=== PATIENT | female | born 1955 | race Caucasian/White ===

== ENCOUNTER 2017-04-17 12:22 | Emergency (ER) | payer OTHER ==
[2017-04-17 12:30] VITALS: BP 142/77; PULSE 70; TEMP 97.7; BMI 31.3
--- NOTE | 2017-04-17 14:14 | PDOC ---
History of Present Illness - General Chief Complaint: Back Pain Stated Complaint: LOWER HIP/LEGS PAIN Time Seen by Provider: 04/17/17 13:01 History Source: Patient Exam Limitations: No Limitations - History of Present Illness Initial Comments: 04/17/17 14:29 My chief complaint: Lower back pain radiating down but ox hip areas and down legs History of present illness: Patient is a 61-year-old female with a history of [id number]-ztemhirtv diabetes, restless leg syndrome, migraines, hyperlipidemia , mitral valve prolapse, and history of herniated disc from L1-L4 noted on an MRI from 04/21/2013. Patient is here today reporting that she started to feel lower back pain radiating to her buttocks and hip areas and then down bilateral legs 4 days ago. Patient is at [employer] and does do some lifting. Patient denies any numbness of her legs or any saddle anesthesia. Patient does have intermittent incontinency with laughing however this is been for many years and nothing worse. 04/17/17 14:57 04/17/17 14:57 Occurred: reports: other (4 days ) Severity: reports: moderate Pain Location: reports: back (lower back radiates to buttock/hip down b/l legs) , lower extremity (b/l legs ) Method of Injury: Yes: unknown Modifying Factors: improves with: None Loss of Consciousness: no loss of consciousness Past History - Past Medical History Allergies/Adverse Reactions: Allergies Allergy/AdvReac Type Severity Reaction Status Date / Time No Known Allergies Allergy Verified 04/17/17 12:25 Home Medications: Ambulatory Orders Aspirin 81 mg PO DAILY 03/03/14 Multivits W-Iron,Hematinic [Spectravite] 1 each PO DAILY 03/03/14 [place]-3 Acid Ethyl Esters [Lovaza -] 2,000 mg PO BID 03/03/14 Omeprazole 40 mg PO DAILY 03/03/14 Pramipexole Dihydrochloride [Mirapex -] 0.25 mg PO BID 03/03/14 Rosuvastatin Calcium [Crestor] 10 mg PO DAILY 03/03/14 Topiramate 50 mg PO BID 03/03/14 Oxycodone HCl/Acetaminophen [Percocet 5-325 mg Tablet] 1 tab PO Q6H PRN #12 tablet MDD 4 04/17/17 Asthma: Yes Cardiac Disorders: Yes (MVP) Diabetes: Yes Hypercholesterolemia: Yes Suicide Attempt (Hx): No - Surgical History Cholecystectomy: Yes - Family Disease History Family Disease History: Heart Disease: Father - Immunization History Immunization Up to Date: Yes - Psycho/Social/Smoking Cessation Hx Anxiety: No Suicidal Ideation: No Smoking Status: No Smoking History: Never smoked Years of Tobacco Use: 0 Have you smoked in the past 12 months: No Number of Cigarettes Smoked Daily: 2 If you are a former smoker, when did you quit?: years ago Information on smoking cessation initiated: No 'Breaking Loose' booklet given: 03/03/14 Hx Alcohol Use: No Drug/Substance Use Hx: No Substance Use Type: None Hx Substance Use Treatment: No Review of Systems - Review of Systems Able to Perform ROS?: Yes Constitutional: No: Symptoms Reported HEENTM: No: Symptoms Reported Respiratory: No: Symptoms reported Cardiac (ROS): No: Symptoms Reported ABD/GI: No: Symptoms Reported : No: Symptoms Reported Musculoskeletal: Yes: Back Pain (radiates across back than to b/l buttock/hip and down b/l legs for 4 days ) Integumentary: No: Symptoms Reported Neurological: No: Symptoms reported *Physical Exam - Vital Signs Last Vital Signs Temp Pulse Resp BP Pulse Ox 97.7 F 70 18 142/77 97 04/17/17 12:23 04/17/17 12:23 04/17/17 12:23 04/17/17 12:23 04/17/17 12:23 - Physical Exam General Appearance: Yes: Appropriately Dressed Respiratory/Chest: positive: Lungs Clear, Normal Breath Sounds. negative: Chest Tender, Respiratory Distress Cardiovascular: positive: Regular Rhythm, Regular Rate, S1, S2 Gastrointestinal/Abdominal: positive: Normal Bowel Sounds, Soft. negative: Tender, Organomegaly, Pulsatile Mass, Distended, Guarding, Rebound, Tenderness, Hernia, Mass, Hepatomegaly, Spleenomegaly Musculoskeletal: positive: Normal Inspection, Decreased Range of Motion (at waist ). negative: CVA Tenderness, CVA Tenderness (R), CVA Tenderness (L), Vertebral Tenderness Extremity: positive: Normal Capillary Refill, Normal Inspection, Normal Range of Motion Integumentary: positive: Normal Color Neurologic: positive: Alert, Normal Response, Motor Strength 5/5 (b/l legs ), Responsive, Other (negative b/l legs ). negative: Respond to painful stimul, Numbness, Sensory Deficit Deep Tendon Reflexes: Knee (L): 3+, Knee (R): 3+ Medical Decision Making - Medical Decision Making 04/17/17 14:58 Patient is a 61-year-old female with a history of kpo-amfwvyi-yofcfmmbp diabetes, restless leg syndrome, migraines, hyperlipidemia, mitral valve prolapse, and history of herniated disc from L1-L4 noted on an MRI from 2012. Patient is here today reporting that she started to feel lower back pain radiating to her buttocks and hip areas and then down bilateral legs 4 days ago. Patient is at [employer] and does do some lifting. Patient denies any numbness of her legs or any saddle anesthesia. Patient does have intermittent incontinency with laughing however this is been for many years and nothing worse. Pt. denies any recent lower back pain with radiculopathy PLAN: xray lumbar sacral multi endplate spurs and multilevel mild to moderate disc space is noted. Moderate to advanced degenerative changes of the posterior elements are noted. There is osteopenia. No fracture or subluxation is seen. Impression degenerative changes Dr. Castañeda percocet 5mg/325mg po now than every 6 hrs every 6 hrs prn pain # 12 tabs Follow up with orthopedist and neurologist as soon as possible 04/17/17 15:06 04/17/17 15:44 04/17/17 15:53 *DC/Admit/Observation/Transfer Diagnosis at time of Disposition: Lumbar pain with radiation down both legs - Discharge Dispostion Disposition: HOME Condition at time of disposition: Stable - Prescriptions Prescriptions: Oxycodone HCl/Acetaminophen [Percocet 5-325 mg Tablet] 1 tab PO Q6H PRN #12 tablet MDD 4 PRN Reason: Pain Level 6-10 - Referrals Referrals: Zahra Aviles MD [Primary Care Provider] - Lorenzo Kelly MD [Staff Physician] - - Patient Instructions Additional Instructions: AVOID any strenuous activities or exercise FOLLOW UP WITH YOUR NEUROLOGIST SOON POSSIBLE FOLLOW UP WITH ORTHOPEDIST SOON POSSIBLE RETURN TO EMERGENCY ROOM IF ANY NUMBNESS OF LEGS OR GROIN OR WORSENING PAIN PATIENT VOICED UNDERSTANDING OF DISCHARGE INSTRUCTIONS AND ALL QUESTIONS WERE ANSWERED - Post Discharge Activity Work/School Note: Back to Work
[2017-04-17] MEDS ORDERED: OXYCODONE/APAP 5/325MG COMBO TABLET PO ONE (14:22)
[2017-04-17] MEDS ORDERED: OXYCODONE/APAP 5/325MG COMBO TABLET ONE (14:25)
== END 2017-04-17 16:02 | disposition home or self-care (01) ==
LOC: JERFT 12:22
DX: M54.5 Low back pain (principal); E78.5 Hyperlipidemia, unspecified; E11.9 Type 2 diabetes mellitus without complications; I34.1 Nonrheumatic mitral (valve) prolapse; G25.81 Restless legs syndrome; Z79.82 Long term (current) use of aspirin
CPT/HCPCS: 72100-TC; 99281-25

== ENCOUNTER 2017-07-25 09:55 | Emergency (ER) | payer OTHER ==
[2017-07-25 10:01] VITALS: BP 139/71; PULSE 77; TEMP 98; BMI 31.3
[2017-07-25] MEDS ORDERED: KETOROLAC TROMETHAMINE 60 MG/2 ML VIAL IM ONE (11:05)
[2017-07-25] MEDS ORDERED: KETOROLAC TROMETHAMINE 60 MG/2 ML VIAL ONE (11:09)
--- NOTE | 2017-07-25 12:20 | PDOC ---
History of Present Illness - General Chief Complaint: Pain Stated Complaint: LT HEEL PAIN Time Seen by Provider: 07/25/17 10:50 History Source: Patient Exam Limitations: No Limitations - History of Present Illness Initial Comments: 07/25/17 12:16 61 yr female with 4 days left heel pain. denies injury works at [employer] standing long hours. pt denies redness or fever. Occurred: reports: just prior to arrival Past History - Past Medical History Allergies/Adverse Reactions: Allergies Allergy/AdvReac Type Severity Reaction Status Date / Time No Known Allergies Allergy Verified 07/25/17 09:58 Home Medications: Ambulatory Orders Aspirin 81 mg PO DAILY 03/03/14 Multivits W-Iron,Hematinic [Spectravite] 1 each PO DAILY 03/03/14 [place]-3 Acid Ethyl Esters [Lovaza -] 2,000 mg PO BID 03/03/14 Omeprazole 40 mg PO DAILY 03/03/14 Pramipexole Dihydrochloride [Mirapex -] 0.25 mg PO BID 03/03/14 Rosuvastatin Calcium [Crestor] 10 mg PO DAILY 03/03/14 Topiramate 50 mg PO BID 03/03/14 Oxycodone HCl/Acetaminophen [Percocet 5-325 mg Tablet] 1 tab PO Q6H PRN #12 tablet MDD 4 04/17/17 Naproxen [Naprosyn -] 500 mg PO BID PRN #14 tablet 07/25/17 Asthma: Yes Cardiac Disorders: Yes (MVP) Diabetes: Yes Hypercholesterolemia: Yes Suicide Attempt (Hx): No - Surgical History Cholecystectomy: Yes - Family Disease History Family Disease History: Heart Disease: Father - Immunization History Immunization Up to Date: Yes - Psycho/Social/Smoking Cessation Hx Anxiety: No Suicidal Ideation: No Smoking Status: No Smoking History: Former smoker Years of Tobacco Use: 0 Have you smoked in the past 12 months: No Number of Cigarettes Smoked Daily: 2 If you are a former smoker, when did you quit?: years ago Information on smoking cessation initiated: No 'Breaking Loose' booklet given: 03/03/14 Hx Alcohol Use: No Drug/Substance Use Hx: No Substance Use Type: None Hx Substance Use Treatment: No *Physical Exam - Vital Signs Last Vital Signs Temp Pulse Resp BP Pulse Ox 98 F 77 19 139/71 98 07/25/17 09:58 07/25/17 09:58 07/25/17 09:58 07/25/17 09:58 07/25/17 09:58 - Physical Exam General Appearance: Yes: Nourished, Appropriately Dressed HEENT: positive: EOMI, KRISTIE Extremity: positive: Normal Capillary Refill, Normal Inspection, Normal Range of Motion, Tender (posterior heel, ttp , no swelling or redness , nv intact, achiles tendon intact ) Integumentary: positive: Normal Color, Dry, Warm Neurologic: positive: Fully Oriented, Alert, Normal Mood/Affect, Normal Response , Motor Strength / Procedures - Splinting Progress: 07/25/17 12:17 naz wrap to heel and soft sole shoe ED Treatment Course - RADIOLOGY Radiology Studies Ordered: Category Date Time Status ANKLE-LEFT [RAD] Stat Radiology 07/25/17 11:04 Completed - Medications Given in the ED: ED Medications Discontinued Medications Generic Name Dose Route Start Last Admin Trade Name Freq PRN Reason Stop Dose Admin Ketorolac Tromethamine 60 mg 07/25/17 11:05 07/25/17 11:13 Toradol Injection - IM 07/25/17 11:06 60 mg ONCE ONE Administration Medical Decision Making - Medical Decision Making 07/25/17 12:16 cc: pain to back of heel left side for 4 days no trauma no redness or fever pt states tender with walking and to touch. *DC/Admit/Observation/Transfer Diagnosis at time of Disposition: Heel spur - Discharge Dispostion Disposition: HOME Condition at time of disposition: Good - Prescriptions Prescriptions: Naproxen [Naprosyn -] 500 mg PO BID PRN #14 tablet PRN Reason: Pain - Referrals Referrals: Zahra Aviles MD [Primary Care Provider] - Manas Lozano MD [Staff Physician] - - Patient Instructions Additional Instructions: please follow with the combat control manager call today to make appointment use the naz wrap and hard sole shoe as needed you can also purchase in the store a heel pad () to put in your shoe to help with pain take naprosyn for pain as needed
== END 2017-07-25 12:21 | disposition home or self-care (01) ==
LOC: JERFT 09:55
PROC: 3E0233Z Introduction of Anti-inflammatory into Muscle, Percutaneous Approach (ICD-10-PCS; principal; 2017-07-25)
DX: M77.9 Enthesopathy, unspecified (principal); E78.00 Pure hypercholesterolemia, unspecified; E11.9 Type 2 diabetes mellitus without complications; I34.1 Nonrheumatic mitral (valve) prolapse; J45.909 Unspecified asthma, uncomplicated
CPT/HCPCS: 73610-TC-LT; 96372; 99281-25

== ENCOUNTER 2018-02-04 07:05 | Day surgery (SDC) | payer OTHER ==
[2018-02-03 15:03] VITALS: BMI 34.1
[2018-02-04] MEDS ORDERED: PROPOFOL 20 ML ONE ×4 (08:01)
[2018-02-04] MEDS ORDERED: SUCCINYLCHOLINE CHLORIDE 200 MG/10 ML VIAL ONE (08:01)
[2018-02-04 08:50] VITALS: TEMP 98.3
[2018-02-04 09:30] VITALS: BP 112/50; PULSE 60
--- NOTE | 2018-02-05 14:07 | PATH ---
Surgical Pathology Report Patient Name: CLEMENT CORRALES [facility]. Rec. #: [id number] /Age/Gender: 1955 (Age: 62) / F Account: [id number] Location: U-ENDOSCOPY Taken: 02/04/2018 Received: 02/04/2018 Reported: 02/05/2018 Physicians: Melvin Prieto M.D. Specimen(s) Received BX CECAL VALVE POLYP Clinical History Colon cancer screening Colon polyp, diverticulosis Final Diagnosis COLON, ILEOCECAL VALVE, BIOPSY: HYPERPLASTIC POLYP. Electronically Signed Eric Mcadams M.D. Gross Description Received in formalin, labeled "biopsy cecal valve polyp" is a neal, irregular portion of soft tissue measuring 0.3 cm. in greatest dimension. The specimen is submitted in toto in one cassette. [facility]/02/04/2018 [facility]/02/04/2018
== END 2018-02-04 09:40 | disposition home or self-care (01) ==
LOC: JASU-ENDO 07:05
PROVIDERS: ATTEND Internal Medicine Gastroenterology
PROC: 0DBC8ZX Excision of Ileocecal Valve, Via Natural or Artificial Opening Endoscopic, Diagnostic (ICD-10-PCS; principal; 2018-02-04 08:00)
DX: Z12.11 Encounter for screening for malignant neoplasm of colon (principal); D12.6 Benign neoplasm of colon, unspecified; K57.30 Diverticulosis of large intestine without perforation or abscess without bleeding; K64.8 Other hemorrhoids
CPT/HCPCS: 82962; 88305-TC

== ENCOUNTER 2018-05-22 08:43 | Emergency (ER) | payer SELFPAY ==
[2018-05-22 09:44] VITALS: TEMP 97.3; BMI 33.5
[2018-05-22] MEDS ORDERED: ACETAMINOPHEN 500 MG TABLET (FP) PO ONE (09:46)
--- NOTE | 2018-05-22 11:04 | PDOC ---
History of Present Illness - General Stated Complaint: SYNCOPY Time Seen by Provider: 05/22/18 08:55 - History of Present Illness Initial Comments: 05/22/18 10:46 62 F with h/o NIDDM, HTN, HDL, asthma, hypercholesterolemia, migraines, presents to ED with syncopal episode. Pt states that she was at work today when she started to feel lightheaded and flushed. She states that she felt like her blood sugar was low because she has had these symptoms in the past when her sugar was low. Pt drank some coffee with sugar in it but shortly after, she lost consciousness. Pt states that the next thing she remembers is waking up on the floor with her coworkers checking her sugar. Pt denies ever having CP/SOB/ palpitations. Denies any symptoms currently other than a headache. Does not know if she hit her head or not. Pt states that she took her diabetes medication this morning as scheduled after eating breakfast. Her sugar this morning was in the 90s. Pt denies any recent F/C. Denies N/V. Pt has had multiple similar episodes in the past, all of which she attribute to low blood sugar. Denies h/o cardiac arrhythmia. Past History - Past Medical History Allergies/Adverse Reactions: Allergies Allergy/AdvReac Type Severity Reaction Status Date / Time No Known Allergies Allergy Verified 07/25/17 09:58 Home Medications: Ambulatory Orders Aspirin 81 mg PO DAILY 03/03/14 Pramipexole Dihydrochloride [Mirapex -] 0.25 mg PO TID 03/03/14 Rosuvastatin Calcium [Crestor] 10 mg PO DAILY 03/03/14 Topiramate 50 mg PO DAILY 03/03/14 Fish Oil/Borage/Flax/Om3,6,9 1 [[place] 3-6-9 1,200 mg Softgel] 1 cap PO DAILY Omeprazole 20 mg PO DAILY 02/03/18 Sitagliptin Phos/Metformin HCl [Janumet 50-500 mg Tablet] 2 tab PO BID 02/03/18 Multivitamin with Iron [Multivitamins with Iron] 1 each PO DAILY 02/04/18 Anemia: No Asthma: Yes Cancer: No Cardiac Disorders: Yes (MVP) CVA: No COPD: No DVT: No Dementia: No Diabetes: Yes (NIDDM) Dialysis: No GI Disorders: No Disorders: No HTN: No Hypercholesterolemia: Yes Kidney Stones: No Liver Disease: No Psychiatric Problems: No Seizures: No Thyroid Disease: No Lung CA: No - Surgical History Abdominal Surgery: No Appendectomy: No Cardiac Surgery: No Cholecystectomy: Yes (LAPAROSCOPIC) Gastric Stapling: No GI Surgery: No Lung Surgery: No Neurologic Surgery: No Orthopedic Surgery: Yes (RIGHT SHOULDER SURGERY) - Family Disease History Family Disease History: Heart Disease: Father - Immunization History Immunization Up to Date: Yes - Suicide/Smoking/Psychosocial Hx Smoking Status: No Smoking History: Never smoked Years of Tobacco Use: 0 Have you smoked in the past 12 months: No Number of Cigarettes Smoked Daily: 2 If you are a former smoker, when did you quit?: years ago Information on smoking cessation initiated: No 'Breaking Loose' booklet given: 03/03/14 Hx Alcohol Use: No Drug/Substance Use Hx: No Substance Use Type: None Hx Substance Use Treatment: No Cardiac Specific PMH - Complaint Specific PMHX GERD: No Myocardial Infarction: No Pacemaker: Yes (HYPERLIPIDEMIA) Review of Systems - Review of Systems Comments:: 05/22/18 10:50 "GENERAL/CONSTITUTIONAL: No fever or chills. No weakness. HEAD, EYES, EARS, NOSE AND THROAT: No change in vision. No ear pain or discharge. No sore throat. CARDIOVASCULAR: No chest pain or shortness of breath. RESPIRATORY: No cough, wheezing, or hemoptysis. GASTROINTESTINAL: No nausea, vomiting, diarrhea or constipation. GENITOURINARY: No dysuria, frequency, or change in urination. MUSCULOSKELETAL: No joint or muscle swelling or pain. No neck or back pain. SKIN: No rash NEUROLOGIC: + headache, no vertigo or change in strength/sensation. ENDOCRINE: No increased thirst. No abnormal weight change. HEMATOLOGIC/LYMPHATIC: No anemia, easy bleeding, or history of blood clots. ALLERGIC/IMMUNOLOGIC: No hives or skin allergy. " *Physical Exam - Vital Signs Last Vital Signs Temp Pulse Resp BP Pulse Ox 97.3 F L 72 18 138/72 98 05/22/18 09:00 05/22/18 09:00 05/22/18 09:00 05/22/18 09:00 05/22/18 09:00 - Physical Exam Comments: 05/22/18 11:05 "GENERAL: Awake, alert, and fully oriented, in no acute distress. HEAD: No signs of trauma EYES: PERRLA, EOMI, sclera anicteric, conjunctiva clear ENT: Auricles normal inspection, hearing grossly normal, nares patent, oropharynx clear without exudates. Moist mucosa NECK: Nontender, no stepoffs, Normal ROM, supple, no lymphadenopathy, JVD, or masses LUNGS: Breath sounds equal, clear to auscultation bilaterally. No wheezes, and no crackles HEART: Regular rate and rhythm, normal S1 and S2, no murmurs, rubs or gallops ABDOMEN: Soft, nontender, normoactive bowel sounds. No guarding, no rebound. No masses EXTREMITIES: Normal range of motion, no edema. No clubbing or cyanosis. No cords, erythema, or tenderness NEUROLOGICAL: Cranial nerves II through XII intact. 5/5 strength and sensation in all extremities, Normal speech, normal gait, normal cerebellar function SKIN: Warm, Dry, normal turgor, no rashes or lesions noted. " Heart Score/ECG Review - ECG Impressions Comment:: 05/22/18 11:06 NSR, no BINTA/STDs, no TWIs, axis wnl, intervals wnl, rate 68 ED Treatment Course - LABORATORY CBC & Chemistry Diagram: 05/22/18 11:00 05/22/18 11:00 - ADDITIONAL ORDERS Additional order review: Laboratory Results 05/22/18 05/22/18 05/22/18 11:40 11:00 11:00 Sodium 138 Potassium 4.8 Chloride 103 Carbon Dioxide 28 Anion Gap 7 L BUN 20 H Creatinine 0.8 Creat Clearance w eGFR > 60 POC Glucometer Random Glucose 234 H Calcium 8.9 Total Bilirubin 0.4 AST 23 ALT 38 Alkaline Phosphatase 93 Creatine Kinase Troponin I B-Natriuretic Peptide 48.76 Total Protein 7.3 Albumin 3.6 Urine Color Yellow Urine Appearance Clear Urine pH 5.0 D Ur Specific [place] 1.020 Urine Protein Negative Urine Glucose (UA) 1+ H Urine Ketones Negative Urine Blood Negative Urine Nitrite Negative Urine Bilirubin Negative Urine Urobilinogen Negative Ur Leukocyte Esterase Negative 05/22/18 05/22/18 11:00 09:10 Sodium Potassium Chloride Carbon Dioxide Anion Gap BUN Creatinine Creat Clearance w eGFR POC Glucometer 250.33000 Random Glucose Calcium Total Bilirubin AST ALT Alkaline Phosphatase Creatine Kinase 144 Troponin I < 0.02 B-Natriuretic Peptide Total Protein Albumin Urine Color Urine Appearance Urine pH Ur Specific [place] Urine Protein Urine Glucose (UA) Urine Ketones Urine Blood Urine Nitrite Urine Bilirubin Urine Urobilinogen Ur Leukocyte Esterase 05/22/18 05/22/18 11:00 09:10 RBC 4.68 MCV 87.0 MCHC 32.5 RDW 13.9 MPV 10.4 Neutrophils % 77.6 D Lymphocytes % 15.8 D Monocytes % 5.7 Eosinophils % 0.2 D Basophils % 0.7 POC Glucometer 250.92241 - RADIOLOGY Radiology Studies Ordered: Category Date Time Status HEAD CT WITHOUT CONTRAST [CT] Stat CT Scan 05/22/18 09:46 Completed CHEST PA & LAT [RAD] Stat Radiology 05/22/18 09:45 Completed - Medications Given in the ED: ED Medications Discontinued Medications Generic Name Dose Route Start Last Admin Trade Name Freq PRN Reason Stop Dose Admin Acetaminophen 1,000 mg 05/22/18 09:46 05/22/18 09:50 Tylenol - PO 05/22/18 09:47 1,000 mg ONCE ONE Administration Medical Decision Making - Medical Decision Making 05/22/18 11:06 62 F with syncopal episode. Possible 2/2 hypoglycemia as pt reports similar episodes in the past and prodrome of flushing and lightheadedness, which she states occurs when she's hypoglycemic. Cardiac arrhythmia less likely as pt with completely normal EKG. PE unlikely as pt denies CP/SOB, has stable vitals. Pt reports headache after falling, likely 2/2 hitting head. No headache preceding episode to suggest SAH. No neuro deficits at this time. - Labs, trop - CXR, UA to r/o infectious process - Head CT - Reassess 05/22/18 12:19 Labs wnl CXR and Head CT unremarkable. Pt reassessed - continues to feel well. Pt is well appearing, with normal vitals. Clinically stable for DC at this time. I discussed the physical exam findings, ancillary test results and final diagnoses with the patient. I answered all of the patient's questions. The patient was satisfied with the care received and felt comfortable with the discharge plan and treatment plan. The patient agrees to follow up with the primary care physician within 24-72 hours. *DC/Admit/Observation/Transfer Diagnosis at time of Disposition: Syncope - Discharge Dispostion Disposition: HOME - Referrals Referrals: Zahra Aviles MD [Primary Care Provider] - - Patient Instructions Printed Discharge Instructions: DI for Syncope in Adults (Fainting) Additional Instructions: Your labs, imaging, and EKG today were unremarkable. However, this does not rule out all serious medical conditions. You need to follow up with your primary care doctor within 1 week for further evaluation. You may need a Holter monitor to evaluate your heart for any sort of arrhythmia. If you experience recurrent fainting episodes, chest pain, shortness of breath, palpitations, lightheadedness, or any other concerning symptoms, return to the ER immediately. - Post Discharge Activity - Attestations Physician Attestion: 05/22/18 12:22 I, Dr. John Grant MD, attest that this document has been prepared under my direction and personally reviewed by me in its entirety. I further attest, that it accurately reflects all work, treatment, procedures and medical decision -making performed by me.
[2018-05-22 11:16] LABS: BASO % 0.7 % (0-2.0); EOS % 0.2 % (0-4.5); HEMATOCRIT 40.7 % (32.4-45.2); HEMOGLOBIN 13.2 GM/dL (10.7-15.3); LYMPH % 15.8 % (8-40); MCH 28.3 pg (25.7-33.7); MCHC 32.5 g/dl (32.0-36.0); MEAN PLT VOLUME 10.4 fl (7.5-11.1); MONO % 5.7 % (3.8-10.2); NEUT % 77.6 % (42.8-82.8); PLATELET COUNT 217 K/MM3 (134-434); RBC 4.68 M/mm3 (3.60-5.2); RDW 13.9 % (11.6-15.6); WHITE BLOOD COUNT 7.4 K/mm3 (4.0-10.0)
[2018-05-22] MEDS ORDERED: ACETAMINOPHEN INJECTION 100 ML IVPB ONE (11:23)
[2018-05-22 11:24] LABS: ALBUMIN 3.6 g/dl (3.4-5.0); ANION GAP 7 (8-16); BLOOD UREA NITROGEN 20 mg/dL (7-18); CALCIUM 8.9 mg/dL (8.5-10.1); CHLORIDE 103 mmol/L (98-107); CO2 28 mmol/L (21-32); GLUCOSE,RANDOM 234 mg/dL (74-106); SODIUM 138 mmol/L (136-145)
[2018-05-22 11:30] LABS: ALK PHOS 93 U/L (45-117); BILIRUBIN,TOTAL 0.4 mg/dL (0.2-1.0); CREATININE 0.8 mg/dL (0.55-1.02); SGPT/ALT 38 U/L (12-78); TOT PROT 7.3 g/dl (6.4-8.2)
[2018-05-22 11:33] LABS: SGOT/AST 23 U/L (15-37)
[2018-05-22 11:34] LABS: POTASSIUM 4.8 mmol/L (3.5-5.1)
[2018-05-22 11:54] LABS: URINE APPEARANCE CLEAR; URINE BILIRUBIN NEGATIVE (<2.0 mg/dL); URINE COLOR YELLOW; URINE GLUCOSE (UA) 1+ (NEGATIVE); URINE KETONE NEGATIVE (NEGATIVE); URINE LEUK ESTERASE NEGATIVE (NEGATIVE); URINE NITRITE NEGATIVE (NEGATIVE); URINE PROTEIN NEGATIVE (NEGATIVE); URINE UROBILINOGEN NEGATIVE mg/dL (0.2-1.0)
[2018-05-22 13:18] VITALS: BP 134/74; PULSE 74
--- NOTE | 2018-05-25 20:32 | EKG ---
Test Reason : Blood Pressure : / mmHG Vent. Rate : 070 BPM Atrial Rate : 070 BPM P-R Int : 164 ms QRS Dur : 084 ms QT Int : 408 ms P-R-T Axes : 056 040 043 degrees QTc Int : 440 ms NORMAL SINUS RHYTHM NORMAL ECG WHEN COMPARED WITH ECG OF 14-SEP-2016 15:00, NO SIGNIFICANT CHANGE WAS FOUND Confirmed by MD PAVITHRA, MISTY ([id number]) on 05/25/2018 8:31:56 PM Referred By: Confirmed By:MISTY ARSHAD MD
--- NOTE | 2018-05-29 12:13 | EKG ---
Test Reason : Blood Pressure : / mmHG Vent. Rate : 068 BPM Atrial Rate : 068 BPM P-R Int : 164 ms QRS Dur : 082 ms QT Int : 412 ms P-R-T Axes : 053 038 045 degrees QTc Int : 438 ms NORMAL SINUS RHYTHM NORMAL ECG WHEN COMPARED WITH ECG OF 22-MAY-2018 09:02, NO SIGNIFICANT CHANGE WAS FOUND Confirmed by LIZABETH CARLTON MD ([id number]) on 05/29/2018 12:13:05 PM Referred By: Confirmed By:LIZABETH CARLTON MD
== END 2018-05-22 13:25 | disposition home or self-care (01) ==
LOC: JER 08:43
DX: R55 Syncope and collapse (principal); I10 Essential (primary) hypertension; E78.5 Hyperlipidemia, unspecified; G43.909 Migraine, unspecified, not intractable, without status migrainosus; E11.9 Type 2 diabetes mellitus without complications; Z79.84 Long term (current) use of oral hypoglycemic drugs
CPT/HCPCS: 36415; 70450-TC; 71046-TC-FY; 80053; 81003; 82550; 82962; 83880; 84484; 85025; 93005; 93010; 99282-25

== ENCOUNTER 2018-09-03 16:03 | Emergency (ER) | payer OTHER ==
--- NOTE | 2018-09-03 16:16 | PDOC ---
Rapid Medical Evaluation Chief Complaint: Pain, Acute Time Seen by Provider: 09/03/18 16:13 Medical Evaluation: Allergies Allergy/AdvReac Type Severity Reaction Status Date / Time No Known Allergies Allergy Verified 07/25/17 09:58 09/03/18 16:14 I have performed a brief in person evaluation of this patient. 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 She denies previous injuries or surgeries to her right knee. Pain 08/19. Pertinent PE findings: Lungs Clear Heart RRR MS: Limited eval due to pants on at triage. Pt has pain upon palpation to the medial aspect. Pt has pain with flexion. Psych: Appropriate affect I have ordered the following: Right Knee pain The patient will proceed to the [facility] for further evaluation: Discharge Disposition - Diagnosis Knee pain, acute Qualifiers: Laterality: right Qualified Code(s): M25.561 - Pain in right knee - Referrals - Patient Instructions - Post Discharge Activity
[2018-09-03 16:17] VITALS: BP 135/63; PULSE 75; TEMP 97.8; BMI 30.5
--- NOTE | 2018-09-03 17:30 | PDOC ---
History of Present Illness - General Chief Complaint: Pain, Acute Stated Complaint: RT KNEE INJURY Time Seen by Provider: 09/03/18 16:13 History Source: Patient Exam Limitations: No Limitations - History of Present Illness Initial Comments: 09/03/18 17:26 62 yr female with pain to right knee after twisting it felt a pop at 2pm today. 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 pt has no prior history of knee injury. Extremity Pain Location - Extremity Pain Location Extremity Pain Locations: right: knee Past History - Past Medical History Allergies/Adverse Reactions: Allergies Allergy/AdvReac Type Severity Reaction Status Date / Time No Known Allergies Allergy Verified 09/03/18 16:16 Home Medications: Ambulatory Orders Aspirin 81 mg PO DAILY 03/03/14 Pramipexole Dihydrochloride [Mirapex -] 0.25 mg PO TID 03/03/14 Rosuvastatin Calcium [Crestor] 10 mg PO DAILY 03/03/14 Topiramate 50 mg PO DAILY 03/03/14 Fish Oil/Borage/Flax/Om3,6,9 1 [Roscoe 3-6-9 1,200 mg Softgel] 1 cap PO DAILY Omeprazole 20 mg PO DAILY 02/03/18 Sitagliptin Phos/Metformin HCl [Janumet 50-500 mg Tablet] 2 tab PO BID 02/03/18 Multivitamin with Iron [Multivitamins with Iron] 1 each PO DAILY 02/04/18 Lisinopril 10 mg PO ASDIR 09/03/18 Anemia: No Asthma: Yes Cancer: No Cardiac Disorders: Yes (MVP) CVA: No COPD: No DVT: No Dementia: No Diabetes: Yes (NIDDM) Dialysis: No GI Disorders: No Disorders: No HTN: No Hypercholesterolemia: Yes Kidney Stones: No Liver Disease: No Psychiatric Problems: No Seizures: No Thyroid Disease: No Lung CA: No Other medical history: spinal stenosis - Surgical History Abdominal Surgery: No Appendectomy: No Cardiac Surgery: No Cholecystectomy: Yes (LAPAROSCOPIC) Gastric Stapling: No GI Surgery: No Lung Surgery: No Neurologic Surgery: No Orthopedic Surgery: Yes (RIGHT SHOULDER SURGERY) - Family Disease History Family Disease History: Heart Disease: Father - Immunization History Immunization Up to Date: Yes - Suicide/Smoking/Psychosocial Hx Smoking Status: No Smoking History: Never smoked Years of Tobacco Use: 0 Have you smoked in the past 12 months: Yes Number of Cigarettes Smoked Daily: 2 If you are a former smoker, when did you quit?: years ago Information on smoking cessation initiated: No 'Breaking Loose' booklet given: 03/03/14 Hx Alcohol Use: No Drug/Substance Use Hx: No Substance Use Type: None Hx Substance Use Treatment: No Review of Systems - Review of Systems Able to Perform ROS?: Yes Is the patient limited Stateless proficient: No Constitutional: No: Symptoms Reported HEENTM: No: Symptoms Reported, Dental Problems Respiratory: No: Symptoms reported Cardiac (ROS): No: Symptoms Reported ABD/GI: No: Symptoms Reported : No: Symptoms Reported Musculoskeletal: Yes: Symptoms Reported Integumentary: No: Symptoms Reported *Physical Exam - Vital Signs Last Vital Signs Temp Pulse Resp BP Pulse Ox 97.8 F 75 18 135/63 100 09/03/18 16:14 09/03/18 16:14 09/03/18 16:14 09/03/18 16:14 09/03/18 16:14 - Physical Exam General Appearance: Yes: Nourished, Appropriately Dressed HEENT: positive: EOMI, KRSITIE Extremity: positive: Normal Inspection, Normal Range of Motion, Tender (medial knee right side 5/5 strength FROM of the knee , nv intact ) Integumentary: positive: Normal Color, Dry, Warm Procedures - Splinting Rafita Bandage: yes, 4" Medical Decision Making - Medical Decision Making 09/03/18 17:28 cc: knee injury at work xray is negative will place rafita wrap RICE at home follow up with the orthopedist *DC/Admit/Observation/Transfer Diagnosis at time of Disposition: Knee pain, acute Qualifiers: Laterality: right Qualified Code(s): M25.561 - Pain in right knee - Discharge Dispostion Disposition: HOME Condition at time of disposition: Good - Referrals Referrals: John Ventura MD [Staff Physician] - - Patient Instructions Additional Instructions: elevate and apply ice every 2hrs for 20 minutes take ibuprofen 600mg every 6-8hrs for pain as needed follow with or your orthopedist for follow up - Post Discharge Activity Forms/Work/School Notes: Back to Work
== END 2018-09-03 17:42 | disposition home or self-care (01) ==
LOC: JERFT 16:03
DX: M25.561 Pain in right knee (principal); X50.1XXA Overexertion from prolonged static or awkward postures, initial encounter; Y93.89 Activity, other specified; Y92.59 Other trade areas as the place of occurrence of the external cause; Y99.0 Civilian activity done for income or pay
CPT/HCPCS: 73564-TC-RT-FY; 99281-25

== ENCOUNTER 2018-09-11 16:04 | Inpatient (IN) | payer OTHER ==
[2018-09-11] MEDS ORDERED: SODIUM CHLORIDE 1,000 ML IV STA ×2 (17:25→19:58)
--- NOTE | 2018-09-11 17:29 | PDOC ---
Rapid Medical Evaluation Chief Complaint: Blood Sugar Problem Time Seen by Provider: 09/11/18 17:25 Medical Evaluation: Allergies Allergy/AdvReac Type Severity Reaction Status Date / Time No Known Allergies Allergy Verified 09/03/18 16:16 09/11/18 17:27 c/o hyperglycemia and nausea/ vomiting/ diarrhea x 6 month for the 4 days it has been worse. reports vomiting 10x and diarrhea x 12 today. no sick contact. afebrile Pe: patient alert ox3 A: hyperglycemia p: labs IVF ua patient to the ER for further management Discharge Disposition - Diagnosis Hyperglycemia Nausea & vomiting Qualifiers: Vomiting type: unspecified Vomiting Intractability: intractable Qualified Code( s): R11.2 - Nausea with vomiting, unspecified - Referrals - Patient Instructions - Post Discharge Activity
[2018-09-11 17:56] LABS: BASO % 0.6 % (0-2.0); EOS % 0.1 % (0-4.5); HEMATOCRIT 41.8 % (32.4-45.2); HEMOGLOBIN 14.2 GM/dL (10.7-15.3); MCH 29.4 pg (25.7-33.7); MCHC 34.1 g/dl (32.0-36.0); MEAN CELL VOLUME 86.2 fl (80-96); MEAN PLT VOLUME 9.8 fl (7.5-11.1); MONO % 7.2 % (3.8-10.2); NEUT % 84.1 % (42.8-82.8); PLATELET COUNT 207 K/MM3 (134-434); RBC 4.85 M/mm3 (3.60-5.2); RDW 13.2 % (11.6-15.6); WHITE BLOOD COUNT 10.9 K/mm3 (4.0-10.0)
[2018-09-11 17:58] LABS: VENOUS PC02 39.7 mmHg (38-52); VENOUS PH 7.44 (7.32-7.42); VENOUS PO2 34.2 mmHg (28-48)
[2018-09-11 18:40] LABS: ALBUMIN 3.4 g/dl (3.4-5.0); ALK PHOS 119 U/L (45-117); ANION GAP 11 MMOL/L (8-16); BILIRUBIN,TOTAL 0.4 mg/dL (0.2-1); BLOOD UREA NITROGEN 15 mg/dL (7-18); CALCIUM 8.9 mg/dL (8.5-10.1); CHLORIDE 93 mmol/L (98-107); CO2 26 mmol/L (21-32); CREATININE 0.8 mg/dL (0.55-1.3); GLUCOSE,RANDOM 176 mg/dL (74-106); POTASSIUM 4.1 mmol/L (3.5-5.1); SGOT/AST 19 U/L (15-37); SGPT/ALT 30 U/L (13-61); SODIUM 130 mmol/L (136-145); TOT PROT 7.6 g/dl (6.4-8.2)
[2018-09-11] MEDS ORDERED: ACETAMINOPHEN 1000 MG/100 ML VIAL (NON FORMULARY) IVPB ONE (19:27)
[2018-09-11] MEDS ORDERED: ONDANSETRON 4 MG/2 ML VIAL IVPB ONE (19:27)
[2018-09-11] MEDS ORDERED: ONDANSETRON 4 MG/2 ML VIAL ONE (19:37)
[2018-09-11] MEDS ORDERED: ACETAMINOPHEN INJECTION 100 ML IVPB ONE (19:37)
--- NOTE | 2018-09-11 19:44 | PDOC ---
History of Present Illness - General Chief Complaint: Vomiting/Diarrhea Stated Complaint: LIGHTHEADED Time Seen by Provider: 09/11/18 17:25 History Source: Patient Exam Limitations: No Limitations - History of Present Illness Initial Comments: 09/11/18 19:34 Pt is a 63yo f with PMH of DM, HLD, Migraine, RLS presenting to ED with complaints of diarrhea, vomiting, lightheadedness, generalized body aches going on for the past 6 months but has gotten worse. Pt says she had 10 episodes of nbnb emesis yesterday and 12 episodes today. She says she is unable to keep solids or liquids down. She has been taking her medications. She admits to cough and shortness of breath, chest pain from coughing and on/off chills. Denies fever, abdominal pain, urinary complaints, numbness/tingling, neurological deficits. Last colonoscopy was 4-5months ago and was told everything was normal. PMD: Stefan Neurologist: Verito PMH: see hpi PSH: hysterectomy Meds: Buspar, Topamax, pramiprexole, omeprazole, lisinopril, atorvastatin, Janumet Social: denies Allergies: nkda Past History - Past Medical History Allergies/Adverse Reactions: Allergies Allergy/AdvReac Type Severity Reaction Status Date / Time No Known Allergies Allergy Verified 09/11/18 17:26 Home Medications: Ambulatory Orders Aspirin 81 mg PO DAILY 03/03/14 Pramipexole Dihydrochloride [Mirapex -] 0.25 mg PO TID 03/03/14 Rosuvastatin Calcium [Crestor] 10 mg PO DAILY 03/03/14 Topiramate 50 mg PO DAILY 03/03/14 Fish Oil/Borage/Flax/Om3,6,9 1 [Goldonna 3-6-9 1,200 mg Softgel] 1 cap PO DAILY Omeprazole 20 mg PO DAILY 02/03/18 Sitagliptin Phos/Metformin HCl [Janumet 50-500 mg Tablet] 2 tab PO BID 02/03/18 Multivitamin with Iron [Multivitamins with Iron] 1 each PO DAILY 02/04/18 Lisinopril 10 mg PO ASDIR 09/03/18 Anemia: No Asthma: Yes Cancer: No Cardiac Disorders: Yes (MVP) CVA: No COPD: No DVT: No Dementia: No Diabetes: Yes (NIDDM) Dialysis: No GI Disorders: No Disorders: No HTN: No Hypercholesterolemia: Yes Kidney Stones: No Liver Disease: No Psychiatric Problems: No Seizures: No Thyroid Disease: No Lung CA: No - Surgical History Abdominal Surgery: No Appendectomy: No Cardiac Surgery: No Cholecystectomy: Yes (LAPAROSCOPIC) Gastric Stapling: No GI Surgery: No Lung Surgery: No Neurologic Surgery: No Orthopedic Surgery: Yes (RIGHT SHOULDER SURGERY) - Family Disease History Family Disease History: Heart Disease: Father - Immunization History Immunization Up to Date: Yes - Suicide/Smoking/Psychosocial Hx Smoking Status: No Smoking History: Never smoked Years of Tobacco Use: 0 Have you smoked in the past 12 months: Yes Number of Cigarettes Smoked Daily: 2 If you are a former smoker, when did you quit?: years ago 'Breaking Loose' booklet given: 03/03/14 Hx Alcohol Use: No Drug/Substance Use Hx: No Substance Use Type: None Hx Substance Use Treatment: No Review of Systems - Review of Systems Constitutional: Yes: Chills, Weight Stable. No: Fever, Night Sweats, Weakness HEENTM: No: Blurred Vision, Double Vision, Ear Discharge, Nose Pain, Nose Congestion Respiratory: Yes: Cough. No: Shortness of Breath, Wheezing, Hemoptysis Cardiac (ROS): Yes: Lightheadedness. No: Chest Pain, Palpitations, Syncope ABD/GI: Yes: Diarrhea, Nausea, Vomiting. No: Blood Streaked Bowels, Constipated , Abdominal cramping, Tarry Stools : No: Burning, Dysuria, Frequency, Hematuria Musculoskeletal: Yes: Back Pain, Joint Pain, Muscle Pain. No: Neck Pain, Joint Stiffness Integumentary: No: Rash Neurological: Yes: Headache. No: Numbness, Tingling, Tremors, Weakness Hematologic/Lymphatic: No: Anemia, Blood Clots *Physical Exam - Vital Signs Last Vital Signs Temp Pulse Resp BP Pulse Ox 99.2 F 88 18 136/76 99 09/11/18 17:26 09/11/18 17:26 09/11/18 17:26 09/11/18 17:26 09/11/18 17:26 - Physical Exam General Appearance: Yes: Nourished, Appropriately Dressed, Mild Distress HEENT: positive: EOMI, KRISTIE, TMs Normal, Pharynx Normal. negative: Pale Conjunctivae, Scleral Icterus (R), Scleral Icterus (L) Neck: positive: Trachea midline, Supple. negative: Lymphadenopathy (R), Lymphadenopathy (L) Respiratory/Chest: positive: Lungs Clear, Decreased Breath Sounds (in lower lung alas). negative: Labored Respiration, Crackles, Rales, Rhonchi, Wheezing Cardiovascular: positive: Regular Rhythm, Regular Rate, S1, S2, Systolic Murmur. negative: Edema, JVD Vascular Pulses: Carotid (R): 2+, Carotid (L): 2+, Dorsalis-Pedis (R): 2+, Doralis-Pedis (L): 2+ Gastrointestinal/Abdominal: positive: Normal Bowel Sounds, Soft. negative: Guarding, Rebound, Tenderness Musculoskeletal: negative: CVA Tenderness Integumentary: positive: Normal Color, Dry, Warm. negative: Pale, Cold, Clammy , Diaphoresis Neurologic: positive: representative government relations II-XII NML intact, Fully Oriented, Alert, Normal Mood/ Affect, Normal Response, Motor Strength / ED Treatment Course - LABORATORY CBC & Chemistry Diagram: 09/11/18 17:49 09/11/18 17:49 - ADDITIONAL ORDERS Additional order review: Laboratory Results 09/11/18 09/11/18 09/11/18 17:49 17:49 17:49 PTT (Actin FS) VBG pH 7.44 H POC VBG pCO2 39.7 POC VBG pO2 34.2 Mixed VBG HCO3 26.2 H Sodium 130 L Potassium 4.1 Chloride 93 L Carbon Dioxide 26 Anion Gap 11 BUN 15 Creatinine 0.8 Creat Clearance w eGFR > 60 Random Glucose 176 H Calcium 8.9 Total Bilirubin 0.4 AST 19 ALT 30 Alkaline Phosphatase 119 H Creatine Kinase 67 Troponin I < 0.02 Total Protein 7.6 Albumin 3.4 Acetone, Qual Negative L 09/11/18 17:49 PTT (Actin FS) 21.3 L VBG pH POC VBG pCO2 POC VBG pO2 Mixed VBG HCO3 Sodium Potassium Chloride Carbon Dioxide Anion Gap BUN Creatinine Creat Clearance w eGFR Random Glucose Calcium Total Bilirubin AST ALT Alkaline Phosphatase Creatine Kinase Troponin I Total Protein Albumin Acetone, Qual 09/11/18 17:49 RBC 4.85 MCV 86.2 MCHC 34.1 RDW 13.2 MPV 9.8 Neutrophils % 84.1 H Lymphocytes % 8.0 D Monocytes % 7.2 Eosinophils % 0.1 Basophils % 0.6 - RADIOLOGY Radiology Studies Ordered: Category Date Time Status ABDOMEN & PELVIS CT WITH CONTR [CT] Stat CT Scan 09/11/18 19:21 Ordered - Medications Given in the ED: ED Medications Discontinued Medications Generic Name Dose Route Start Last Admin Trade Name Dawitq PRN Reason Stop Dose Admin Sodium Chloride 1,000 mls @ 1,000 mls/hr 09/11/18 17:25 09/11/18 17:59 Normal Saline - IV 09/11/18 18:24 1,000 mls/hr .Q1H STA Administration Medical Decision Making - Medical Decision Making 09/11/18 19:44 Pt is a 63yo f with PMH of DM, HLD, Migraine, RLS presenting to ED with complaints of diarrhea, vomiting, lightheadedness, generalized body aches +KIRK Vitals: Selected Entries 09/11/18 17:26 Temperature 99.2 F Pulse Rate 88 Respiratory 18 Rate Blood Pressure 136/76 Blood Pressure 96 Mean O2 Sat by Pulse 99 Oximetry (%) PE: bilateral edema, nonpitting to ankles, benign abdomen, clear breath sounds. No neurological deficits, no rash, moist mucus membranes. DDx: infectious diarrhea, colitis, pancreatitis, cholecystitis, GE, Labs ordered by RME, fluids as well. Added on mg/phos/lipase. Giving zofran for nausea and Tylenol for pain. CTAP ordered Laboratory Tests 09/11/18 09/11/18 09/11/18 17:49 17:49 17:49 WBC 10.9 H Absolute Neuts (auto) 9.1 H Neutrophils % 84.1 H VBG pH 7.44 H Mixed VBG HCO3 26.2 H Sodium 130 L Potassium 4.1 Chloride 93 L Carbon Dioxide 26 Anion Gap 11 BUN 15 Creatinine 0.8 Creat Clearance w eGFR > 60 Random Glucose 176 H Calcium 8.9 Phosphorus 2.8 Magnesium 1.7 L Total Bilirubin 0.4 AST 19 ALT 30 Alkaline Phosphatase 119 H Creatine Kinase 67 Troponin I < 0.02 Total Protein 7.6 Albumin 3.4 Lipase 143 Acetone, Qual 09/11/18 17:49 WBC Absolute Neuts (auto) Neutrophils % VBG pH Mixed VBG HCO3 Sodium Potassium Chloride Carbon Dioxide Anion Gap BUN Creatinine Creat Clearance w eGFR Random Glucose Calcium Phosphorus Magnesium Total Bilirubin AST ALT Alkaline Phosphatase Creatine Kinase Troponin I Total Protein Albumin Lipase Acetone, Qual Negative L 09/11/18 20:[address] out of [address] scan, pt had syncopal episode. FSBG drawn 173. Oral temp 99.2, rectal done. 101.3. Ordered cxr and ekg. 09/11/18 20:32 CTAB: nonspecific focal infiltrate within the posterior lateral aspect of the left lower lobe. In that same region there is a possible small cavitary focus. No definite CT evidence of colitis. -CXR ordered EKG: nsr, normal axis, PA 168, Qtc 448. No merritt or depressions. T wave inversion in V1, flattened in III. 09/11/18 22:21 CXR- infiltrate noticed, however obscured by breast tissue. Will order CT Pt complaining of headaches, will give benadryl and reglan. 09/12/18 00:30 Pt complaining of worsening headaches. Will order CT head. Given morphine 4mg. Other than WBC of 10.9 and fever, pt does not meet sepsis criteria. No nuchal rigidity, no headaches, no recent fever/chills, low suspicion for meningitis at this time. considering tap if necessary. admitting paged. *DC/Admit/Observation/Transfer Diagnosis at time of Disposition: Nausea & vomiting Qualifiers: Vomiting type: unspecified Vomiting Intractability: intractable Qualified Code( s): R11.2 - Nausea with vomiting, unspecified Diarrhea Qualifiers: Diarrhea type: unspecified type Qualified Code(s): R19.7 - Diarrhea, unspecified PNA (pneumonia) Qualifiers: Pneumonia type: due to unspecified organism Laterality: left Lung location: lower lobe of lung Qualified Code(s): J18.1 - Lobar pneumonia, unspecified organism Headache Qualifiers: Headache type: unspecified Headache chronicity pattern: acute headache Intractability: not intractable Qualified Code(s): R51 - Headache Syncope Qualifiers: Syncope type: unspecified Qualified Code(s): R55 - Syncope and collapse - Discharge Dispostion Decision to Admit order: No - Referrals Referrals: Zahra Aviles MD [Primary Care Provider] - Jovi Moreno MD [Staff Physician] - - Patient Instructions - Post Discharge Activity
[2018-09-11 20:22] LABS: LIPASE 143 U/L (73-393); MAGNESIUM 1.7 mg/dL (1.8-2.4); PHOSPHOROUS 2.8 mg/dL (2.5-4.9)
--- NOTE | 2018-09-11 20:31 | PDOC ---
Attending Attestation - HPI HPI: 09/11/18 20:52 The patient is a 63 year old female, with a significant PMH of who presents to the emergency department with vomiting and diarrhea for several months. The patient states that her symptoms have worsened severely over the past several days. The patient reports about 12 episodes of non bloody vomiting as well as watery diarrhea. She states that she is unable to tolerate PO intake. The patient states that her last colonoscopy was about 4 months ago and findings were normal. The patient denies eating today. She denies any sick contact at home or at work. She states that she normally eats food from home. The patient denies any other symptoms. She denies any fever, chills, nausea, constipation, or urinary symptoms. She denies any chest pain, shortness of breath, headache or dizziness. The patient denies any other complaints. PCP: Dr. mirza - Physicial Exam PE: 09/11/18 20:52 GENERAL: (+)fever 101.3. Awake, alert, and fully oriented, in no acute distress HEAD: No signs of trauma EYES: PERRLA, EOMI, sclera anicteric, conjunctiva clear ENT: Auricles normal inspection, hearing grossly normal, nares patent, oropharynx clear without exudates. Moist mucosa NECK: Normal ROM, supple, no lymphadenopathy, JVD, or masses LUNGS: Breath sounds equal, clear to auscultation bilaterally. No wheezes, and no crackles HEART: Regular rate and rhythm, normal S1 and S2, no murmurs, rubs or gallops ABDOMEN: Soft, nontender, normoactive bowel sounds. No guarding, no rebound. No masses EXTREMITIES: (+)1+ pitting edema of legs bilaterally. Normal range of motion. No clubbing or cyanosis. No cords, erythema, or tenderness NEUROLOGICAL: Cranial nerves II through XII grossly intact. Normal speech, normal gait SKIN: Warm, Dry, normal turgor, no rashes or lesions noted. Documentation prepared by Margarita Driver, acting as vice president medical affairs for Peace Garza MD. <Margarita Driver - Last Filed: 09/11/18 20:52> - Resident Resident Name: Betsy Yoo - ED Attending Attestation I have performed the following: I have examined & evaluated the patient, The case was reviewed & discussed with the resident, I agree w/resident's findings & plan - HPI HPI: 09/11/18 20:30 Pt is febrile and she will be admitted for intractable vomiting and diarrhea and iniability to keep food down. - Medical Decision Making 09/11/18 20:30 Pt comes with body aches, diarrhea and fever. She has a cough, but non- productive. 09/12/18 00:45 Pt has a pneumonia/cavitary lesion in her chest and she will be treated and admitted for pneumonia. <Peace Garza - Last Filed: 09/12/18 00:45>
[2018-09-11] MEDS ORDERED: CEFTRIAXONE 1 GM in DEXTROSE 5%-WATER - 100 ML IVPB ONE (21:37)
[2018-09-11] MEDS ORDERED: METOCLOPRAMIDE HCL INJECTION 10 MG/2 ML VIAL IVPUSH ONE (21:41)
[2018-09-11] MEDS ORDERED: AZITHROMYCIN IVPB 500 MG in DEXTROSE 5%-WATER - 250 ML IVPB ONE (21:45)
[2018-09-11 22:28] LABS: URINE APPEARANCE CLEAR; URINE BILIRUBIN NEGATIVE (<2.0 mg/dL); URINE COLOR STRAW; URINE GLUCOSE (UA) NEGATIVE (NEGATIVE); URINE KETONE TRACE (NEGATIVE); URINE LEUK ESTERASE NEGATIVE (NEGATIVE); URINE NITRITE NEGATIVE (NEGATIVE); URINE PROTEIN NEGATIVE (NEGATIVE); URINE UROBILINOGEN NEGATIVE mg/dL (0.2-1.0)
[2018-09-11] MEDS ORDERED: METOCLOPRAMIDE HCL INJECTION 10 MG/2 ML VIAL ONE (23:56)
[2018-09-11] MEDS ORDERED: cefTRIAXone SODIUM 1 GM VIAL ONE (23:56)
[2018-09-11] MEDS ORDERED: AZITHROMYCIN IVPB 500 MG/250 ML BAG IVPB ONE ×2 (23:56→23:57)
[2018-09-12] MEDS ORDERED: morphine CARPU-JECT 4 MG/1 ML DISP.SYRIN IVPUSH ONE (00:10)
[2018-09-12] MEDS ORDERED: morphine SULFATE 4 MG/ML VIAL ONE (00:11)
[2018-09-12] MEDS ORDERED: ACETAMINOPHEN 1000 MG/100 ML VIAL (NON FORMULARY) IVPB ONE (02:09)
[2018-09-12] MEDS ORDERED: ACETAMINOPHEN INJECTION 100 ML IVPB ONE (02:10)
--- NOTE | 2018-09-12 02:11 | HP ---
CHIEF COMPLAINT: PCP: [facility] (Dr. Rodriguez) HISTORY OF PRESENT ILLNESS: Pt is a 63 y.o CF with PMH as documented presenting to the ER with a CC of abdominal pain and diarrhea and vomitting x6 months. Gets a crampy abdominal discomfort not made better or worse with anything, who she hasn't seen anyone else for, not relieved by conservative management. No melena/hematochezia/ hemetemesis; happens almost daily. Been happening more frequently for the past few days so chose to come to hospital. She gets dizzy occasionally with these sx. Denies any SOB or frequent, productive cough. She occasionally gets a non- bothersome dry and non-productive cough that she associates with worsening her nausea. She was taken for CT in the ER and found to have a possible LLL cavitary lesion with thickening of the terminal ilem. She syncopized after the CT; orthostatics not taken at that time. Negative trops. Head CT and Chest CT pending. Did not meet sepsis criteria, no meningeal signs. Admission requested to medicine ER course was notable for: (1)Imaging, ceftriaxone, fluids, azithro, symptomatic management (2) (3) Recent Travel: Denies PAST MEDICAL HISTORY: HTN, DM, Overweight, migraines, HLD, RLS PAST SURGICAL HISTORY: No recent abdominal procedures Social History: Smoking: Denies Alcohol: Denies Drugs: Denies Family History: Allergies No Known Allergies Allergy (Verified 09/11/18 17:26) HOME MEDICATIONS: Home Medications Medication Instructions Recorded Aspirin 81 mg PO DAILY 03/03/14 Pramipexole Dihydrochloride 0.25 mg PO TID 03/03/14 [Mirapex -] Rosuvastatin Calcium [Crestor] 10 mg PO DAILY 03/03/14 Topiramate 50 mg PO DAILY 03/03/14 Fish Oil/Borage/Flax/Om3,6,9 1 1 cap PO DAILY 02/03/18 [[place] 3-6-9 1,200 mg Softgel] Omeprazole 20 mg PO DAILY 02/03/18 Sitagliptin Phos/Metformin HCl 2 tab PO BID 02/03/18 [Janumet 50-500 mg Tablet] Multivitamin with Iron 1 each PO DAILY 02/04/18 [Multivitamins with Iron] Lisinopril 10 mg PO ASDIR 09/03/18 REVIEW OF SYSTEMS 10 sys ROS done and negative aside from HPI PHYSICAL EXAMINATION Vital Signs - 24 hr 09/11/18 09/11/18 09/11/18 17:26 19:10 22:00 Temperature 99.2 F 101.3 F H 99.0 F Pulse Rate 88 Pulse Rate [ 105 H 92 H Left Radial] Respiratory 18 20 20 Rate Blood Pressure 136/76 Blood Pressure 156/74 154/72 [Left Arm] O2 Sat by Pulse 99 98 98 Oximetry (%) GENERAL: Awake, alert, and fully oriented, in no acute distress. HEAD: Normal with no signs of trauma. EYES: Pupils equal, round and reactive to light, EARS, NOSE, THROAT: Ears normal, nares patent NECK: Normal range of motion, supple without lymphadenopathy, JVD, or masses. LUNGS: Breath sounds equal, clear to auscultation bilaterally HEART: Regular rate and rhythm, normal S1 and S2 without murmur, rub or gallop. ABDOMEN: Soft, nontender, not distended, normoactive bowel sounds MUSCULOSKELETAL: Normal range of motion at all joints. No bony deformities or tenderness. No CVA tenderness. UPPER EXTREMITIES: 2+ pulses, warm, well-perfused. No cyanosis. No clubbing. No peripheral edema. LOWER EXTREMITIES: 2+ pulses, warm, well-perfused NEUROLOGICAL: Cranial nerves II-XII intact. Normal speech. Normal gait. PSYCHIATRIC: Cooperative. Good eye contact. Appropriate mood and affect. SKIN: Warm, dry, normal turgor, no rashes or lesions noted, normal capillary refill. Laboratory Results - last 24 hr 09/11/18 09/11/18 09/11/18 17:49 17:49 17:49 WBC 10.9 H RBC 4.85 Hgb 14.2 Hct 41.8 MCV 86.2 MCH 29.4 MCHC 34.1 RDW 13.2 Plt Count 207 MPV 9.8 Absolute Neuts (auto) 9.1 H Neutrophils % 84.1 H Lymphocytes % 8.0 D Monocytes % 7.2 Eosinophils % 0.1 Basophils % 0.6 Nucleated RBC % 0 PTT (Actin FS) 21.3 L VBG pH POC VBG pCO2 POC VBG pO2 Mixed VBG HCO3 Sodium 130 L Potassium 4.1 Chloride 93 L Carbon Dioxide 26 Anion Gap 11 BUN 15 Creatinine 0.8 Creat Clearance w eGFR > 60 POC Glucometer Random Glucose 176 H Calcium 8.9 Phosphorus 2.8 Magnesium 1.7 L Total Bilirubin 0.4 AST 19 ALT 30 Alkaline Phosphatase 119 H Creatine Kinase 67 Troponin I < 0.02 Total Protein 7.6 Albumin 3.4 Lipase 143 Urine Color Urine Appearance Urine pH Ur Specific [place] Urine Protein Urine Glucose (UA) Urine Ketones Urine Blood Urine Nitrite Urine Bilirubin Urine Urobilinogen Ur Leukocyte Esterase Acetone, Qual 09/11/18 09/11/18 09/11/18 17:49 17:49 19:29 WBC RBC Hgb Hct MCV MCH MCHC RDW Plt Count MPV Absolute Neuts (auto) Neutrophils % Lymphocytes % Monocytes % Eosinophils % Basophils % Nucleated RBC % PTT (Actin FS) VBG pH 7.44 H POC VBG pCO2 39.7 POC VBG pO2 34.2 Mixed VBG HCO3 26.2 H Sodium Potassium Chloride Carbon Dioxide Anion Gap BUN Creatinine Creat Clearance w eGFR POC Glucometer Random Glucose Calcium Phosphorus Magnesium Total Bilirubin AST ALT Alkaline Phosphatase Creatine Kinase Troponin I Total Protein Albumin Lipase Cancelled Urine Color Urine Appearance Urine pH Ur Specific [place] Urine Protein Urine Glucose (UA) Urine Ketones Urine Blood Urine Nitrite Urine Bilirubin Urine Urobilinogen Ur Leukocyte Esterase Acetone, Qual Negative L 09/11/18 09/11/18 09/11/18 19:29 20:12 22:01 WBC RBC Hgb Hct MCV MCH MCHC RDW Plt Count MPV Absolute Neuts (auto) Neutrophils % Lymphocytes % Monocytes % Eosinophils % Basophils % Nucleated RBC % PTT (Actin FS) VBG pH POC VBG pCO2 POC VBG pO2 Mixed VBG HCO3 Sodium Potassium Chloride Carbon Dioxide Anion Gap BUN Creatinine Creat Clearance w eGFR POC Glucometer [phone] Random Glucose Calcium Phosphorus Cancelled Magnesium Cancelled Total Bilirubin AST ALT Alkaline Phosphatase Creatine Kinase Troponin I Total Protein Albumin Lipase Urine Color Straw Urine Appearance Clear Urine pH 6.0 Ur Specific [place] 1.044 H Urine Protein Negative Urine Glucose (UA) Negative Urine Ketones Trace H Urine Blood Negative Urine Nitrite Negative Urine Bilirubin Negative Urine Urobilinogen Negative Ur Leukocyte Esterase Negative Acetone, Qual ASSESSMENT/PLAN: Overall, this is a 63 y/o female presenting with nausea and vomitting found to have possible cavitary L-lung lesion alongside thickened terminal ileum. She syncopized in the CT scanner. She will be admitted to medicine. Thank you for allowing [facility] to take part in the ongoing care and management of your patient. 1) Nausea/Vomitting, chronic -Terminal ileum ?thickened on CT scan; could represent inflammatory changes and recommended followup with CT with PO contrast. Given her multiple imaging studies tonight will not do urgently but can be considered in the future -Protonix empirically; as on levaquin for PNA that will cover this if infective and will also add on metronidazole. Consider GI consult in AM but not urgent. -Stool studies sent (lactoferrin, cx). Given chronic diarrhea obtaining stool osm. Check lactoferrin. Low suspicion for Cdif given history. Checking ESR/ CRP to screen for IBD. 2) Lung changes -Radiology unable to rule out cavitary lesion; no recent travel, suspicious for potential pneumonia -Obtaining additional imaging; empiric levaquin as would be CAP -Checking quantiferon, sputum culture, pneumococcal Ag, legionella Ag. Consider additional tests per specialty services. -Dr. Ross and Dr. Gill consulted for Pulmonary medicine and ID respectively; awaiting their input and appreciate their presence. -Not on O2. 3) DM -Hold PO meds; SSI when inpatient. 4) Hyponatremia -130; empirically hydrating given histroy. Would be slightly hypovolemic. Checking serum/urine osm, checking urine Na. -Monior repeat Na; if worsening and severe consult nephro 5) HTN -Keep <160; hold PO meds now restart when clinically appropriate 6) HypoMg -Replacing with 4g IV 7) Headache -No neuro findings, no red flag signs. ER obtained CT; followup results. Symptomatic management. 8) Syncope in CT scanner -Monitoring on telemetry; no arrhythmias noted EKG. CT head pending. -Hydrating empirically; check orthostatics in AM -Checking echo; if recurring despite conservative workup consider additional testing (duplex, tilt, etc.). Well's score negligible so not suspecting PE. Troponin negative. Continue to monitor 9) HLD -Nonacute; followup OP Full Code Visit type - Emergency Visit Emergency Visit: No - New Patient This patient is new to me today: Yes Date on this admission: 09/12/18 - Critical Care Critical Care patient: No
[2018-09-12] MEDS ORDERED: MAGNESIUM 4GM/H20 - 4 GM/100 ML IVPB IVPB ONE (02:45)
[2018-09-12 03:18] LABS: BASO % 0.8 % (0-2.0); EOS % 0.1 % (0-4.5); HEMATOCRIT 37.9 % (32.4-45.2); HEMOGLOBIN 13.1 GM/dL (10.7-15.3); MCH 29.7 pg (25.7-33.7); MCHC 34.6 g/dl (32.0-36.0); MEAN CELL VOLUME 85.8 fl (80-96); MEAN PLT VOLUME 9.9 fl (7.5-11.1); MONO % 10.9 % (3.8-10.2); NEUT % 72.2 % (42.8-82.8); PLATELET COUNT 191 K/MM3 (134-434); RBC 4.42 M/mm3 (3.60-5.2); RDW 13.4 % (11.6-15.6); WHITE BLOOD COUNT 9.2 K/mm3 (4.0-10.0)
[2018-09-12 03:43] LABS: ALK PHOS 101 U/L (45-117); ANION GAP 8 MMOL/L (8-16); BILIRUBIN,TOTAL 0.3 mg/dL (0.2-1); BLOOD UREA NITROGEN 12 mg/dL (7-18); CALCIUM 8.2 mg/dL (8.5-10.1); CHLORIDE 101 mmol/L (98-107); CHOLESTEROL 201 mg/dL (50-200); CO2 26 mmol/L (21-32); CREATININE 0.7 mg/dL (0.55-1.3); GLUCOSE,RANDOM 163 mg/dL (74-106); HDL CHOLESTEROL 44 mg/dL (40-60); MAGNESIUM 1.7 mg/dL (1.8-2.4); POTASSIUM 4.2 mmol/L (3.5-5.1); SGOT/AST 13 U/L (15-37); SGPT/ALT 25 U/L (13-61); SODIUM 135 mmol/L (136-145); TOT PROT 6.5 g/dl (6.4-8.2); TRIGLYCERIDES 166 mg/dL (0-150)
[2018-09-12] MEDS ORDERED: SODIUM CHLORIDE 1,000 ML IV SCH (04:00)
[2018-09-12] MEDS: PRAMIPEXOLE DIHYDROCHLORIDE 0.25 MG TABLET PO SCH ×3 (05:48→21:54)
[2018-09-12] MEDS ORDERED: levoFLOXacin 750 MG TABLET PO SCH (06:00)
[2018-09-12] MEDS ORDERED: metroNIDAZOLE 250 MG TABLET PO SCH (06:00)
[2018-09-12] MEDS: ACETAMINOPHEN 325 MG TABLET (FP) PO PRN (06:30)
[2018-09-12] MEDS: MULTIVITAMINS THER W-MINERALS COMBO TABLET (FP) PO SCH (09:23)
[2018-09-12] MEDS: ENOXAPARIN NA (PORCINE) 40 MG/0.4 ML DISP.SYRIN SQ SCH (09:23)
[2018-09-12] MEDS: ASPIRIN COATED 81 MG TABLET.EC PO SCH (09:23)
[2018-09-12] MEDS: TOPIRAMATE 25 MG TABLET (FP) PO SCH (09:23)
[2018-09-12] MEDS: PANTOPRAZOLE 40 MG TABLET (FP) PO SCH (09:23)
[2018-09-12] MEDS ORDERED: PATIENT'S OWN MEDICATION (NON-FORMULARY) (Fish Oil/Borage/Flax/Om3,6,9 1 [Omega 3-6-9 1,20 PO SCH (10:00)
--- NOTE | 2018-09-12 11:08 | CON.ID ---
Consult Consult Specialty:: infectious diseases Reason for Consultation:: dirrhoea - History of Present Illness Chief Complaint: dirrhoea History of Present Illness: 63yo f with PMH of DM, HLD, Migraine,admitted with dirrhoea .Patients mentions that her dirrhoea has been going for about 6 months patient also mentions that she also has lost about 30 pounds . also patient mentions that multiple episodes of vomiting yesterday She admits to cough and shortness of breath, chest pain from coughing and on/off chills Denies fever, abdominal pain, urinary complaints, numbness/tingling, neurological deficits. Last colonoscopy was 4-5months ago and was told everything was normal. patient when worked up was found to have mass in the lung on the left side patient mentions that every time she eats she has dirrhoea and this morning also she had the same. patient had very watery dirrhoea this morning which also has smell clinically patient looks comfortable - History Source History Provided By: Patient Limitations to Obtaining History: No Limitations - Past Medical History DOUGH MOLDER: Yes: Seizure Cardio/Vascular: Yes: HTN, Hyperlipdemia Pulmonary: Yes: Asthma Gastrointestinal: Yes: GERD Psych: Yes: Depression Endocrine: Yes: Diabetes Mellitus (Not on meds though --diet controlled.) - Alcohol/Substance Use Hx Alcohol Use: No - Smoking History Smoking history: Never smoked Have you smoked in the past 12 months: Yes Aproximately how many cigarettes per day: 2 If you are a former smoker, when did you quit?: years ago Home Medications - Allergies Allergies/Adverse Reactions: Allergies Allergy/AdvReac Type Severity Reaction Status Date / Time No Known Allergies Allergy Verified 09/11/18 17:26 - Home Medications Home Medications: Ambulatory Orders Aspirin 81 mg PO DAILY 03/03/14 Pramipexole Dihydrochloride [Mirapex -] 0.25 mg PO TID 03/03/14 Rosuvastatin Calcium [Crestor] 10 mg PO DAILY 03/03/14 Topiramate 50 mg PO DAILY 03/03/14 Fish Oil/Borage/Flax/Om3,6,9 1 [[place] 3-6-9 1,200 mg Softgel] 1 cap PO DAILY Omeprazole 20 mg PO DAILY 02/03/18 Sitagliptin Phos/Metformin HCl [Janumet 50-500 mg Tablet] 2 tab PO BID 02/03/18 Multivitamin with Iron [Multivitamins with Iron] 1 each PO DAILY 02/04/18 Lisinopril 10 mg PO ASDIR 09/03/18 Family Disease History - Family Disease History Family Disease History: Other: Son (seizure) Review of Systems - Review of Systems Constitutional: reports: No Symptoms Eyes: reports: No Symptoms HENT: reports: No Symptoms Neck: reports: No Symptoms Cardiovascular: reports: No Symptoms Respiratory: reports: No Symptoms Gastrointestinal: reports: Diarrhea Genitourinary: reports: No Symptoms Musculoskeletal: reports: No Symptoms Integumentary: reports: No Symptoms Neurological: reports: No Symptoms Endocrine: reports: No Symptoms Hematology/Lymphatic: reports: No Symptoms Psychiatric: reports: No Symptoms Physical Exam Vital Signs: Vital Signs Temperature 99.5 F 09/12/18 08:00 Pulse Rate 88 09/12/18 08:00 Respiratory Rate 16 09/12/18 08:00 Blood Pressure 132/60 09/12/18 08:00 O2 Sat by Pulse Oximetry (%) 98 09/12/18 09:00 Constitutional: Yes: No Distress, Calm Neck: Yes: Supple Cardiovascular: Yes: Regular Rate and Rhythm Respiratory: Yes: Regular, CTA Bilaterally Gastrointestinal: Yes: Normal Bowel Sounds, Soft, Vomiting, Other (dirrhoea) Musculoskeletal: Yes: WNL Extremities: Yes: WNL Neurological: Yes: Alert, Oriented Psychiatric: Yes: Alert, Oriented Labs: CBC, BMP 09/12/18 03:02 09/12/18 03:02 Imaging - Results Chest X-ray: Report Reviewed, Image Reviewed X-ray: Report Reviewed, Image Reviewed Cat Scan: Report Reviewed, Image Reviewed Ultrasound: Report Reviewed, Image Reviewed Assessment/Plan this patient coming in with profuse dirrhoea and loss of weight for last 6 months which has not improved work up shows mass on the left side of the lung I have low suspicion of her dirrhoea being infectious ,worry is that is due to cancer or if she has some infectious 1 r/o malignancy of the lung 2 dirrhoea 3 weight loss 4 fever 5 dm plan will not start on abx at the moment evaluation of lung mass r/o dirrhoea due to fat malabsorbtion stool cx for parasites await cdiff results rest as per the team
--- NOTE | 2018-09-12 12:40 | EKG ---
Test Reason : Blood Pressure : / mmHG Vent. Rate : 077 BPM Atrial Rate : 077 BPM P-R Int : 168 ms QRS Dur : 082 ms QT Int : 396 ms P-R-T Axes : 066 046 045 degrees QTc Int : 448 ms NORMAL SINUS RHYTHM NORMAL ECG WHEN COMPARED WITH ECG OF 22-MAY-2018 11:07, NO SIGNIFICANT CHANGE WAS FOUND Confirmed by BULL SALAZAR MD ([id number]) on 09/12/2018 12:39:52 PM Referred By: Confirmed By:BULL SALAZAR MD
--- NOTE | 2018-09-12 12:59 | PN ---
Progress Note (short form) - Note Progress Note: has chronic diarrhea 6 months , says she has been losing weight , has decreased appetite. No SOB , has been having a dry cough Febrile + feels weak no body aches has migraine headaches with nausea+ Vital Signs - 24 hr 09/11/18 09/11/18 09/11/18 17:26 19:10 22:00 Temperature 99.2 F 101.3 F H 99.0 F Pulse Rate 88 Pulse Rate [ 105 H 92 H Left Radial] Respiratory 18 20 20 Rate Blood Pressure 136/76 Blood Pressure 156/74 154/72 [Left Arm] O2 Sat by Pulse 99 98 98 Oximetry (%) 09/12/18 09/12/18 09/12/18 00:30 02:15 04:22 Temperature 100.2 F H 101.5 F H 98.9 F Pulse Rate 89 Pulse Rate [ 91 H 93 H Left Radial] Respiratory 19 18 20 Rate Blood Pressure 139/63 Blood Pressure 152/67 155/72 [Left Arm] O2 Sat by Pulse 100 97 98 Oximetry (%) 09/12/18 09/12/18 09/12/18 06:00 08:00 09:00 Temperature 99.2 F 99.5 F Pulse Rate 81 88 Pulse Rate [ Left Radial] Respiratory 16 Rate Blood Pressure 145/78 132/60 Blood Pressure [Left Arm] O2 Sat by Pulse 98 Oximetry (%) Laboratory Results - last 24 hr 09/11/18 09/11/18 09/11/18 17:49 17:49 17:49 WBC 10.9 H RBC 4.85 Hgb 14.2 Hct 41.8 MCV 86.2 MCH 29.4 MCHC 34.1 RDW 13.2 Plt Count 207 MPV 9.8 Absolute Neuts (auto) 9.1 H Neutrophils % 84.1 H Lymphocytes % 8.0 D Monocytes % 7.2 Eosinophils % 0.1 Basophils % 0.6 Nucleated RBC % 0 ESR PTT (Actin FS) 21.3 L VBG pH POC VBG pCO2 POC VBG pO2 Mixed VBG HCO3 Sodium 130 L Potassium 4.1 Chloride 93 L Carbon Dioxide 26 Anion Gap 11 BUN 15 Creatinine 0.8 Creat Clearance w eGFR > 60 POC Glucometer Random Glucose 176 H Hemoglobin A1c % Serum Osmolality Calcium 8.9 Phosphorus 2.8 Magnesium 1.7 L Total Bilirubin 0.4 AST 19 ALT 30 Alkaline Phosphatase 119 H Creatine Kinase 67 Troponin I < 0.02 C-Reactive Protein Total Protein 7.6 Albumin 3.4 Triglycerides Cholesterol Total LDL Cholesterol HDL Cholesterol Lipase 143 Urine Color Urine Appearance Urine pH Ur Specific [place] Urine Protein Urine Glucose (UA) Urine Ketones Urine Blood Urine Nitrite Urine Bilirubin Urine Urobilinogen Ur Leukocyte Esterase Acetone, Qual 09/11/18 09/11/18 09/11/18 17:49 17:49 19:29 WBC RBC Hgb Hct MCV MCH MCHC RDW Plt Count MPV Absolute Neuts (auto) Neutrophils % Lymphocytes % Monocytes % Eosinophils % Basophils % Nucleated RBC % ESR PTT (Actin FS) VBG pH 7.44 H POC VBG pCO2 39.7 POC VBG pO2 34.2 Mixed VBG HCO3 26.2 H Sodium Potassium Chloride Carbon Dioxide Anion Gap BUN Creatinine Creat Clearance w eGFR POC Glucometer Random Glucose Hemoglobin A1c % Serum Osmolality Calcium Phosphorus Magnesium Total Bilirubin AST ALT Alkaline Phosphatase Creatine Kinase Troponin I C-Reactive Protein Total Protein Albumin Triglycerides Cholesterol Total LDL Cholesterol HDL Cholesterol Lipase Cancelled Urine Color Urine Appearance Urine pH Ur Specific [place] Urine Protein Urine Glucose (UA) Urine Ketones Urine Blood Urine Nitrite Urine Bilirubin Urine Urobilinogen Ur Leukocyte Esterase Acetone, Qual Negative L 09/11/18 09/11/18 09/11/18 19:29 20:12 22:01 WBC RBC Hgb Hct MCV MCH MCHC RDW Plt Count MPV Absolute Neuts (auto) Neutrophils % Lymphocytes % Monocytes % Eosinophils % Basophils % Nucleated RBC % ESR PTT (Actin FS) VBG pH POC VBG pCO2 POC VBG pO2 Mixed VBG HCO3 Sodium Potassium Chloride Carbon Dioxide Anion Gap BUN Creatinine Creat Clearance w eGFR POC Glucometer [phone] Random Glucose Hemoglobin A1c % Serum Osmolality Calcium Phosphorus Cancelled Magnesium Cancelled Total Bilirubin AST ALT Alkaline Phosphatase Creatine Kinase Troponin I C-Reactive Protein Total Protein Albumin Triglycerides Cholesterol Total LDL Cholesterol HDL Cholesterol Lipase Urine Color Straw Urine Appearance Clear Urine pH 6.0 Ur Specific [place] 1.044 H Urine Protein Negative Urine Glucose (UA) Negative Urine Ketones Trace H Urine Blood Negative Urine Nitrite Negative Urine Bilirubin Negative Urine Urobilinogen Negative Ur Leukocyte Esterase Negative Acetone, Qual 09/12/18 09/12/18 09/12/18 03:02 03:02 03:02 WBC 9.2 RBC 4.42 Hgb 13.1 Hct 37.9 MCV 85.8 MCH 29.7 MCHC 34.6 RDW 13.4 Plt Count 191 MPV 9.9 Absolute Neuts (auto) 6.6 Neutrophils % 72.2 Lymphocytes % 16.0 D Monocytes % 10.9 H Eosinophils % 0.1 Basophils % 0.8 Nucleated RBC % 0 ESR PTT (Actin FS) VBG pH POC VBG pCO2 POC VBG pO2 Mixed VBG HCO3 Sodium 135 L Potassium 4.2 Chloride 101 Carbon Dioxide 26 Anion Gap 8 BUN 12 Creatinine 0.7 Creat Clearance w eGFR > 60 POC Glucometer Random Glucose 163 H Hemoglobin A1c % 8.5 H Serum Osmolality Calcium 8.2 L Phosphorus Magnesium 1.7 L Total Bilirubin 0.3 AST 13 L ALT 25 Alkaline Phosphatase 101 Creatine Kinase 67 Troponin I < 0.02 C-Reactive Protein Total Protein 6.5 Albumin 3.0 L Triglycerides 166 H Cholesterol 201 H Total LDL Cholesterol 114 H HDL Cholesterol 44 Lipase Urine Color Urine Appearance Urine pH Ur Specific [place] Urine Protein Urine Glucose (UA) Urine Ketones Urine Blood Urine Nitrite Urine Bilirubin Urine Urobilinogen Ur Leukocyte Esterase Acetone, Qual 09/12/18 09/12/18 09/12/18 03:02 03:02 05:49 WBC RBC Hgb Hct MCV MCH MCHC RDW Plt Count MPV Absolute Neuts (auto) Neutrophils % Lymphocytes % Monocytes % Eosinophils % Basophils % Nucleated RBC % ESR 38 H PTT (Actin FS) VBG pH POC VBG pCO2 POC VBG pO2 Mixed VBG HCO3 Sodium Potassium Chloride Carbon Dioxide Anion Gap BUN Creatinine Creat Clearance w eGFR POC Glucometer 138 Random Glucose Hemoglobin A1c % Serum Osmolality 290 Calcium Phosphorus Magnesium Total Bilirubin AST ALT Alkaline Phosphatase Creatine Kinase Troponin I C-Reactive Protein 6.6 H Total Protein Albumin Triglycerides Cholesterol Total LDL Cholesterol HDL Cholesterol Lipase Urine Color Urine Appearance Urine pH Ur Specific [place] Urine Protein Urine Glucose (UA) Urine Ketones Urine Blood Urine Nitrite Urine Bilirubin Urine Urobilinogen Ur Leukocyte Esterase Acetone, Qual 09/12/18 11:27 WBC RBC Hgb Hct MCV MCH MCHC RDW Plt Count MPV Absolute Neuts (auto) Neutrophils % Lymphocytes % Monocytes % Eosinophils % Basophils % Nucleated RBC % ESR PTT (Actin FS) VBG pH POC VBG pCO2 POC VBG pO2 Mixed VBG HCO3 Sodium Potassium Chloride Carbon Dioxide Anion Gap BUN Creatinine Creat Clearance w eGFR POC Glucometer 209 Random Glucose Hemoglobin A1c % Serum Osmolality Calcium Phosphorus Magnesium Total Bilirubin AST ALT Alkaline Phosphatase Creatine Kinase Troponin I C-Reactive Protein Total Protein Albumin Triglycerides Cholesterol Total LDL Cholesterol HDL Cholesterol Lipase Urine Color Urine Appearance Urine pH Ur Specific [place] Urine Protein Urine Glucose (UA) Urine Ketones Urine Blood Urine Nitrite Urine Bilirubin Urine Urobilinogen Ur Leukocyte Esterase Acetone, Qual S1S2 RRR Lungs decreased Abd- soft, NT, ND No edema PLAN change diet Add Fioricet for migraine headaches, Zofran IV fluids Stool studies IV antibiotics spoke with ID, Pulmonary and GI diabetic control Problem List - Problems (1) Diarrhea Code(s): R19.7 - DIARRHEA, UNSPECIFIED Qualifiers: Diarrhea type: unspecified type Qualified Code(s): R19.7 - Diarrhea, unspecified (2) Headache Code(s): R51 - HEADACHE Qualifiers: Headache type: unspecified Headache chronicity pattern: acute headache Intractability: not intractable Qualified Code(s): R51 - Headache (3) Nausea & vomiting Code(s): R11.2 - NAUSEA WITH VOMITING, UNSPECIFIED Qualifiers: Vomiting type: unspecified Vomiting Intractability: intractable Qualified Code(s): R11.2 - Nausea with vomiting, unspecified (4) PNA (pneumonia) Code(s): J18.9 - PNEUMONIA, UNSPECIFIED ORGANISM Qualifiers: Pneumonia type: due to unspecified organism Laterality: left Lung location: lower lobe of lung Qualified Code(s): J18.1 - Lobar pneumonia, unspecified organism (5) Diabetes Code(s): E11.9 - TYPE 2 DIABETES MELLITUS WITHOUT COMPLICATIONS
--- NOTE | 2018-09-12 13:09 | CON.PULM ---
Consult Consult Specialty:: PULMONARY Referred by:: MEAGAN Reason for Consultation:: ABN CT CHEST - History of Present Illness Chief Complaint: COUGH/N/V DIARRHEA History of Present Illness: Pt is a 63 y.o female CC of abdominal pain and diarrhea and vomitting x6 months. Gets a crampy abdominal discomfort not made better or worse with anything, who she hasn't seen anyone else for, not relieved by conservative management. No melena/hematochezia/hemetemesis; happens almost daily. Been happening more frequently for the past few days so chose to come to hospital. She gets dizzy occasionally with these sx. Denies any SOB or frequent, productive cough. She occasionally gets a non-bothersome dry and non- productive cough that she associates with worsening her nausea. She was taken for CT in the ER and found to have a possible LLL cavitary lesion with thickening of the terminal ilem. She syncopized after the CT; orthostatics not taken at that time. Negative trops. Head CT and Chest CT pending. Did not meet sepsis criteria, no meningeal signs. 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 No: Alzheimer's Cardio/Vascular: Yes: HTN, Hyperlipdemia Pulmonary: Yes: Asthma. No: COPD, O2 Dependent, Pulmonary Embolus Gastrointestinal: Yes: GERD. No: Ascites Hepatobiliary: No: Cirrhosis Renal/: No: Renal Failure Reproductive: Yes: Postmenopausal Heme/Onc: No: Anemia Psych: Yes: Depression Endocrine: Yes: Diabetes Mellitus (Not on meds though --diet controlled.) - Alcohol/Substance Use Hx Alcohol Use: No - Smoking History Smoking history: Never smoked Have you smoked in the past 12 months: Yes Aproximately how many cigarettes per day: 2 If you are a former smoker, when did you quit?: years ago - Social History Usual Living Arrangement: With Spouse History of Recent Travel: No Home Medications - Allergies Allergies/Adverse Reactions: Allergies Allergy/AdvReac Type Severity Reaction Status Date / Time No Known Allergies Allergy Verified 09/11/18 17:26 - Home Medications Home Medications: Ambulatory Orders Aspirin 81 mg PO DAILY 03/03/14 Pramipexole Dihydrochloride [Mirapex -] 0.25 mg PO TID 03/03/14 Rosuvastatin Calcium [Crestor] 10 mg PO DAILY 03/03/14 Topiramate 50 mg PO DAILY 03/03/14 Fish Oil/Borage/Flax/Om3,6,9 1 [[place] 3-6-9 1,200 mg Softgel] 1 cap PO DAILY Omeprazole 20 mg PO DAILY 02/03/18 Sitagliptin Phos/Metformin HCl [Janumet 50-500 mg Tablet] 2 tab PO BID 02/03/18 Multivitamin with Iron [Multivitamins with Iron] 1 each PO DAILY 02/04/18 Lisinopril 10 mg PO ASDIR 09/03/18 Family Disease History - Family Disease History Family Disease History: Other: Son (seizure) Review of Systems - Review of Systems Constitutional: reports: Loss of Appetite. denies: Fever Eyes: denies: Blurred Vision HENT: denies: Difficult Swallowing Neck: denies: Decreased ROM Cardiovascular: reports: Shortness of Breath. denies: Chest Pain Respiratory: reports: Cough, Exercise Intolerance, SOB on Exertion. denies: Hemoptysis, Wheezing Gastrointestinal: reports: Abdominal Pain, Diarrhea, Nausea, Vomiting Genitourinary: reports: No Symptoms Breasts: reports: No Symptoms Reported Musculoskeletal: reports: No Symptoms Integumentary: reports: No Symptoms Neurological: reports: No Symptoms Endocrine: reports: No Symptoms Hematology/Lymphatic: reports: No Symptoms Psychiatric: reports: No Symptoms Physical Exam Vital Sings: Vital Signs Temperature 99.5 F 09/12/18 08:00 Pulse Rate 88 09/12/18 08:00 Respiratory Rate 16 09/12/18 08:00 Blood Pressure 132/60 09/12/18 08:00 O2 Sat by Pulse Oximetry (%) 98 09/12/18 09:00 Constitutional: Yes: Anxious Eyes: Yes: EOM Intact HENT: Yes: Normocephalic Neck: Yes: Trachea Midline Cardiovascular: Yes: Regular Rate and Rhythm, S1, S2 Respiratory: Yes: Diminished, Rhonchi ...Clubbing: No Gastrointestinal: Yes: Normal Bowel Sounds, Soft Renal/: Yes: WNL Breast(s): Yes: WNL Musculoskeletal: Yes: WNL Extremities: Yes: WNL Integumentary: Yes: WNL Neurological: Yes: Pre-Existing Deficit Labs: CBC, BMP 09/12/18 03:02 09/12/18 03:02 REST OF LABS REVIEWED Imaging - Results Chest X-ray: Report Reviewed, Image Reviewed Cat Scan: Report Reviewed, Image Reviewed Problem List - Problems (1) Diarrhea Code(s): R19.7 - DIARRHEA, UNSPECIFIED Qualifiers: Diarrhea type: unspecified type Qualified Code(s): R19.7 - Diarrhea, unspecified (2) Headache Code(s): R51 - HEADACHE Qualifiers: Headache type: unspecified Headache chronicity pattern: acute headache Intractability: not intractable Qualified Code(s): R51 - Headache (3) Nausea & vomiting Code(s): R11.2 - NAUSEA WITH VOMITING, UNSPECIFIED Qualifiers: Vomiting type: unspecified Vomiting Intractability: intractable Qualified Code(s): R11.2 - Nausea with vomiting, unspecified (4) PNA (pneumonia) Code(s): J18.9 - PNEUMONIA, UNSPECIFIED ORGANISM Qualifiers: Pneumonia type: due to unspecified organism Laterality: left Lung location: lower lobe of lung Qualified Code(s): J18.1 - Lobar pneumonia, unspecified organism (5) Asthma Code(s): J45.909 - UNSPECIFIED ASTHMA, UNCOMPLICATED Assessment/Plan CT FINDINGS LIKELY C/W COMMUNITY ACQUIRED PNEUMONIA CHRONIC DIARRHEA WORSE OVER PAST 5 DAYS WITH VOMITING MIGRAINE HEADACHES DEPRESSIVE DISORDER RLS WOULD PANCULTURE IV ANTIBIOTICS WILL NEED F/U CT 4-6 WEEKS AN OUTPATIENT TO DOCUMENT CLEARING O2 SUPPLEMENTATION PRN BRONCHODILATORS TO FACILITATE MUCOUS CLEARANCE WILL FOLLOW Meghna FIERRO MD
[2018-09-12] MEDS ORDERED: ONDANSETRON 4 MG/2 ML VIAL IVPUSH PRN (13:24)
[2018-09-12] MEDS ORDERED: AZITHROMYCIN IVPB 500 MG/250 ML BAG IVPB SCH (13:30)
[2018-09-12] MEDS ORDERED: MAGNESIUM SULF 50% (8.12 MEQ/2 ML-1 GM VIAL) IVPB ONE (13:30)
[2018-09-12] MEDS ORDERED: CEFTRIAXONE 1 GM in DEXTROSE 5%-WATER - 50 ML IVPB SCH (13:30)
[2018-09-12] MEDS ORDERED: PT OWN MED DRAWER 7, Y5N ONE ×2 (13:41→20:50)
[2018-09-12] MEDS: ACETAMINOPHEN/CAFFEINE/BUTALBITAL 1 TAB PO PRN ×2 (13:50→19:14)
[2018-09-12] MEDS: INSULIN SLIDING SCALE (NOVOLOG) 1 VIAL SQ SCH ×3 (13:53→21:12)
--- NOTE | 2018-09-12 16:39 | CON.GI ---
Consult Consult Specialty:: Gastroenterology Referred by:: Dr Sheree Chatterjee Reason for Consultation:: Diarrhea - History of Present Illness Chief Complaint: Diarrhea History of Present Illness: 63F describes having diarrhea since undergoing a colonoscopy with me on 02/04/18 which revealed no colitis or ileitis. [place] mild diverticulosis was noted and a small hyperplastic ileocecal valve polyp was removed. She had a h/o chronic constipation. She now reports that she has urgency to defecate shortly after eating and has been having fecal incontinence without intention to defecate. She denies abdominal cramps and passage of blood or mucus. Her stools have been semisoft to liquidy. She denies weight loss. No recent antibiotics or foreign travel. 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 NAFLD) Reproductive: Yes: Fibroids Psych: Yes: Depression Endocrine: Yes: Diabetes Mellitus (Not on meds though --diet controlled.) - Past Surgical History Past Surgical History: Yes: Cholecystectomy (laparoscopic), Colonoscopy, Hysterectomy (vaginal PEDRO LUIS) Additional Surgical History: right rotator cuff surgery. 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 (year): age 20 History of Recent Travel: No Home Medications - Allergies Allergies/Adverse Reactions: Allergies Allergy/AdvReac Type Severity Reaction Status Date / Time No Known Allergies Allergy Verified 09/11/18 17:26 - Home Medications Home Medications: Ambulatory Orders Aspirin 81 mg PO DAILY 03/03/14 Pramipexole Dihydrochloride [Mirapex -] 0.25 mg PO TID 03/03/14 Rosuvastatin Calcium [Crestor] 10 mg PO DAILY 03/03/14 Topiramate 50 mg PO DAILY 03/03/14 Fish Oil/Borage/Flax/Om3,6,9 1 [[place] 3-6-9 1,200 mg Softgel] 1 cap PO DAILY Omeprazole 20 mg PO DAILY 02/03/18 Sitagliptin Phos/Metformin HCl [Janumet 50-500 mg Tablet] 2 tab PO BID 02/03/18 Multivitamin with Iron [Multivitamins with Iron] 1 each PO DAILY 02/04/18 Lisinopril 10 mg PO ASDIR 09/03/18 Family Disease History - Family Disease History Family Disease History: Diabetes: Mother, Other: Father ( MVA), Brother ( drowned), Son (seizure) Other Family History: 5 aunts with breast cancer Review of Systems - Review of Systems Constitutional: reports: Other (Loss of smell after nose fracture) Eyes: reports: No Symptoms HENT: reports: No Symptoms Cardiovascular: reports: No Symptoms Respiratory: reports: No Symptoms Gastrointestinal: reports: Diarrhea Genitourinary: reports: No Symptoms Physical Exam-GI Vital Signs: Vital Signs Temperature 99.6 F 09/12/18 15:27 Pulse Rate 85 09/12/18 15:27 Respiratory Rate 16 09/12/18 15:27 Blood Pressure 135/62 09/12/18 15:27 O2 Sat by Pulse Oximetry (%) 98 09/12/18 09:00 CBC,CMP WBC 9.2 K/mm3 (4.0-10.0) 09/12/18 03:02 RBC 4.42 M/mm3 (3.60-5.2) 09/12/18 03:02 Hgb 13.1 GM/dL (10.7-15.3) 09/12/18 03:02 Hct 37.9 % (32.4-45.2) 09/12/18 03:02 MCV 85.8 fl (80-96) 09/12/18 03:02 MCH 29.7 pg (25.7-33.7) 09/12/18 03:02 MCHC 34.6 g/dl (32.0-36.0) 09/12/18 03:02 RDW 13.4 % (11.6-15.6) 09/12/18 03:02 Plt Count 191 K/MM3 (134-434) 09/12/18 03:02 MPV 9.9 fl (7.5-11.1) 09/12/18 03:02 Absolute Neuts (auto) 6.6 K/mm3 (1.5-8.0) 09/12/18 03:02 Neutrophils % 72.2 % (42.8-82.8) 09/12/18 03:02 Lymphocytes % 16.0 % (8-40) D 09/12/18 03:02 Monocytes % 10.9 % (3.8-10.2) H 09/12/18 03:02 Eosinophils % 0.1 % (0-4.5) 09/12/18 03:02 Basophils % 0.8 % (0-2.0) 09/12/18 03:02 Nucleated RBC % 0 % (0-0) 09/12/18 03:02 ESR 38 mm/hr (0-30) H 09/12/18 03:02 Sodium 135 mmol/L (136-145) L 09/12/18 03:02 Potassium 4.2 mmol/L (3.5-5.1) 09/12/18 03:02 Chloride 101 mmol/L (98-107) 09/12/18 03:02 Carbon Dioxide 26 mmol/L (21-32) 09/12/18 03:02 Anion Gap 8 MMOL/L (8-16) 09/12/18 03:02 BUN 12 mg/dL (7-18) 09/12/18 03:02 Creatinine 0.7 mg/dL (0.55-1.3) 09/12/18 03:02 Creat Clearance w eGFR > 60 (>60) 09/12/18 03:02 POC Glucometer 245 UNITS (80-120) 09/12/18 16:09 Random Glucose 163 mg/dL (74-106) H 09/12/18 03:02 Hemoglobin A1c % 8.5 % (4.2-6.3) H 09/12/18 03:02 Serum Osmolality 290 mosm/kg (278-305) 09/12/18 03:02 Calcium 8.2 mg/dL (8.5-10.1) L 09/12/18 03:02 Phosphorus Cancelled 09/11/18 19:29 Magnesium 1.7 mg/dL (1.8-2.4) L 09/12/18 03:02 Total Bilirubin 0.3 mg/dL (0.2-1) 09/12/18 03:02 AST 13 U/L (15-37) L 09/12/18 03:02 ALT 25 U/L (13-61) 09/12/18 03:02 Alkaline Phosphatase 101 U/L (45-117) 09/12/18 03:02 Creatine Kinase 67 IU/L (26-192) 09/12/18 03:02 Troponin I < 0.02 ng/ml (0.00-0.05) 09/12/18 03:02 C-Reactive Protein 6.6 MG/DL (0.00-0.3) H 09/12/18 03:02 Total Protein 6.5 g/dl (6.4-8.2) 09/12/18 03:02 Albumin 3.0 g/dl (3.4-5.0) L 09/12/18 03:02 Triglycerides 166 mg/dL (0-150) H 09/12/18 03:02 Cholesterol 201 mg/dL (50-200) H 09/12/18 03:02 Total LDL Cholesterol 114 mg/dL (5-100) H 09/12/18 03:02 HDL Cholesterol 44 mg/dL (40-60) 09/12/18 03:02 Lipase Cancelled 09/11/18 19:29 Current Medications Generic Name Dose Route Start Last Admin Trade Name Freq PRN Reason Stop Dose Admin Acetaminophen 650 mg 09/12/18 02:11 09/12/18 06:30 Tylenol - PO 650 mg Q4H PRN Administration PAIN Acetaminophen/Butalbital/Caffeine 1 tablet 09/12/18 13:26 09/12/18 13:50 Fioricet - PO 1 tablet Q4H PRN Administration HEADACHE Aspirin 81 mg 09/12/18 10:00 09/12/18 09:23 Ecotrin - PO 81 mg DAILY YESI Administration Enoxaparin Sodium 40 mg 09/12/18 10:00 09/12/18 09:23 Lovenox - SQ 40 mg DAILY YESI Administration Azithromycin 500 mg in 250 mls @ 250 mls/hr 09/12/18 22:00 Zithromax 500mg Ivpb (Pre-Docked) IVPB HS YESI Ceftriaxone Sodium 1 gm/ 50 mls @ 100 mls/hr 09/12/18 22:00 Dextrose IVPB HS YESI Insulin Aspart 1 vial 09/12/18 16:30 09/12/18 16:10 Novolog Vial Sliding Scale - SQ 4 units ACHS YESI Administration Protocol Multivitamins/Minerals 1 each 09/12/18 10:00 09/12/18 09:23 Theragran-M PO 1 each DAILY YESI Administration Ondansetron HCl 4 mg 09/12/18 13:24 09/12/18 13:51 Zofran Injection IVPUSH 4 mg Q6H PRN Administration NAUSEA Pantoprazole Sodium 40 mg 09/12/18 10:00 09/12/18 09:23 Protonix - PO 40 mg DAILY YESI Administration Pramipexole Dihydrochloride 0.25 mg 09/12/18 06:00 09/12/18 13:51 Mirapex - PO 0.25 mg TID YESI Administration Sumatriptan Succinate 25 mg 09/12/18 13:22 Imitrex - PO DAILY PRN HEADACHE Topiramate 50 mg 09/12/18 10:00 09/12/18 09:23 Topamax - PO 50 mg DAILY YESI Administration Constitutional: Yes: No Distress Eyes: Yes: Conjunctiva Clear HENT: Yes: Atraumatic Neck: Yes: Supple Cardiovascular: Yes: Regular Rate and Rhythm Respiratory: Yes: CTA Bilaterally Gastrointestinal Inspection: Yes: Hernia (nontender umbilical hernia), Scars ( healed laparoscopic incisions), Other (striae) ...Auscultate: Yes: Normoactive Bowel Sounds ...Palpate: Yes: Soft, Other (nontender,) ...Rectal Exam: Yes: Guaiac Negative (soft brown g neg stool) Edema: No Neurological: Yes: Alert, Oriented Labs: CBC, BMP 09/12/18 03:02 09/12/18 03:02 Imaging - Results Cat Scan: Report Reviewed (Viky Son Name: [facility] DEPARTMENT OF RADIOLOGY Phys: Larry Yoo RESIDENT : 1955 Age: 63 Sex: F [facility] Acct: [id number] Loc: [address] Exam Date: 09/11/18 Status: ANA LUISA [place] [id number] Unit Number: [id number] EXAM#: TYPE/EXAM: RESULT: [id number] CT/ABDOMEN PELVIS CT WITH CONTR Abdomen and pelvis CT (with contrast) Clinical information given: diarrhea/emesis, possible colitis Multiplanar imaging was performed from the intravenous administration of nonionic contrast. Enteric contrast was not administered. There is partial imaging of a nonspecific focal infiltrate within the posterior lateral aspect of the left lower lobe. In that same region there is a possible small cavitary focus. These findings were not present at the time of an abdomen/pelvic CT exam of 10/29/2016 which also partially imaged lower chest There is no definite CT evidence of colitis. Mild to moderate colitis may not be demonstrable on CT. There is possible mild concentric wall thickening involving the terminal ileum. Alternatively this appearance could be artifactual nature due to underdistention. No perienteric edema is visualized. There is no evidence of pneumoperitoneum, abscess,, free intraperitoneal fluid or bowel obstruction. Diffuse fatty infiltration of the liver is seen which was not definitely present at the time of the previous exam. The remainder of the study appears unchanged. As on the prior CT exam note is made of stable mildly increased mesenteric density centrally in association with several stable mildly enlarged mesenteric lymph nodes. No retroperitoneal or pelvic lymphadenopathy is identified. Status post cholecystectomy. No definite biliary tract dilatation is seen. Small to moderate umbilical hernia containing properitoneal fat only. Mild colonic diverticulosis without evidence of acute diverticulitis. The appendix appears unremarkable The spleen, pancreas, adrenal glands and kidneys demonstrate no discrete abnormality. There is no aortic aneurysm. Status post hysterectomy. The visualized osseous structures demonstrate no obvious CT evidence of acute pathology. IMPRESSION: No definite CT evidence of colitis. There is equivocal mild concentric wall thickening involving the terminal ileum versus representing artifactual thickening due to underdistention. Clinically indicated correlate with follow-up CT utilizing oral contrast. There is partial imaging of a left lower lobe infiltrate. A possible small cavitary focus is seen in the same region. Correlate with a dedicated chest CT exam. Interval development of diffuse hepatic steatosis is noted. The remainder of the exam demonstrates no definite interval change. Note is again made of stable mildly increased mesenteric density centrally in association with several stable mildly enlarged mesenteric lymph nodes. Correlate with one-year follow-up MRI/CT to document stability/ resolution. Status post cholecystectomy. Small to moderate umbilical hernia containing fat only. Mild colonic diverticulosis. Reported By: Emmanuel Painting MD 09/11/182028 LARRY YOO Technologist: Arian Mcwilliams Transcribed Date/Time: 09/11/182028 Squilgeer: Emmanuel Painting Printed Date/Time: By: Signed by: Emmanuel Painting Signed on : 11-Sep-2018 20:29) Problem List - Problems (1) Diarrhea Assessment/Plan: Based on her description I suspect that Elizabeth actually has constipation associated with diabetic neuropathy leading to paradoxical diarrhea. I will screen for various etiologies of diarrhea however. A probiotic will be started and stool analyzed for WBCs; I do not think the ileal thickening on CT is real. Discussed case with Dr Chatterjee Code(s): R19.7 - DIARRHEA, UNSPECIFIED Qualifiers: Diarrhea type: unspecified type Qualified Code(s): R19.7 - Diarrhea, unspecified (2) Diverticula of colon Code(s): K57.30 - DVRTCLOS OF LG INT W/O PERFORATION OR ABSCESS W/O BLEEDING (3) Colon polyp, hyperplastic Code(s): K63.5 - POLYP OF COLON Qualifiers: Colon location: unspecified part of colon Qualified Code(s): K63.5 - Polyp of colon (4) Incontinence of feces Code(s): R15.9 - FULL INCONTINENCE OF FECES Qualifiers: Fecal incontinence type: incomplete defecation Qualified Code(s): R15.0 - Incomplete defecation (5) Asthma Code(s): J45.909 - UNSPECIFIED ASTHMA, UNCOMPLICATED (6) Diabetes Code(s): E11.9 - TYPE 2 DIABETES MELLITUS WITHOUT COMPLICATIONS
[2018-09-12] MEDS: SODIUM CHLORIDE 1,000 ML IV SCH (17:56)
[2018-09-12] MEDS ORDERED: cefTRIAXone SODIUM 1 GM VIAL ONE (20:51)
[2018-09-12] MEDS ORDERED: DEXTROSE 5%-WATER - 50 ML IVPB ONE (20:51)
[2018-09-12] MEDS: SUMAtriptan SUCCINATE 25 MG TABLET PO PRN (21:00)
[2018-09-12] MEDS: CEFTRIAXONE 1 GM in DEXTROSE 5%-WATER - 50 ML IVPB SCH (21:02)
[2018-09-12] MEDS ORDERED: INSULIN (NOVOLOG) ASPART 100 UNITS/ML 10ML VIAL ONE (21:12)
[2018-09-12] MEDS: AZITHROMYCIN IVPB 500 MG/250 ML BAG IVPB SCH (21:54)
[2018-09-12] MEDS ORDERED: ROSUVASTATIN CA 10 MG TABLET (FP) PO SCH (22:00)
[2018-09-13] MEDS: PRAMIPEXOLE DIHYDROCHLORIDE 0.25 MG TABLET PO SCH ×3 (05:52→21:25)
[2018-09-13] MEDS: SODIUM CHLORIDE 1,000 ML IV SCH ×2 (05:52→20:00)
[2018-09-13] MEDS: INSULIN SLIDING SCALE (NOVOLOG) 1 VIAL SQ SCH ×4 (06:15→22:02)
[2018-09-13] MEDS ORDERED: PT OWN MED DRAWER 7, Y5N ONE ×4 (06:18→20:49)
[2018-09-13 08:10] LABS: BASO % 0.7 % (0-2.0); EOS % 0.8 % (0-4.5); HEMATOCRIT 38.3 % (32.4-45.2); HEMOGLOBIN 13.1 GM/dL (10.7-15.3); LYMPH % 27.1 % (8-40); MCH 29.8 pg (25.7-33.7); MCHC 34.4 g/dl (32.0-36.0); MEAN CELL VOLUME 86.6 fl (80-96); MEAN PLT VOLUME 9.5 fl (7.5-11.1); NEUT % 57.4 % (42.8-82.8); PLATELET COUNT 198 K/MM3 (134-434); RBC 4.42 M/mm3 (3.60-5.2); RDW 13.2 % (11.6-15.6); WHITE BLOOD COUNT 5.5 K/mm3 (4.0-10.0)
[2018-09-13 08:37] LABS: ALBUMIN 2.8 g/dl (3.4-5.0); ALK PHOS 95 U/L (45-117); ANION GAP 7 MMOL/L (8-16); BILIRUBIN,TOTAL 0.3 mg/dL (0.2-1); BLOOD UREA NITROGEN 9 mg/dL (7-18); CALCIUM 7.9 mg/dL (8.5-10.1); CHLORIDE 105 mmol/L (98-107); CO2 25 mmol/L (21-32); CREATININE 0.8 mg/dL (0.55-1.3); GLUCOSE,RANDOM 157 mg/dL (74-106); MAGNESIUM 2.1 mg/dL (1.8-2.4); POTASSIUM 4.2 mmol/L (3.5-5.1); SGOT/AST 28 U/L (15-37); SGPT/ALT 31 U/L (13-61); SODIUM 137 mmol/L (136-145); TOT PROT 6.2 g/dl (6.4-8.2)
[2018-09-13] MEDS: LACTOBACILLUS ACIDOPHILUS 1 TABLET PO SCH (09:28)
[2018-09-13] MEDS: PANTOPRAZOLE 40 MG TABLET (FP) PO SCH (09:28)
[2018-09-13] MEDS: TOPIRAMATE 25 MG TABLET (FP) PO SCH (09:28)
[2018-09-13] MEDS: MULTIVITAMINS THER W-MINERALS COMBO TABLET (FP) PO SCH (09:28)
[2018-09-13] MEDS: ASPIRIN COATED 81 MG TABLET.EC PO SCH (09:28)
[2018-09-13] MEDS: ENOXAPARIN NA (PORCINE) 40 MG/0.4 ML DISP.SYRIN SQ SCH (09:28)
--- NOTE | 2018-09-13 12:04 | PN ---
Progress Note (short form) - Note Progress Note: headaches better no nausea has pain in legs- left >right has fever + Vital Signs - 24 hr 09/11/18 09/11/18 09/11/18 17:26 19:10 22:00 Temperature 99.2 F 101.3 F H 99.0 F Pulse Rate 88 Pulse Rate [ 105 H 92 H Left Radial] Respiratory 18 20 20 Rate Blood Pressure 136/76 Blood Pressure 156/74 154/72 [Left Arm] O2 Sat by Pulse 99 98 98 Oximetry (%) 09/12/18 09/12/18 09/12/18 00:30 02:15 04:22 Temperature 100.2 F H 101.5 F H 98.9 F Pulse Rate 89 Pulse Rate [ 91 H 93 H Left Radial] Respiratory 19 18 20 Rate Blood Pressure 139/63 Blood Pressure 152/67 155/72 [Left Arm] O2 Sat by Pulse 100 97 98 Oximetry (%) 09/12/18 09/12/18 09/12/18 06:00 08:00 09:00 Temperature 99.2 F 99.5 F Pulse Rate 81 88 Pulse Rate [ Left Radial] Respiratory 16 Rate Blood Pressure 145/78 132/60 Blood Pressure [Left Arm] O2 Sat by Pulse 98 Oximetry (%) Laboratory Results - last 24 hr 09/11/18 09/11/18 09/11/18 17:49 17:49 17:49 WBC 10.9 H RBC 4.85 Hgb 14.2 Hct 41.8 MCV 86.2 MCH 29.4 MCHC 34.1 RDW 13.2 Plt Count 207 MPV 9.8 Absolute Neuts (auto) 9.1 H Neutrophils % 84.1 H Lymphocytes % 8.0 D Monocytes % 7.2 Eosinophils % 0.1 Basophils % 0.6 Nucleated RBC % 0 ESR PTT (Actin FS) 21.3 L VBG pH POC VBG pCO2 POC VBG pO2 Mixed VBG HCO3 Sodium 130 L Potassium 4.1 Chloride 93 L Carbon Dioxide 26 Anion Gap 11 BUN 15 Creatinine 0.8 Creat Clearance w eGFR > 60 POC Glucometer Random Glucose 176 H Hemoglobin A1c % Serum Osmolality Calcium 8.9 Phosphorus 2.8 Magnesium 1.7 L Total Bilirubin 0.4 AST 19 ALT 30 Alkaline Phosphatase 119 H Creatine Kinase 67 Troponin I < 0.02 C-Reactive Protein Total Protein 7.6 Albumin 3.4 Triglycerides Cholesterol Total LDL Cholesterol HDL Cholesterol Lipase 143 Urine Color Urine Appearance Urine pH Ur Specific [place] Urine Protein Urine Glucose (UA) Urine Ketones Urine Blood Urine Nitrite Urine Bilirubin Urine Urobilinogen Ur Leukocyte Esterase Acetone, Qual 09/11/18 09/11/18 09/11/18 17:49 17:49 19:29 WBC RBC Hgb Hct MCV MCH MCHC RDW Plt Count MPV Absolute Neuts (auto) Neutrophils % Lymphocytes % Monocytes % Eosinophils % Basophils % Nucleated RBC % ESR PTT (Actin FS) VBG pH 7.44 H POC VBG pCO2 39.7 POC VBG pO2 34.2 Mixed VBG HCO3 26.2 H Sodium Potassium Chloride Carbon Dioxide Anion Gap BUN Creatinine Creat Clearance w eGFR POC Glucometer Random Glucose Hemoglobin A1c % Serum Osmolality Calcium Phosphorus Magnesium Total Bilirubin AST ALT Alkaline Phosphatase Creatine Kinase Troponin I C-Reactive Protein Total Protein Albumin Triglycerides Cholesterol Total LDL Cholesterol HDL Cholesterol Lipase Cancelled Urine Color Urine Appearance Urine pH Ur Specific [place] Urine Protein Urine Glucose (UA) Urine Ketones Urine Blood Urine Nitrite Urine Bilirubin Urine Urobilinogen Ur Leukocyte Esterase Acetone, Qual Negative L 09/11/18 09/11/18 09/11/18 19:29 20:12 22:01 WBC RBC Hgb Hct MCV MCH MCHC RDW Plt Count MPV Absolute Neuts (auto) Neutrophils % Lymphocytes % Monocytes % Eosinophils % Basophils % Nucleated RBC % ESR PTT (Actin FS) VBG pH POC VBG pCO2 POC VBG pO2 Mixed VBG HCO3 Sodium Potassium Chloride Carbon Dioxide Anion Gap BUN Creatinine Creat Clearance w eGFR POC Glucometer [id number] Random Glucose Hemoglobin A1c % Serum Osmolality Calcium Phosphorus Cancelled Magnesium Cancelled Total Bilirubin AST ALT Alkaline Phosphatase Creatine Kinase Troponin I C-Reactive Protein Total Protein Albumin Triglycerides Cholesterol Total LDL Cholesterol HDL Cholesterol Lipase Urine Color Straw Urine Appearance Clear Urine pH 6.0 Ur Specific [place] 1.044 H Urine Protein Negative Urine Glucose (UA) Negative Urine Ketones Trace H Urine Blood Negative Urine Nitrite Negative Urine Bilirubin Negative Urine Urobilinogen Negative Ur Leukocyte Esterase Negative Acetone, Qual 09/12/18 09/12/18 09/12/18 03:02 03:02 03:02 WBC 9.2 RBC 4.42 Hgb 13.1 Hct 37.9 MCV 85.8 MCH 29.7 MCHC 34.6 RDW 13.4 Plt Count 191 MPV 9.9 Absolute Neuts (auto) 6.6 Neutrophils % 72.2 Lymphocytes % 16.0 D Monocytes % 10.9 H Eosinophils % 0.1 Basophils % 0.8 Nucleated RBC % 0 ESR PTT (Actin FS) VBG pH POC VBG pCO2 POC VBG pO2 Mixed VBG HCO3 Sodium 135 L Potassium 4.2 Chloride 101 Carbon Dioxide 26 Anion Gap 8 BUN 12 Creatinine 0.7 Creat Clearance w eGFR > 60 POC Glucometer Random Glucose 163 H Hemoglobin A1c % 8.5 H Serum Osmolality Calcium 8.2 L Phosphorus Magnesium 1.7 L Total Bilirubin 0.3 AST 13 L ALT 25 Alkaline Phosphatase 101 Creatine Kinase 67 Troponin I < 0.02 C-Reactive Protein Total Protein 6.5 Albumin 3.0 L Triglycerides 166 H Cholesterol 201 H Total LDL Cholesterol 114 H HDL Cholesterol 44 Lipase Urine Color Urine Appearance Urine pH Ur Specific [place] Urine Protein Urine Glucose (UA) Urine Ketones Urine Blood Urine Nitrite Urine Bilirubin Urine Urobilinogen Ur Leukocyte Esterase Acetone, Qual 09/12/18 09/12/18 09/12/18 03:02 03:02 05:49 WBC RBC Hgb Hct MCV MCH MCHC RDW Plt Count MPV Absolute Neuts (auto) Neutrophils % Lymphocytes % Monocytes % Eosinophils % Basophils % Nucleated RBC % ESR 38 H PTT (Actin FS) VBG pH POC VBG pCO2 POC VBG pO2 Mixed VBG HCO3 Sodium Potassium Chloride Carbon Dioxide Anion Gap BUN Creatinine Creat Clearance w eGFR POC Glucometer 138 Random Glucose Hemoglobin A1c % Serum Osmolality 290 Calcium Phosphorus Magnesium Total Bilirubin AST ALT Alkaline Phosphatase Creatine Kinase Troponin I C-Reactive Protein 6.6 H Total Protein Albumin Triglycerides Cholesterol Total LDL Cholesterol HDL Cholesterol Lipase Urine Color Urine Appearance Urine pH Ur Specific [place] Urine Protein Urine Glucose (UA) Urine Ketones Urine Blood Urine Nitrite Urine Bilirubin Urine Urobilinogen Ur Leukocyte Esterase Acetone, Qual 09/12/18 11:27 WBC RBC Hgb Hct MCV MCH MCHC RDW Plt Count MPV Absolute Neuts (auto) Neutrophils % Lymphocytes % Monocytes % Eosinophils % Basophils % Nucleated RBC % ESR PTT (Actin FS) VBG pH POC VBG pCO2 POC VBG pO2 Mixed VBG HCO3 Sodium Potassium Chloride Carbon Dioxide Anion Gap BUN Creatinine Creat Clearance w eGFR POC Glucometer 209 Random Glucose Hemoglobin A1c % Serum Osmolality Calcium Phosphorus Magnesium Total Bilirubin AST ALT Alkaline Phosphatase Creatine Kinase Troponin I C-Reactive Protein Total Protein Albumin Triglycerides Cholesterol Total LDL Cholesterol HDL Cholesterol Lipase Urine Color Urine Appearance Urine pH Ur Specific [place] Urine Protein Urine Glucose (UA) Urine Ketones Urine Blood Urine Nitrite Urine Bilirubin Urine Urobilinogen Ur Leukocyte Esterase Acetone, Qual S1S2 RRR Lungs decreased Abd- soft, NT, ND No edema PLAN change diet sono legs - r/o DVT IV fluids Stool studies IV antibiotics spoke with ID, Pulmonary and GI diabetic control Problem List - Problems (1) Diarrhea Code(s): R19.7 - DIARRHEA, UNSPECIFIED Qualifiers: Diarrhea type: unspecified type Qualified Code(s): R19.7 - Diarrhea, unspecified (2) Headache Code(s): R51 - HEADACHE Qualifiers: Headache type: unspecified Headache chronicity pattern: acute headache Intractability: not intractable Qualified Code(s): R51 - Headache (3) Nausea & vomiting Code(s): R11.2 - NAUSEA WITH VOMITING, UNSPECIFIED Qualifiers: Vomiting type: unspecified Vomiting Intractability: intractable Qualified Code(s): R11.2 - Nausea with vomiting, unspecified (4) PNA (pneumonia) Code(s): J18.9 - PNEUMONIA, UNSPECIFIED ORGANISM Qualifiers: Pneumonia type: due to unspecified organism Laterality: left Lung location: lower lobe of lung Qualified Code(s): J18.1 - Lobar pneumonia, unspecified organism (5) Diabetes Code(s): E11.9 - TYPE 2 DIABETES MELLITUS WITHOUT COMPLICATIONS
--- NOTE | 2018-09-13 12:17 | PN ---
Progress Note, Physician History of Present Illness: stable still with dirrhoea gi on case breathing good - Current Medication List Current Medications: Active Medications Acetaminophen (Tylenol -) 650 mg PO Q4H PRN PRN Reason: PAIN Last Admin: 09/12/18 06:30 Dose: 650 mg Acetaminophen/Butalbital/Caffeine (Fioricet -) 1 tablet PO Q4H PRN PRN Reason: HEADACHE Last Admin: 09/12/18 19:14 Dose: 1 tablet Aspirin (Ecotrin -) 81 mg PO DAILY [facility] Last Admin: 09/13/18 09:28 Dose: 81 mg Enoxaparin Sodium (Lovenox -) 40 mg SQ DAILY [facility] Last Admin: 09/13/18 09:28 Dose: 40 mg Azithromycin (Zithromax 500mg Ivpb (Pre-Docked)) 500 mg in 250 mls @ 250 mls/ hr IVPB HS [facility] Last Admin: 09/12/18 21:54 Dose: 250 mls/hr Ceftriaxone Sodium 1 gm/ (Dextrose) 50 mls @ 100 mls/hr IVPB HS [facility] Last Admin: 09/12/18 21:02 Dose: 100 mls/hr Sodium Chloride (Normal Saline -) 1,000 mls @ 75 mls/hr IV ASDIR [facility] Last Admin: 09/13/18 05:52 Dose: 75 mls/hr Insulin Aspart (Novolog Vial Sliding Scale -) 1 vial SQ ACHS [facility]; Protocol Last Admin: 09/13/18 11:34 Dose: 4 units Lactobacillus Acidophilus (Bacid -) 1 tab PO DAILY [facility] Last Admin: 09/13/18 09:28 Dose: 1 tab Multivitamins/Minerals (Theragran-M) 1 each PO DAILY [facility] Last Admin: 09/13/18 09:28 Dose: 1 each Ondansetron HCl (Zofran Injection) 4 mg IVPUSH Q6H PRN PRN Reason: NAUSEA Last Admin: 09/12/18 13:51 Dose: 4 mg Pantoprazole Sodium (Protonix -) 40 mg PO DAILY [facility] Last Admin: 09/13/18 09:28 Dose: 40 mg Pramipexole Dihydrochloride (Mirapex -) 0.25 mg PO TID [facility] Last Admin: 09/13/18 05:52 Dose: 0.25 mg Sumatriptan Succinate (Imitrex -) 25 mg PO DAILY PRN PRN Reason: HEADACHE Last Admin: 09/12/18 21:00 Dose: 25 mg Topiramate (Topamax -) 50 mg PO DAILY [facility] Last Admin: 09/13/18 09:28 Dose: 50 mg - Objective Vital Signs: Vital Signs Temperature 98.0 F 09/13/18 07:59 Pulse Rate 76 09/13/18 07:59 Respiratory Rate 16 09/13/18 07:59 Blood Pressure 135/71 09/13/18 07:59 O2 Sat by Pulse Oximetry (%) 98 09/13/18 09:00 Constitutional: Yes: No Distress, Calm, Obese Cardiovascular: Yes: Regular Rate and Rhythm Gastrointestinal: Yes: Normal Bowel Sounds, Soft Musculoskeletal: Yes: WNL Extremities: Yes: WNL Neurological: Yes: Alert, Oriented Psychiatric: Yes: Alert, Oriented Labs: CBC, BMP 09/13/18 07:30 09/13/18 07:30 Assessment/Plan 1 r/o malignancy of the lung 2 dirrhoea 3 weight loss 4 fever 5 dm\ 6 pna plan continue abx awaiting for gi to work up rest as per the team patient improving
--- NOTE | 2018-09-13 13:44 | PN ---
Progress Note (short form) - Note Progress Note: PULMONARY APPEARS MUCH IMPROVED NO FURTHER NAUSEA/VOMITTING OR HEADACHE DIARRHEA PERSISTS VSS/AFEBRILE ANICTERIC LEFT BASE DIMINISHED BREATH SOUNDS S1S2 BS+ NO EDEMA LOWER EXT VENOUS DOPPLERS NEGATIVE FOR DVT LABS/MEDS/NOTES REVIEWED CT FINDINGS LIKELY C/W COMMUNITY ACQUIRED PNEUMONIA CHRONIC DIARRHEA/GI ON CASE MIGRAINE HEADACHES RESOLVED DEPRESSIVE DISORDER RLS IV ANTIBIOTICS WILL NEED F/U CT 4-6 WEEKS AN OUTPATIENT TO DOCUMENT CLEARING O2 SUPPLEMENTATION PRN BRONCHODILATORS TO FACILITATE MUCOUS CLEARANCE GI WORKUP/RX CONTINUES C.DIFF STOOL NEGATIVE/URINE ANTIGENS ARE NEGATIVE Meghna FIERRO MD Problem List - Problems (1) Diarrhea Code(s): R19.7 - DIARRHEA, UNSPECIFIED Qualifiers: Diarrhea type: unspecified type Qualified Code(s): R19.7 - Diarrhea, unspecified (2) Headache Code(s): R51 - HEADACHE Qualifiers: Headache type: unspecified Headache chronicity pattern: acute headache Intractability: not intractable Qualified Code(s): R51 - Headache (3) Nausea & vomiting Code(s): R11.2 - NAUSEA WITH VOMITING, UNSPECIFIED Qualifiers: Vomiting type: unspecified Vomiting Intractability: intractable Qualified Code(s): R11.2 - Nausea with vomiting, unspecified (4) PNA (pneumonia) Code(s): J18.9 - PNEUMONIA, UNSPECIFIED ORGANISM Qualifiers: Pneumonia type: due to unspecified organism Laterality: left Lung location: lower lobe of lung Qualified Code(s): J18.1 - Lobar pneumonia, unspecified organism (5) Asthma Code(s): J45.909 - UNSPECIFIED ASTHMA, UNCOMPLICATED
[2018-09-13] MEDS ORDERED: MAGNESIUM CITRATE 300 ML BOTTLE PO ONE (14:48)
--- NOTE | 2018-09-13 14:50 | PN ---
GI Progress Note Subjective: GI NOte: FUA reveals retained stool suggesting paradoxical diarrhea. - Objective Vital Signs: Vital Signs Temperature 98.6 F 09/13/18 14:42 Pulse Rate 70 09/13/18 14:42 Respiratory Rate 16 09/13/18 14:42 Blood Pressure 139/69 09/13/18 14:42 O2 Sat by Pulse Oximetry (%) 98 09/13/18 09:00 Constitutional: Calm ...Auscultate: Yes: Normoactive Bowel Sounds ...Palpate: Yes: Soft, Other (nontender) Labs: CBC, BMP 09/13/18 07:30 09/13/18 07:30 Problem List - Problems (1) Diarrhea Assessment/Plan: Suspect paradoxical diarrhea. I will give a course of Citroma tonight Code(s): R19.7 - DIARRHEA, UNSPECIFIED Qualifiers: Diarrhea type: unspecified type Qualified Code(s): R19.7 - Diarrhea, unspecified (2) Diverticula of colon Code(s): K57.30 - DVRTCLOS OF LG INT W/O PERFORATION OR ABSCESS W/O BLEEDING (3) Colon polyp, hyperplastic Code(s): K63.5 - POLYP OF COLON Qualifiers: Colon location: unspecified part of colon Qualified Code(s): K63.5 - Polyp of colon (4) Incontinence of feces Code(s): R15.9 - FULL INCONTINENCE OF FECES Qualifiers: Fecal incontinence type: incomplete defecation Qualified Code(s): R15.0 - Incomplete defecation (5) Asthma Code(s): J45.909 - UNSPECIFIED ASTHMA, UNCOMPLICATED (6) Diabetes Code(s): E11.9 - TYPE 2 DIABETES MELLITUS WITHOUT COMPLICATIONS
[2018-09-13] MEDS: ALBUTEROL SO4 2.5/IPRATROPIUM 0.5 INH SOL 3 ML VIAL.NEB. NEB SCH ×2 (15:00→20:37)
[2018-09-13] MEDS ORDERED: PNEUMOC 13-VAL CONJ-DIP CRM/PF 0.5 ML DISP.SYRIN IM ONE (18:55)
[2018-09-13] MEDS ORDERED: FLU VACCINE QUAD 60 MCG/0.5 ML (MDV 18-19) IM ONE (20:00)
[2018-09-13] MEDS ORDERED: PNEUMOCOCCAL 23 VACCINE 0.5 ML VIAL IM ONE (20:00)
[2018-09-13] MEDS ORDERED: cefTRIAXone SODIUM 1 GM VIAL ONE (20:49)
[2018-09-13] MEDS ORDERED: DEXTROSE 5%-WATER - 50 ML IVPB ONE (20:50)
[2018-09-13] MEDS: CEFTRIAXONE 1 GM in DEXTROSE 5%-WATER - 50 ML IVPB SCH (21:12)
[2018-09-13] MEDS ORDERED: INSULIN (NOVOLOG) ASPART 100 UNITS/ML 10ML VIAL ONE (21:45)
[2018-09-13] MEDS: AZITHROMYCIN IVPB 500 MG/250 ML BAG IVPB SCH (22:33)
[2018-09-14] MEDS: ACETAMINOPHEN/CAFFEINE/BUTALBITAL 1 TAB PO PRN ×2 (01:32→13:55)
[2018-09-14] MEDS ORDERED: PT OWN MED DRAWER 7, Y5N ONE ×2 (04:54→20:48)
[2018-09-14] MEDS: PRAMIPEXOLE DIHYDROCHLORIDE 0.25 MG TABLET PO SCH ×3 (06:07→21:24)
[2018-09-14] MEDS: INSULIN SLIDING SCALE (NOVOLOG) 1 VIAL SQ SCH ×4 (06:26→21:25)
[2018-09-14] MEDS ORDERED: INSULIN (NOVOLOG) ASPART 100 UNITS/ML 10ML VIAL ONE ×2 (06:28→21:21)
[2018-09-14] MEDS: ALBUTEROL SO4 2.5/IPRATROPIUM 0.5 INH SOL 3 ML VIAL.NEB. NEB SCH ×3 (07:48→20:32)
[2018-09-14] MEDS: ACETAMINOPHEN 325 MG TABLET (FP) PO PRN ×3 (07:51→23:59)
--- NOTE | 2018-09-14 10:44 | PN ---
Progress Note (short form) - Note Progress Note: PULMONARY +nonproductive cough. No fevers recorded. Vital Signs Period Temp Pulse Resp BP Sys/Adkins Pulse Ox Last 24 Hr 98.5 F-98.7 F 68-72 16-20 135-140/67-69 98 Gen: NAD at rest Heart: RRR Lung: decreased breath sounds at the bases Abd: soft, nontender Ext: no edema CBC, BMP 09/13/18 07:30 09/13/18 07:30 Active Medications Acetaminophen (Tylenol -) 650 mg PO Q4H PRN PRN Reason: PAIN Last Admin: 09/14/18 07:51 Dose: 650 mg Acetaminophen/Butalbital/Caffeine (Fioricet -) 1 tablet PO Q4H PRN PRN Reason: HEADACHE Last Admin: 09/14/18 01:32 Dose: 1 tablet Albuterol/Ipratropium (Duoneb -) 1 amp NEB RTID [facility] Last Admin: 09/14/18 07:48 Dose: 1 amp Aspirin (Ecotrin -) 81 mg PO DAILY [facility] Last Admin: 09/13/18 09:28 Dose: 81 mg Enoxaparin Sodium (Lovenox -) 40 mg SQ DAILY [facility] Last Admin: 09/13/18 09:28 Dose: 40 mg Azithromycin (Zithromax 500mg Ivpb (Pre-Docked)) 500 mg in 250 mls @ 250 mls/ hr IVPB HS [facility] Last Admin: 09/13/18 22:33 Dose: 250 mls/hr Ceftriaxone Sodium 1 gm/ (Dextrose) 50 mls @ 100 mls/hr IVPB HS [facility] Last Admin: 09/13/18 21:12 Dose: 100 mls/hr Sodium Chloride (Normal Saline -) 1,000 mls @ 75 mls/hr IV ASDIR [facility] Last Admin: 09/13/18 20:00 Dose: 75 mls/hr Insulin Aspart (Novolog Vial Sliding Scale -) 1 vial SQ ACHS [facility]; Protocol Last Admin: 09/14/18 06:26 Dose: 2 units Lactobacillus Acidophilus (Bacid -) 1 tab PO DAILY [facility] Last Admin: 09/13/18 09:28 Dose: 1 tab Multivitamins/Minerals (Theragran-M) 1 each PO DAILY [facility] Last Admin: 09/13/18 09:28 Dose: 1 each Ondansetron HCl (Zofran Injection) 4 mg IVPUSH Q6H PRN PRN Reason: NAUSEA Last Admin: 09/12/18 13:51 Dose: 4 mg Pantoprazole Sodium (Protonix -) 40 mg PO DAILY [facility] Last Admin: 09/13/18 09:28 Dose: 40 mg Pramipexole Dihydrochloride (Mirapex -) 0.25 mg PO TID [facility] Last Admin: 09/14/18 06:07 Dose: 0.25 mg Sumatriptan Succinate (Imitrex -) 25 mg PO DAILY PRN PRN Reason: HEADACHE Last Admin: 09/12/18 21:00 Dose: 25 mg Topiramate (Topamax -) 50 mg PO DAILY [facility] Last Admin: 09/13/18 09:28 Dose: 50 mg A/P Pneumonia r/o Lung Mass Chronic Diarrhea Depression RLS - continue antibiotics - f/u cultures - O2 to keep SpO2 >90% - will need short term f/u of CT chest in 4-6 weeks to ensure resolution of infiltrate - DVT prophylaxis
[2018-09-14] MEDS: ENOXAPARIN NA (PORCINE) 40 MG/0.4 ML DISP.SYRIN SQ SCH (11:31)
[2018-09-14] MEDS: TOPIRAMATE 25 MG TABLET (FP) PO SCH (11:32)
[2018-09-14] MEDS: PANTOPRAZOLE 40 MG TABLET (FP) PO SCH (11:32)
[2018-09-14] MEDS: ASPIRIN COATED 81 MG TABLET.EC PO SCH (11:32)
[2018-09-14] MEDS: LACTOBACILLUS ACIDOPHILUS 1 TABLET PO SCH (11:33)
[2018-09-14] MEDS: MULTIVITAMINS THER W-MINERALS COMBO TABLET (FP) PO SCH (11:34)
--- NOTE | 2018-09-14 12:20 | ECHO ---
Name: CLEMENT CORRALES Exam:Adult Echocardiogram Study Date: 09/14/2018 10:52 AM Age: 63 yrs Reason For Study: SYNCOPE Height: 67 in Weight: 182 lb BSA: 1.9 m2 MMode/2D Measurements & Calculations IVSd: 1.00 cm Ao root diam: 2.6 cm LVIDd: 5.2 cm LA dimension: 3.9 cm LVIDs: 3.8 cm LVPWd: 0.95 cm EDV(Teich): 127.9 ml ESV(Teich): 63.7 ml Doppler Measurements & Calculations MV E max antoni: 79.0 cm/sec Med Peak E' Antoni: 7.0 cm/sec MV A max antoni: 90.3 cm/sec Med E/e': 11.3 MV E/A: 0.87 Lat Peak E' Antoni: 8.9 cm/sec MV dec time: 0.16 sec Lat E/e': 8.9 Procedure A complete two-dimensional transthoracic echocardiogram was performed (2D, M-mode, Doppler and color flow Doppler). Left Ventricle The left ventricle is normal in size. Left ventricular systolic function is normal. Ejection Fraction = 55- 60%. No regional wall motion abnormalities noted. Right Ventricle The right ventricle is normal size. The right ventricular systolic function is normal. Atria The left atrial size is normal. Right atrial size is normal. Mitral Valve There is mild mitral annular calcification. There is mild mitral regurgitation. Tricuspid Valve The tricuspid valve is normal in structure and function. No tricuspid regurgitation. Aortic Valve The aortic valve is normal in structure and function. No aortic regurgitation is present. Pulmonic Valve The pulmonic valve is not well visualized. Great Vessels The aortic root is normal size. Pericardium/Pleura There is no pericardial effusion. Interpretation Summary The left ventricle is normal in size. Left ventricular systolic function is normal. No regional wall motion abnormalities noted. Ejection Fraction = 55-60%. The right ventricular systolic function is normal. The left atrial size is normal. Right atrial size is normal. There is mild mitral regurgitation. There is mild mitral annular calcification. There is no pericardial effusion. Previous study is not available for comparison Lance Ferrara MD 09/14/2018 12:20 PM
--- NOTE | 2018-09-14 12:27 | PN ---
Progress Note (short form) - Note Progress Note: Patient seen and examined. Chart reviewed Eating lunch Anxiety present Denies abdominal pain Still complains of diarrhea Dry cough present Vital Signs Temp 98.5 F 09/14/18 05:00 Pulse 72 09/14/18 05:00 Resp 20 09/14/18 05:00 BP 140/67 09/14/18 05:00 Pulse Ox 98 09/13/18 20:36 Intake & Output 09/13/18 09/14/18 09/14/18 23:59 11:59 23:59 Intake Total 3100 900 Balance 3100 900 Weight 205 lb 9.6 oz Intake: IV 1600 600 Normal Saline - 1,000 ml 1600 600 @ 75 mls/hr IV ASDIR [facility] Rx#:[id number] IVPB 300 300 Oral 1200 Other: Voiding Method Bedpan # Unmeasured Voids Void 4 Bowel Movement Yes # Bowel Movements 3 Weight Measurement Method [email or web address] Active Medications Acetaminophen (Tylenol -) 650 mg PO Q4H PRN PRN Reason: PAIN Last Admin: 09/14/18 07:51 Dose: 650 mg Acetaminophen/Butalbital/Caffeine (Fioricet -) 1 tablet PO Q4H PRN PRN Reason: HEADACHE Last Admin: 09/14/18 01:32 Dose: 1 tablet Albuterol/Ipratropium (Duoneb -) 1 amp NEB RTID [facility] Last Admin: 09/14/18 07:48 Dose: 1 amp Aspirin (Ecotrin -) 81 mg PO DAILY [facility] Last Admin: 09/14/18 11:32 Dose: 81 mg Enoxaparin Sodium (Lovenox -) 40 mg SQ DAILY [facility] Last Admin: 09/14/18 11:31 Dose: 40 mg Azithromycin (Zithromax 500mg Ivpb (Pre-Docked)) 500 mg in 250 mls @ 250 mls/ hr IVPB [facility] Last Admin: 09/13/18 22:33 Dose: 250 mls/hr Ceftriaxone Sodium 1 gm/ (Dextrose) 50 mls @ 100 mls/hr IVPB HS [facility] Last Admin: 09/13/18 21:12 Dose: 100 mls/hr Sodium Chloride (Normal Saline -) 1,000 mls @ 75 mls/hr IV ASDIR [facility] Last Admin: 09/13/18 20:00 Dose: 75 mls/hr Insulin Aspart (Novolog Vial Sliding Scale -) 1 vial SQ ACHS [facility]; Protocol Last Admin: 09/14/18 11:00 Dose: 4 units Lactobacillus Acidophilus (Bacid -) 1 tab PO DAILY [facility] Last Admin: 09/14/18 11:33 Dose: 1 tab Multivitamins/Minerals (Theragran-M) 1 each PO DAILY [facility] Last Admin: 09/14/18 11:34 Dose: 1 each Ondansetron HCl (Zofran Injection) 4 mg IVPUSH Q6H PRN PRN Reason: NAUSEA Last Admin: 09/12/18 13:51 Dose: 4 mg Pantoprazole Sodium (Protonix -) 40 mg PO DAILY [facility] Last Admin: 09/14/18 11:32 Dose: 40 mg Pramipexole Dihydrochloride (Mirapex -) 0.25 mg PO TID [facility] Last Admin: 09/14/18 06:07 Dose: 0.25 mg Sumatriptan Succinate (Imitrex -) 25 mg PO DAILY PRN PRN Reason: HEADACHE Last Admin: 09/12/18 21:00 Dose: 25 mg Topiramate (Topamax -) 50 mg PO DAILY [facility] Last Admin: 09/14/18 11:32 Dose: 50 mg CBC, BMP 09/13/18 07:30 09/13/18 07:30 Microbiology 09/12/18 13:40 Legionella Antigen - Final Urine - Urine Clean Catch Streptococcus pneumoniae Antigen (M - Final physical exam conscious cooperative alert and awake Obese Neck--supple Heart sounds--regular lungs--Scattered rhonchi Abdomen--soft/obese Extremities--no edema neuro-Alert and awake psych--Anxiety present A/P paradoxical diarrhea Possible pneumonia Cough Mood disorder continue present care Discussed with patient in detail GI following Antibiotics Discontinue fluids monitor lites We will follow
--- NOTE | 2018-09-14 12:49 | PN ---
Progress Note, Physician History of Present Illness: patient stable still having dirrhoea gi on case no other complaint - Current Medication List Current Medications: Active Medications Acetaminophen (Tylenol -) 650 mg PO Q4H PRN PRN Reason: PAIN Last Admin: 09/14/18 07:51 Dose: 650 mg Acetaminophen/Butalbital/Caffeine (Fioricet -) 1 tablet PO Q4H PRN PRN Reason: HEADACHE Last Admin: 09/14/18 01:32 Dose: 1 tablet Albuterol/Ipratropium (Duoneb -) 1 amp NEB RTID [facility] Last Admin: 09/14/18 07:48 Dose: 1 amp Aspirin (Ecotrin -) 81 mg PO DAILY [facility] Last Admin: 09/14/18 11:32 Dose: 81 mg Enoxaparin Sodium (Lovenox -) 40 mg SQ DAILY [facility] Last Admin: 09/14/18 11:31 Dose: 40 mg Azithromycin (Zithromax 500mg Ivpb (Pre-Docked)) 500 mg in 250 mls @ 250 mls/ hr IVPB HS [facility] Last Admin: 09/13/18 22:33 Dose: 250 mls/hr Ceftriaxone Sodium 1 gm/ (Dextrose) 50 mls @ 100 mls/hr IVPB HS [facility] Last Admin: 09/13/18 21:12 Dose: 100 mls/hr Sodium Chloride (Normal Saline -) 1,000 mls @ 75 mls/hr IV ASDIR [facility] Last Admin: 09/13/18 20:00 Dose: 75 mls/hr Insulin Aspart (Novolog Vial Sliding Scale -) 1 vial SQ ACHS [facility]; Protocol Last Admin: 09/14/18 11:00 Dose: 4 units Lactobacillus Acidophilus (Bacid -) 1 tab PO DAILY [facility] Last Admin: 09/14/18 11:33 Dose: 1 tab Multivitamins/Minerals (Theragran-M) 1 each PO DAILY [facility] Last Admin: 09/14/18 11:34 Dose: 1 each Ondansetron HCl (Zofran Injection) 4 mg IVPUSH Q6H PRN PRN Reason: NAUSEA Last Admin: 09/12/18 13:51 Dose: 4 mg Pantoprazole Sodium (Protonix -) 40 mg PO DAILY [facility] Last Admin: 09/14/18 11:32 Dose: 40 mg Pramipexole Dihydrochloride (Mirapex -) 0.25 mg PO TID [facility] Last Admin: 09/14/18 06:07 Dose: 0.25 mg Sumatriptan Succinate (Imitrex -) 25 mg PO DAILY PRN PRN Reason: HEADACHE Last Admin: 09/12/18 21:00 Dose: 25 mg Topiramate (Topamax -) 50 mg PO DAILY [facility] Last Admin: 09/14/18 11:32 Dose: 50 mg - Objective Vital Signs: Vital Signs Temperature 98.5 F 09/14/18 05:00 Pulse Rate 72 09/14/18 05:00 Respiratory Rate 20 09/14/18 05:00 Blood Pressure 140/67 09/14/18 05:00 O2 Sat by Pulse Oximetry (%) 98 09/13/18 20:36 Constitutional: Yes: No Distress, Calm Cardiovascular: Yes: Regular Rate and Rhythm Respiratory: Yes: Regular, CTA Bilaterally Gastrointestinal: Yes: Normal Bowel Sounds, Soft Musculoskeletal: Yes: WNL Extremities: Yes: WNL Neurological: Yes: Alert, Oriented Psychiatric: Yes: Alert, Oriented Labs: CBC, BMP 09/13/18 07:30 09/13/18 07:30 Assessment/Plan 1 r/o malignancy of the lung 2 dirrhoea 3 weight loss 4 fever 5 dm\ 6 pna plan continue to monitor await for final results continue abx for now rest as per the team
[2018-09-14] MEDS: SODIUM CHLORIDE 1,000 ML IV SCH (15:30)
--- NOTE | 2018-09-14 20:26 | PN ---
GI Progress Note Subjective: GI NOte: Despite Citroma Elizabeth continues to have diarrheal BMs only after she eats. She has no diarrhea between meals or at night. This again suggests paradoxical diarrhea. She tels me that her diarrhea did not respond to Imodium. Her C diff is negatve and stool cultures are pending. Stool for WBCs has not returned.I have proposed a thorough bowel cleansing with Golytely tomorrow to see whether this resolves the diarrhea. She is agreeable - Objective Vital Signs: Vital Signs Temperature 98.6 F 09/14/18 19:00 Pulse Rate 86 09/14/18 19:00 Respiratory Rate 20 09/14/18 19:00 Blood Pressure 148/76 09/14/18 19:00 O2 Sat by Pulse Oximetry (%) 98 09/13/18 20:36 Constitutional: No Distress ...Auscultate: Yes: Hypoactive Bowel Sounds ...Palpate: Yes: Soft, Other (nontender) Labs: CBC, BMP 09/13/18 07:30 09/13/18 07:30 Problem List - Problems (1) Diarrhea Assessment/Plan: Continue to suspect paradoxical diarrhea. I will give a course of Golytely tomorrow and screen stools for fat and WBCs. Code(s): R19.7 - DIARRHEA, UNSPECIFIED Qualifiers: Diarrhea type: unspecified type Qualified Code(s): R19.7 - Diarrhea, unspecified (2) Diverticula of colon Code(s): K57.30 - DVRTCLOS OF LG INT W/O PERFORATION OR ABSCESS W/O BLEEDING (3) Colon polyp, hyperplastic Code(s): K63.5 - POLYP OF COLON Qualifiers: Colon location: unspecified part of colon Qualified Code(s): K63.5 - Polyp of colon (4) Incontinence of feces Code(s): R15.9 - FULL INCONTINENCE OF FECES Qualifiers: Fecal incontinence type: incomplete defecation Qualified Code(s): R15.0 - Incomplete defecation (5) Asthma Code(s): J45.909 - UNSPECIFIED ASTHMA, UNCOMPLICATED (6) Diabetes Code(s): E11.9 - TYPE 2 DIABETES MELLITUS WITHOUT COMPLICATIONS
[2018-09-14] MEDS ORDERED: cefTRIAXone SODIUM 1 GM VIAL ONE (20:48)
[2018-09-14] MEDS ORDERED: DEXTROSE 5%-WATER - 50 ML IVPB ONE (20:48)
[2018-09-14] MEDS: CEFTRIAXONE 1 GM in DEXTROSE 5%-WATER - 50 ML IVPB SCH (21:24)
[2018-09-14] MEDS: AZITHROMYCIN IVPB 500 MG/250 ML BAG IVPB SCH (22:40)
[2018-09-15] MEDS: SODIUM CHLORIDE 1,000 ML IV SCH ×2 (02:45→17:31)
[2018-09-15] MEDS: PRAMIPEXOLE DIHYDROCHLORIDE 0.25 MG TABLET PO SCH ×3 (05:54→21:20)
[2018-09-15] MEDS ORDERED: PT OWN MED DRAWER 7, Y5N ONE ×3 (06:24→21:09)
[2018-09-15] MEDS: INSULIN SLIDING SCALE (NOVOLOG) 1 VIAL SQ SCH ×4 (06:32→21:20)
[2018-09-15] MEDS: ALBUTEROL SO4 2.5/IPRATROPIUM 0.5 INH SOL 3 ML VIAL.NEB. NEB SCH ×3 (08:10→20:00)
[2018-09-15] MEDS ORDERED: PEG3350/SOD SULF,BICARB,CL/KCL 4,000 ML SOLN.RECON PO ONE (09:00)
[2018-09-15] MEDS: ASPIRIN COATED 81 MG TABLET.EC PO SCH (10:00)
[2018-09-15] MEDS: ENOXAPARIN NA (PORCINE) 40 MG/0.4 ML DISP.SYRIN SQ SCH (10:01)
[2018-09-15] MEDS: MULTIVITAMINS THER W-MINERALS COMBO TABLET (FP) PO SCH (10:01)
[2018-09-15] MEDS: TOPIRAMATE 25 MG TABLET (FP) PO SCH (10:01)
[2018-09-15] MEDS: PSYLLIUM 5.85 GM PACKET PO SCH (10:01)
[2018-09-15] MEDS: LACTOBACILLUS ACIDOPHILUS 1 TABLET PO SCH (10:01)
[2018-09-15] MEDS: PANTOPRAZOLE 40 MG TABLET (FP) PO SCH (10:01)
--- NOTE | 2018-09-15 10:15 | PN ---
Progress Note (short form) - Note Progress Note: PULMONARY +nonproductive cough. No fevers recorded. Vital Signs Period Temp Pulse Resp BP Sys/Adkins Pulse Ox Last 24 Hr 98.6 F-99.6 F 78-86 20-20 144-150/61-79 98 Gen: NAD at rest Heart: RRR Lung: decreased breath sounds at the bases Abd: soft, nontender Ext: no edema CBC, BMP 09/13/18 07:30 09/13/18 07:30 Active Medications Acetaminophen (Tylenol -) 650 mg PO Q4H PRN PRN Reason: PAIN Last Admin: 09/14/18 23:59 Dose: 650 mg Acetaminophen/Butalbital/Caffeine (Fioricet -) 1 tablet PO Q4H PRN PRN Reason: HEADACHE Last Admin: 09/14/18 13:55 Dose: 1 tablet Albuterol/Ipratropium (Duoneb -) 1 amp NEB RTID [facility] Last Admin: 09/14/18 20:32 Dose: 1 amp Aspirin (Ecotrin -) 81 mg PO DAILY [facility] Last Admin: 09/15/18 10:00 Dose: 81 mg Enoxaparin Sodium (Lovenox -) 40 mg SQ DAILY [facility] Last Admin: 09/15/18 10:01 Dose: 40 mg Azithromycin (Zithromax 500mg Ivpb (Pre-Docked)) 500 mg in 250 mls @ 250 mls/ hr IVPB HS [facility] Last Admin: 09/14/18 22:40 Dose: 250 mls/hr Ceftriaxone Sodium 1 gm/ (Dextrose) 50 mls @ 100 mls/hr IVPB HS [facility] Last Admin: 09/14/18 21:24 Dose: 100 mls/hr Sodium Chloride (Normal Saline -) 1,000 mls @ 75 mls/hr IV ASDIR [facility] Last Admin: 09/15/18 02:45 Dose: 75 mls/hr Insulin Aspart (Novolog Vial Sliding Scale -) 1 vial SQ ACHS [facility]; Protocol Last Admin: 09/15/18 06:32 Dose: 2 units Lactobacillus Acidophilus (Bacid -) 1 tab PO DAILY [facility] Last Admin: 09/15/18 10:01 Dose: 1 tab Multivitamins/Minerals (Theragran-M) 1 each PO DAILY [facility] Last Admin: 09/15/18 10:01 Dose: 1 each Ondansetron HCl (Zofran Injection) 4 mg IVPUSH Q6H PRN PRN Reason: NAUSEA Last Admin: 09/12/18 13:51 Dose: 4 mg Pantoprazole Sodium (Protonix -) 40 mg PO DAILY [facility] Last Admin: 09/15/18 10:01 Dose: 40 mg Pramipexole Dihydrochloride (Mirapex -) 0.25 mg PO TID [facility] Last Admin: 09/15/18 05:54 Dose: 0.25 mg Psyllium Hydrophilic Mucilloid (Metamucil (Sugar-Free) -) 5.85 gm PO DAILY [facility] Last Admin: 09/15/18 10:01 Dose: Not Given Sumatriptan Succinate (Imitrex -) 25 mg PO DAILY PRN PRN Reason: HEADACHE Last Admin: 09/12/18 21:00 Dose: 25 mg Topiramate (Topamax -) 50 mg PO DAILY [facility] Last Admin: 09/15/18 10:01 Dose: 50 mg A/P Pneumonia r/o Lung Mass Chronic Diarrhea Depression RLS - complete antibiotics - f/u cultures - O2 to keep SpO2 >90% - will need short term f/u of CT chest in 4-6 weeks to ensure resolution of infiltrate - DVT prophylaxis
[2018-09-15] MEDS ORDERED: INSULIN (NOVOLOG) ASPART 100 UNITS/ML 10ML VIAL ONE (11:56)
--- NOTE | 2018-09-15 12:03 | PN ---
Progress Note, Physician History of Present Illness: still continues to ahve dirrhoea gi on case otherwise comfortable - Current Medication List Current Medications: Active Medications Acetaminophen (Tylenol -) 650 mg PO Q4H PRN PRN Reason: PAIN Last Admin: 09/14/18 23:59 Dose: 650 mg Acetaminophen/Butalbital/Caffeine (Fioricet -) 1 tablet PO Q4H PRN PRN Reason: HEADACHE Last Admin: 09/14/18 13:55 Dose: 1 tablet Albuterol/Ipratropium (Duoneb -) 1 amp NEB RTID [facility] Last Admin: 09/14/18 20:32 Dose: 1 amp Aspirin (Ecotrin -) 81 mg PO DAILY [facility] Last Admin: 09/15/18 10:00 Dose: 81 mg Enoxaparin Sodium (Lovenox -) 40 mg SQ DAILY [facility] Last Admin: 09/15/18 10:01 Dose: 40 mg Azithromycin (Zithromax 500mg Ivpb (Pre-Docked)) 500 mg in 250 mls @ 250 mls/ hr IVPB HS [facility] Last Admin: 09/14/18 22:40 Dose: 250 mls/hr Ceftriaxone Sodium 1 gm/ (Dextrose) 50 mls @ 100 mls/hr IVPB HS [facility] Last Admin: 09/14/18 21:24 Dose: 100 mls/hr Sodium Chloride (Normal Saline -) 1,000 mls @ 75 mls/hr IV ASDIR [facility] Last Admin: 09/15/18 02:45 Dose: 75 mls/hr Insulin Aspart (Novolog Vial Sliding Scale -) 1 vial SQ ACHS [facility]; Protocol Last Admin: 09/15/18 06:32 Dose: 2 units Lactobacillus Acidophilus (Bacid -) 1 tab PO DAILY [facility] Last Admin: 09/15/18 10:01 Dose: 1 tab Multivitamins/Minerals (Theragran-M) 1 each PO DAILY [facility] Last Admin: 09/15/18 10:01 Dose: 1 each Ondansetron HCl (Zofran Injection) 4 mg IVPUSH Q6H PRN PRN Reason: NAUSEA Last Admin: 09/12/18 13:51 Dose: 4 mg Pantoprazole Sodium (Protonix -) 40 mg PO DAILY [facility] Last Admin: 09/15/18 10:01 Dose: 40 mg Pramipexole Dihydrochloride (Mirapex -) 0.25 mg PO TID [facility] Last Admin: 09/15/18 05:54 Dose: 0.25 mg Psyllium Hydrophilic Mucilloid (Metamucil (Sugar-Free) -) 5.85 gm PO DAILY [facility] Last Admin: 09/15/18 10:01 Dose: Not Given Sumatriptan Succinate (Imitrex -) 25 mg PO DAILY PRN PRN Reason: HEADACHE Last Admin: 09/12/18 21:00 Dose: 25 mg Topiramate (Topamax -) 50 mg PO DAILY [facility] Last Admin: 09/15/18 10:01 Dose: 50 mg - Objective Vital Signs: Vital Signs Temperature 99.4 F 09/15/18 05:55 Pulse Rate 78 09/15/18 05:55 Respiratory Rate 20 09/15/18 05:55 Blood Pressure 150/79 09/15/18 05:55 O2 Sat by Pulse Oximetry (%) 98 09/14/18 20:40 Constitutional: Yes: No Distress, Calm, Obese Cardiovascular: Yes: Regular Rate and Rhythm Respiratory: Yes: Regular, CTA Bilaterally Gastrointestinal: Yes: Normal Bowel Sounds, Soft Musculoskeletal: Yes: WNL Extremities: Yes: WNL Neurological: Yes: Alert, Oriented Psychiatric: Yes: Alert, Oriented Labs: CBC, BMP 09/13/18 07:30 09/13/18 07:30 Assessment/Plan 1 r/o malignancy of the lung 2 dirrhoea 3 weight loss 4 fever 5 dm\ 6 pna plan continue abx awaiting for gi to work up rest as per the team patient stable
--- NOTE | 2018-09-15 13:58 | PN ---
Progress Note (short form) - Note Progress Note: headaches better no nausea Vital Signs - 24 hr 09/14/18 09/14/18 09/14/18 15:06 19:00 20:40 Temperature 99.6 F 98.6 F Pulse Rate 84 86 Respiratory 20 20 Rate Blood Pressure 144/61 148/76 O2 Sat by Pulse 98 Oximetry (%) 09/15/18 09/15/18 05:55 09:00 Temperature 99.4 F 98.4 F Pulse Rate 78 75 Respiratory 20 20 Rate Blood Pressure 150/79 140/74 O2 Sat by Pulse Oximetry (%) Current Medications Generic Name Dose Route Start Last Admin Trade Name Freq PRN Reason Stop Dose Admin Acetaminophen 650 mg 09/12/18 02:11 09/14/18 23:59 Tylenol - PO 650 mg Q4H PRN Administration PAIN Albuterol/Ipratropium 1 amp 09/13/18 14:00 09/14/18 20:32 Duoneb - NEB 1 amp RTID YESI Administration Aspirin 81 mg 09/12/18 10:00 09/15/18 10:00 Ecotrin - PO 81 mg DAILY YESI Administration Enoxaparin Sodium 40 mg 09/12/18 10:00 09/15/18 10:01 Lovenox - SQ 40 mg DAILY YESI Administration Azithromycin 500 mg in 250 mls @ 250 mls/hr 09/12/18 22:00 09/14/18 22:40 Zithromax 500mg Ivpb (Pre-Docked) IVPB 250 mls/hr HS YESI Administration Ceftriaxone Sodium 1 gm/ 50 mls @ 100 mls/hr 09/12/18 22:00 09/14/18 21:24 Dextrose IVPB 100 mls/hr HS YESI Administration Sodium Chloride 1,000 mls @ 75 mls/hr 09/12/18 17:30 09/15/18 02:45 Normal Saline - IV 75 mls/hr ASDIR YESI Administration Insulin Aspart 1 vial 09/12/18 16:30 09/15/18 12:04 Novolog Vial Sliding Scale - SQ 6 units ACHS YESI Administration Protocol Lactobacillus Acidophilus 1 tab 09/13/18 10:00 09/15/18 10:01 Bacid - PO 1 tab DAILY YESI Administration Multivitamins/Minerals 1 each 09/12/18 10:00 09/15/18 10:01 Theragran-M PO 1 each DAILY YESI Administration Ondansetron HCl 4 mg 09/12/18 13:24 09/12/18 13:51 Zofran Injection IVPUSH 4 mg Q6H PRN Administration NAUSEA Pantoprazole Sodium 40 mg 09/12/18 10:00 09/15/18 10:01 Protonix - PO 40 mg DAILY YESI Administration Pramipexole Dihydrochloride 0.25 mg 09/12/18 06:00 09/15/18 05:54 Mirapex - PO 0.25 mg TID YESI Administration Psyllium Hydrophilic Mucilloid 5.85 gm 09/15/18 10:00 09/15/18 10:01 Metamucil (Sugar-Free) - PO Not Given DAILY YESI Sumatriptan Succinate 25 mg 09/12/18 13:22 09/12/18 21:00 Imitrex - PO 25 mg DAILY PRN Administration HEADACHE Topiramate 50 mg 09/12/18 10:00 09/15/18 10:01 Topamax - PO 50 mg DAILY YESI Administration Laboratory Results - last 24 hr 09/14/18 09/14/18 09/15/18 16:00 21:04 05:51 POC Glucometer 148 240 161 09/15/18 11:53 POC Glucometer 230 S1S2 RRR Lungs decreased Abd- soft, NT, ND No edema IV fluids Stool studies IV antibiotics spoke with ID, Pulmonary and GI diabetic control Problem List - Problems (1) Diarrhea Code(s): R19.7 - DIARRHEA, UNSPECIFIED Qualifiers: Diarrhea type: unspecified type Qualified Code(s): R19.7 - Diarrhea, unspecified (2) Headache Code(s): R51 - HEADACHE Qualifiers: Headache type: unspecified Headache chronicity pattern: acute headache Intractability: not intractable Qualified Code(s): R51 - Headache (3) Nausea & vomiting Code(s): R11.2 - NAUSEA WITH VOMITING, UNSPECIFIED Qualifiers: Vomiting type: unspecified Vomiting Intractability: intractable Qualified Code(s): R11.2 - Nausea with vomiting, unspecified (4) PNA (pneumonia) Code(s): J18.9 - PNEUMONIA, UNSPECIFIED ORGANISM Qualifiers: Pneumonia type: due to unspecified organism Laterality: left Lung location: lower lobe of lung Qualified Code(s): J18.1 - Lobar pneumonia, unspecified organism (5) Diabetes Code(s): E11.9 - TYPE 2 DIABETES MELLITUS WITHOUT COMPLICATIONS
--- NOTE | 2018-09-15 19:51 | PN ---
GI Progress Note Subjective: GI NOte; Even after completing 4 liters of Goleytly lavage, Elizabeth had postprandial diarrhea again after dinner. I have therefore proposed a colonoscopy but have told her that I do not have an opportunity until 09/18. I informed her of the potential for such complication as perforation and hemorrhage and she has give an informed consent. I will try Questran in the interim. If it works we can cancel the colonoscopy - Objective Vital Signs: Vital Signs Temperature 98.5 F 09/15/18 14:00 Pulse Rate 77 09/15/18 14:00 Respiratory Rate 21 H 09/15/18 14:00 Blood Pressure 144/86 09/15/18 14:00 O2 Sat by Pulse Oximetry (%) 98 09/14/18 20:40 Laboratory Tests 09/12/18 09/12/18 09/13/18 12:00 12:00 07:30 Plasma 5-HIAA Pending Vasoact Intest Polypep Pending Pancreatic Polypeptide Pending Stool Osmolality Pending Stool Lactoferrin Pending Constitutional: Calm ...Auscultate: Yes: Normoactive Bowel Sounds ...Palpate: Yes: Soft, Other (nontender) Labs: CBC, BMP 09/13/18 07:30 09/13/18 07:30 Assessment/Plan Diarrhea remains unexplained and has not responded to colon cleansing Will try Questran, if this fails then colonoscopy in 09/18 Problem List - Problems (1) Diarrhea Code(s): R19.7 - DIARRHEA, UNSPECIFIED Qualifiers: Diarrhea type: unspecified type Qualified Code(s): R19.7 - Diarrhea, unspecified (2) Diverticula of colon Code(s): K57.30 - DVRTCLOS OF LG INT W/O PERFORATION OR ABSCESS W/O BLEEDING (3) Colon polyp, hyperplastic Code(s): K63.5 - POLYP OF COLON Qualifiers: Colon location: unspecified part of colon Qualified Code(s): K63.5 - Polyp of colon (4) Incontinence of feces Code(s): R15.9 - FULL INCONTINENCE OF FECES Qualifiers: Fecal incontinence type: incomplete defecation Qualified Code(s): R15.0 - Incomplete defecation (5) Asthma Code(s): J45.909 - UNSPECIFIED ASTHMA, UNCOMPLICATED (6) Diabetes Code(s): E11.9 - TYPE 2 DIABETES MELLITUS WITHOUT COMPLICATIONS
[2018-09-15] MEDS ORDERED: cefTRIAXone SODIUM 1 GM VIAL ONE (21:10)
[2018-09-15] MEDS ORDERED: DEXTROSE 5%-WATER - 50 ML IVPB ONE (21:10)
[2018-09-15] MEDS: AZITHROMYCIN IVPB 500 MG/250 ML BAG IVPB SCH (21:20)
[2018-09-15] MEDS: CEFTRIAXONE 1 GM in DEXTROSE 5%-WATER - 50 ML IVPB SCH (21:20)
[2018-09-15] MEDS: ACETAMINOPHEN 325 MG TABLET (FP) PO PRN (22:08)
[2018-09-16] MEDS ORDERED: PT OWN MED DRAWER 7, Y5N ONE ×3 (05:26→14:13)
[2018-09-16] MEDS: PRAMIPEXOLE DIHYDROCHLORIDE 0.25 MG TABLET PO SCH ×3 (05:31→22:34)
[2018-09-16] MEDS: INSULIN SLIDING SCALE (NOVOLOG) 1 VIAL SQ SCH ×4 (06:14→22:41)
[2018-09-16] MEDS: SODIUM CHLORIDE 1,000 ML IV SCH ×4 (06:19→22:31)
[2018-09-16] MEDS ORDERED: INSULIN (NOVOLOG) ASPART 100 UNITS/ML 10ML VIAL ONE ×2 (06:33→21:18)
[2018-09-16] MEDS: ALBUTEROL SO4 2.5/IPRATROPIUM 0.5 INH SOL 3 ML VIAL.NEB. NEB SCH ×3 (07:56→20:52)
[2018-09-16] MEDS: PANTOPRAZOLE 40 MG TABLET (FP) PO SCH (09:56)
[2018-09-16] MEDS: LACTOBACILLUS ACIDOPHILUS 1 TABLET PO SCH (09:56)
[2018-09-16] MEDS: TOPIRAMATE 25 MG TABLET (FP) PO SCH (09:56)
[2018-09-16] MEDS: ASPIRIN COATED 81 MG TABLET.EC PO SCH (09:56)
[2018-09-16] MEDS: ENOXAPARIN NA (PORCINE) 40 MG/0.4 ML DISP.SYRIN SQ SCH (09:56)
[2018-09-16] MEDS: MULTIVITAMINS THER W-MINERALS COMBO TABLET (FP) PO SCH (09:56)
[2018-09-16] MEDS: CHOLESTYRAMINE/ASPARTAME 4 GM PACKET PO SCH (09:57)
[2018-09-16] MEDS: PSYLLIUM 5.85 GM PACKET PO SCH (09:57)
--- NOTE | 2018-09-16 10:50 | PN ---
Progress Note (short form) - Note Progress Note: headaches better no nausea still has diarrhea GI follow up noted vitals noted S1S2 RRR Lungs decreased Abd- soft, NT, ND No edema PLAN change diet colonoscopy on Friday IV fluids Stool studies IV antibiotics spoke with ID, Pulmonary and GI diabetic control Problem List - Problems (1) Diarrhea Code(s): R19.7 - DIARRHEA, UNSPECIFIED Qualifiers: Diarrhea type: unspecified type Qualified Code(s): R19.7 - Diarrhea, unspecified (2) Headache Code(s): R51 - HEADACHE Qualifiers: Headache type: unspecified Headache chronicity pattern: acute headache Intractability: not intractable Qualified Code(s): R51 - Headache (3) Nausea & vomiting Code(s): R11.2 - NAUSEA WITH VOMITING, UNSPECIFIED Qualifiers: Vomiting type: unspecified Vomiting Intractability: intractable Qualified Code(s): R11.2 - Nausea with vomiting, unspecified (4) PNA (pneumonia) Code(s): J18.9 - PNEUMONIA, UNSPECIFIED ORGANISM Qualifiers: Pneumonia type: due to unspecified organism Laterality: left Lung location: lower lobe of lung Qualified Code(s): J18.1 - Lobar pneumonia, unspecified organism (5) Diabetes Code(s): E11.9 - TYPE 2 DIABETES MELLITUS WITHOUT COMPLICATIONS
--- NOTE | 2018-09-16 11:32 | PN ---
Progress Note, Physician History of Present Illness: connie nicole take by patient according to the gi colonoscopy - Current Medication List Current Medications: Active Medications Acetaminophen (Tylenol -) 650 mg PO Q4H PRN PRN Reason: PAIN Last Admin: 09/15/18 22:08 Dose: 650 mg Albuterol/Ipratropium (Duoneb -) 1 amp NEB RTID [facility] Last Admin: 09/16/18 07:56 Dose: 1 amp Aspirin (Ecotrin -) 81 mg PO DAILY [facility] Last Admin: 09/16/18 09:56 Dose: 81 mg Bisacodyl (Dulcolax -) 20 mg PO ONCE ONE Stop: 09/17/18 18:01 Cholestyramine Resin (Questran Light Packet -) 4 gm PO DAILY [facility] Last Admin: 09/16/18 09:57 Dose: 4 gm Enoxaparin Sodium (Lovenox -) 40 mg SQ DAILY [facility] Last Admin: 09/16/18 09:56 Dose: 40 mg Azithromycin (Zithromax 500mg Ivpb (Pre-Docked)) 500 mg in 250 mls @ 250 mls/ hr IVPB HS [facility] Last Admin: 09/15/18 21:20 Dose: 250 mls/hr Ceftriaxone Sodium 1 gm/ (Dextrose) 50 mls @ 100 mls/hr IVPB HS [facility] Last Admin: 09/15/18 21:20 Dose: 100 mls/hr Sodium Chloride (Normal Saline -) 1,000 mls @ 75 mls/hr IV ASDIR [facility] Last Admin: 09/16/18 09:57 Dose: 75 mls/hr Insulin Aspart (Novolog Vial Sliding Scale -) 1 vial SQ ACHS [facility]; Protocol Last Admin: 09/16/18 06:14 Dose: Not Given Lactobacillus Acidophilus (Bacid -) 1 tab PO DAILY [facility] Last Admin: 09/16/18 09:56 Dose: 1 tab Multivitamins/Minerals (Theragran-M) 1 each PO DAILY [facility] Last Admin: 09/16/18 09:56 Dose: 1 each Ondansetron HCl (Zofran Injection) 4 mg IVPUSH Q6H PRN PRN Reason: NAUSEA Last Admin: 09/12/18 13:51 Dose: 4 mg Pantoprazole Sodium (Protonix -) 40 mg PO DAILY [facility] Last Admin: 09/16/18 09:56 Dose: 40 mg Pramipexole Dihydrochloride (Mirapex -) 0.25 mg PO TID [facility] Last Admin: 09/16/18 05:31 Dose: 0.25 mg Psyllium Hydrophilic Mucilloid (Metamucil (Sugar-Free) -) 5.85 gm PO DAILY [facility] Last Admin: 09/16/18 09:57 Dose: 5.85 gm Sumatriptan Succinate (Imitrex -) 25 mg PO DAILY PRN PRN Reason: HEADACHE Last Admin: 09/12/18 21:00 Dose: 25 mg Topiramate (Topamax -) 50 mg PO DAILY [facility] Last Admin: 09/16/18 09:56 Dose: 50 mg - Objective Vital Signs: Vital Signs Temperature 98.6 F 09/16/18 05:58 Pulse Rate 70 09/16/18 05:58 Respiratory Rate 20 09/16/18 05:58 Blood Pressure 151/78 09/16/18 05:58 O2 Sat by Pulse Oximetry (%) 98 09/15/18 22:00 Constitutional: Yes: No Distress, Calm, Obese Cardiovascular: Yes: Regular Rate and Rhythm Respiratory: Yes: Regular, CTA Bilaterally Gastrointestinal: Yes: Normal Bowel Sounds, Soft Musculoskeletal: Yes: WNL Extremities: Yes: WNL Neurological: Yes: Alert, Oriented Psychiatric: Yes: Alert, Oriented Labs: CBC, BMP 09/13/18 07:30 09/13/18 07:30 Assessment/Plan 1 r/o malignancy of the lung 2 dirrhoea 3 weight loss 4 fever 5 dm\ 6 pna plan continue abx colonoscopy rest as per the team patient stable
[2018-09-16] MEDS: ACETAMINOPHEN 325 MG TABLET (FP) PO PRN (11:43)
--- NOTE | 2018-09-16 15:41 | PN ---
Progress Note (short form) - Note Progress Note: PULMONARY Still with nonproductive cough but chest feels looser. No fevers recorded. Vital Signs Period Temp Pulse Resp BP Sys/Adkins Pulse Ox Last 24 Hr 98.2 F-98.6 F 70-98 18-20 137-152/65-79 97-98 Gen: NAD at rest Heart: RRR Lung: decreased breath sounds at the bases Abd: soft, nontender Ext: no edema CBC, BMP 09/13/18 07:30 09/13/18 07:30 Active Medications Acetaminophen (Tylenol -) 650 mg PO Q4H PRN PRN Reason: PAIN Last Admin: 09/16/18 11:43 Dose: 650 mg Albuterol/Ipratropium (Duoneb -) 1 amp NEB RTID [facility] Last Admin: 09/16/18 07:56 Dose: 1 amp Aspirin (Ecotrin -) 81 mg PO DAILY [facility] Last Admin: 09/16/18 09:56 Dose: 81 mg Bisacodyl (Dulcolax -) 20 mg PO ONCE ONE Stop: 09/17/18 18:01 Cholestyramine Resin (Questran Light Packet -) 4 gm PO DAILY [facility] Last Admin: 09/16/18 09:57 Dose: 4 gm Enoxaparin Sodium (Lovenox -) 40 mg SQ DAILY [facility] Last Admin: 09/16/18 09:56 Dose: 40 mg Azithromycin (Zithromax 500mg Ivpb (Pre-Docked)) 500 mg in 250 mls @ 250 mls/ hr IVPB [facility] Last Admin: 09/15/18 21:20 Dose: 250 mls/hr Ceftriaxone Sodium 1 gm/ (Dextrose) 50 mls @ 100 mls/hr IVPB HS [facility] Last Admin: 09/15/18 21:20 Dose: 100 mls/hr Sodium Chloride (Normal Saline -) 1,000 mls @ 75 mls/hr IV ASDIR [facility] Last Admin: 09/16/18 09:57 Dose: 75 mls/hr Insulin Aspart (Novolog Vial Sliding Scale -) 1 vial SQ ACHS [facility]; Protocol Last Admin: 09/16/18 11:45 Dose: Not Given Lactobacillus Acidophilus (Bacid -) 1 tab PO DAILY [facility] Last Admin: 09/16/18 09:56 Dose: 1 tab Multivitamins/Minerals (Theragran-M) 1 each PO DAILY [facility] Last Admin: 09/16/18 09:56 Dose: 1 each Ondansetron HCl (Zofran Injection) 4 mg IVPUSH Q6H PRN PRN Reason: NAUSEA Last Admin: 09/12/18 13:51 Dose: 4 mg Pantoprazole Sodium (Protonix -) 40 mg PO DAILY [facility] Last Admin: 09/16/18 09:56 Dose: 40 mg Pramipexole Dihydrochloride (Mirapex -) 0.25 mg PO TID [facility] Last Admin: 09/16/18 14:08 Dose: 0.25 mg Psyllium Hydrophilic Mucilloid (Metamucil (Sugar-Free) -) 5.85 gm PO DAILY [facility] Last Admin: 09/16/18 09:57 Dose: 5.85 gm Sumatriptan Succinate (Imitrex -) 25 mg PO DAILY PRN PRN Reason: HEADACHE Last Admin: 09/12/18 21:00 Dose: 25 mg Topiramate (Topamax -) 50 mg PO DAILY [facility] Last Admin: 09/16/18 09:56 Dose: 50 mg A/P Pneumonia r/o Lung Mass Chronic Diarrhea Depression RLS - complete antibiotics - f/u cultures - O2 to keep SpO2 >90% - will need short term f/u of CT chest in 4-6 weeks to ensure resolution of infiltrate - DVT prophylaxis
[2018-09-16] MEDS ORDERED: cefTRIAXone SODIUM 1 GM VIAL ONE (21:18)
[2018-09-16] MEDS ORDERED: DEXTROSE 5%-WATER - 50 ML IVPB ONE (21:20)
[2018-09-16] MEDS: CEFTRIAXONE 1 GM in DEXTROSE 5%-WATER - 50 ML IVPB SCH (22:32)
[2018-09-16] MEDS: AZITHROMYCIN IVPB 500 MG/250 ML BAG IVPB SCH (22:33)
[2018-09-17] MEDS: PRAMIPEXOLE DIHYDROCHLORIDE 0.25 MG TABLET PO SCH ×3 (06:21→22:48)
[2018-09-17] MEDS: INSULIN SLIDING SCALE (NOVOLOG) 1 VIAL SQ SCH ×4 (06:31→21:35)
[2018-09-17] MEDS: ALBUTEROL SO4 2.5/IPRATROPIUM 0.5 INH SOL 3 ML VIAL.NEB. NEB SCH ×3 (08:07→20:46)
[2018-09-17] MEDS ORDERED: PEG3350/SOD SULF,BICARB,CL/KCL 4,000 ML SOLN.RECON PO ONE (09:00)
[2018-09-17] MEDS: ASPIRIN COATED 81 MG TABLET.EC PO SCH (10:04)
[2018-09-17] MEDS: TOPIRAMATE 25 MG TABLET (FP) PO SCH (10:04)
[2018-09-17] MEDS: MULTIVITAMINS THER W-MINERALS COMBO TABLET (FP) PO SCH (10:04)
[2018-09-17] MEDS: PANTOPRAZOLE 40 MG TABLET (FP) PO SCH (10:04)
[2018-09-17] MEDS: LACTOBACILLUS ACIDOPHILUS 1 TABLET PO SCH (10:04)
[2018-09-17] MEDS: ENOXAPARIN NA (PORCINE) 40 MG/0.4 ML DISP.SYRIN SQ SCH (10:05)
[2018-09-17] MEDS: PSYLLIUM 5.85 GM PACKET PO SCH (10:05)
[2018-09-17] MEDS: CHOLESTYRAMINE/ASPARTAME 4 GM PACKET PO SCH (10:05)
--- NOTE | 2018-09-17 10:10 | PN ---
Progress Note (short form) - Note Progress Note: preparing for colonoscopy tomorrow Vital Signs - 24 hr 09/16/18 09/16/18 09/16/18 13:44 17:00 19:33 Temperature 98.5 F 98.5 F 99.7 F H Pulse Rate 75 75 69 Respiratory 18 18 20 Rate Blood Pressure 137/73 137/73 141/61 O2 Sat by Pulse Oximetry (%) 09/16/18 09/17/18 09/17/18 21:00 06:00 09:00 Temperature 98.2 F Pulse Rate 79 Respiratory 20 18 Rate Blood Pressure 143/68 O2 Sat by Pulse 98 99 Oximetry (%) Current Medications Generic Name Dose Route Start Last Admin Trade Name Freq PRN Reason Stop Dose Admin Acetaminophen 650 mg 09/12/18 02:11 09/16/18 11:43 Tylenol - PO 650 mg Q4H PRN Administration PAIN Albuterol/Ipratropium 1 amp 09/13/18 14:00 09/17/18 08:07 Duoneb - NEB 1 amp RTID YESI Administration Aspirin 81 mg 09/12/18 10:00 09/17/18 10:04 Ecotrin - PO 81 mg DAILY YESI Administration Bisacodyl 20 mg 09/17/18 18:00 Dulcolax - PO 09/17/18 18:01 ONCE ONE Cholestyramine Resin 4 gm 09/16/18 10:00 09/17/18 10:05 Questran Light Packet - PO 4 gm DAILY YESI Administration Enoxaparin Sodium 40 mg 09/12/18 10:00 09/17/18 10:05 Lovenox - SQ 40 mg DAILY YESI Administration Azithromycin 500 mg in 250 mls @ 250 mls/hr 09/12/18 22:00 09/16/18 22:33 Zithromax 500mg Ivpb (Pre-Docked) IVPB 250 mls/hr HS YESI Administration Ceftriaxone Sodium 1 gm/ 50 mls @ 100 mls/hr 09/12/18 22:00 09/16/18 22:32 Dextrose IVPB 100 mls/hr HS YESI Administration Sodium Chloride 1,000 mls @ 75 mls/hr 09/12/18 17:30 09/16/18 22:31 Normal Saline - IV 75 mls/hr ASDIR YESI Administration Insulin Aspart 1 vial 09/12/18 16:30 09/17/18 06:31 Novolog Vial Sliding Scale - SQ Not Given ACHS [facility] Protocol Lactobacillus Acidophilus 1 tab 09/13/18 10:00 09/17/18 10:04 Bacid - PO 1 tab DAILY YESI Administration Multivitamins/Minerals 1 each 09/12/18 10:00 09/17/18 10:04 Theragran-M PO 1 each DAILY YESI Administration Ondansetron HCl 4 mg 09/12/18 13:24 09/12/18 13:51 Zofran Injection IVPUSH 4 mg Q6H PRN Administration NAUSEA Pantoprazole Sodium 40 mg 09/12/18 10:00 09/17/18 10:04 Protonix - PO 40 mg DAILY YESI Administration Pramipexole Dihydrochloride 0.25 mg 09/12/18 06:00 09/17/18 06:21 Mirapex - PO 0.25 mg TID YESI Administration Psyllium Hydrophilic Mucilloid 5.85 gm 09/15/18 10:00 09/17/18 10:05 Metamucil (Sugar-Free) - PO 5.85 gm DAILY YESI Administration Sumatriptan Succinate 25 mg 09/12/18 13:22 09/12/18 21:00 Imitrex - PO 25 mg DAILY PRN Administration HEADACHE Topiramate 50 mg 09/12/18 10:00 09/17/18 10:04 Topamax - PO 50 mg DAILY YESI Administration Laboratory Results - last 24 hr 09/13/18 09/16/18 09/16/18 07:30 07:15 11:42 POC Glucometer 142 Ur Random 5-HIAA Cancelled Urine 5-HIAA 24 Hour Cancelled Tiss Transglutamin IgG < 2 Tiss Transglutamin IgA < 2 09/16/18 09/16/18 09/17/18 16:30 22:40 06:23 POC Glucometer 199 152 139 Ur Random 5-HIAA Urine 5-HIAA 24 Hour Tiss Transglutamin IgG Tiss Transglutamin IgA S1S2 RRR Lungs decreased Abd- soft, NT, ND No edema PLAN change diet colonoscopy on Friday IV fluids Stool studies IV antibiotics Problem List - Problems (1) Diarrhea Code(s): R19.7 - DIARRHEA, UNSPECIFIED Qualifiers: Diarrhea type: unspecified type Qualified Code(s): R19.7 - Diarrhea, unspecified (2) Headache Code(s): R51 - HEADACHE Qualifiers: Headache type: unspecified Headache chronicity pattern: acute headache Intractability: not intractable Qualified Code(s): R51 - Headache (3) Nausea & vomiting Code(s): R11.2 - NAUSEA WITH VOMITING, UNSPECIFIED Qualifiers: Vomiting type: unspecified Vomiting Intractability: intractable Qualified Code(s): R11.2 - Nausea with vomiting, unspecified (4) PNA (pneumonia) Code(s): J18.9 - PNEUMONIA, UNSPECIFIED ORGANISM Qualifiers: Pneumonia type: due to unspecified organism Laterality: left Lung location: lower lobe of lung Qualified Code(s): J18.1 - Lobar pneumonia, unspecified organism (5) Diabetes Code(s): E11.9 - TYPE 2 DIABETES MELLITUS WITHOUT COMPLICATIONS
[2018-09-17 10:13] LABS: TRANSGLUTAMINASE IGA < 2 U/mL (0-3); TRANSGLUTAMINASE IGG < 2 U/mL (0-5)
--- NOTE | 2018-09-17 10:30 | PN ---
Progress Note (short form) - Note Progress Note: PULMONARY Cough improving. No fevers recorded. Vital Signs Period Temp Pulse Resp BP Sys/Adkins Pulse Ox Last 24 Hr 98.2 F-99.7 F 69-79 18-20 137-143/61-73 98-99 Gen: NAD at rest Heart: RRR Lung: decreased breath sounds at the bases Abd: soft, nontender Ext: no edema CBC, BMP 09/13/18 07:30 09/13/18 07:30 Active Medications Acetaminophen (Tylenol -) 650 mg PO Q4H PRN PRN Reason: PAIN Last Admin: 09/16/18 11:43 Dose: 650 mg Albuterol/Ipratropium (Duoneb -) 1 amp NEB RTID [facility] Last Admin: 09/17/18 08:07 Dose: 1 amp Aspirin (Ecotrin -) 81 mg PO DAILY [facility] Last Admin: 09/17/18 10:04 Dose: 81 mg Bisacodyl (Dulcolax -) 20 mg PO ONCE ONE Stop: 09/17/18 18:01 Cholestyramine Resin (Questran Light Packet -) 4 gm PO DAILY [facility] Last Admin: 09/17/18 10:05 Dose: 4 gm Enoxaparin Sodium (Lovenox -) 40 mg SQ DAILY [facility] Last Admin: 09/17/18 10:05 Dose: 40 mg Azithromycin (Zithromax 500mg Ivpb (Pre-Docked)) 500 mg in 250 mls @ 250 mls/ hr IVPB HS [facility] Last Admin: 09/16/18 22:33 Dose: 250 mls/hr Ceftriaxone Sodium 1 gm/ (Dextrose) 50 mls @ 100 mls/hr IVPB HS [facility] Last Admin: 09/16/18 22:32 Dose: 100 mls/hr Sodium Chloride (Normal Saline -) 1,000 mls @ 75 mls/hr IV ASDIR [facility] Last Admin: 09/16/18 22:31 Dose: 75 mls/hr Insulin Aspart (Novolog Vial Sliding Scale -) 1 vial SQ ACHS [facility]; Protocol Last Admin: 09/17/18 06:31 Dose: Not Given Lactobacillus Acidophilus (Bacid -) 1 tab PO DAILY [facility] Last Admin: 09/17/18 10:04 Dose: 1 tab Multivitamins/Minerals (Theragran-M) 1 each PO DAILY [facility] Last Admin: 09/17/18 10:04 Dose: 1 each Ondansetron HCl (Zofran Injection) 4 mg IVPUSH Q6H PRN PRN Reason: NAUSEA Last Admin: 09/12/18 13:51 Dose: 4 mg Pantoprazole Sodium (Protonix -) 40 mg PO DAILY [facility] Last Admin: 09/17/18 10:04 Dose: 40 mg Pramipexole Dihydrochloride (Mirapex -) 0.25 mg PO TID [facility] Last Admin: 09/17/18 06:21 Dose: 0.25 mg Psyllium Hydrophilic Mucilloid (Metamucil (Sugar-Free) -) 5.85 gm PO DAILY [facility] Last Admin: 09/17/18 10:05 Dose: 5.85 gm Sumatriptan Succinate (Imitrex -) 25 mg PO DAILY PRN PRN Reason: HEADACHE Last Admin: 09/12/18 21:00 Dose: 25 mg Topiramate (Topamax -) 50 mg PO DAILY [facility] Last Admin: 09/17/18 10:04 Dose: 50 mg A/P Pneumonia r/o Lung Mass Chronic Diarrhea Depression RLS - complete antibiotics - f/u cultures - O2 to keep SpO2 >90% - will need short term f/u of CT chest in 4-6 weeks to ensure resolution of infiltrate - DVT prophylaxis
--- NOTE | 2018-09-17 13:12 | PN ---
Progress Note, Physician History of Present Illness: stable no new issues being worked up - Current Medication List Current Medications: Active Medications Acetaminophen (Tylenol -) 650 mg PO Q4H PRN PRN Reason: PAIN Last Admin: 09/16/18 11:43 Dose: 650 mg Albuterol/Ipratropium (Duoneb -) 1 amp NEB RTID [facility] Last Admin: 09/17/18 08:07 Dose: 1 amp Aspirin (Ecotrin -) 81 mg PO DAILY [facility] Last Admin: 09/17/18 10:04 Dose: 81 mg Bisacodyl (Dulcolax -) 20 mg PO ONCE ONE Stop: 09/17/18 18:01 Cholestyramine Resin (Questran Light Packet -) 4 gm PO DAILY [facility] Last Admin: 09/17/18 10:05 Dose: 4 gm Enoxaparin Sodium (Lovenox -) 40 mg SQ DAILY [facility] Last Admin: 09/17/18 10:05 Dose: 40 mg Azithromycin (Zithromax 500mg Ivpb (Pre-Docked)) 500 mg in 250 mls @ 250 mls/ hr IVPB HS [facility] Last Admin: 09/16/18 22:33 Dose: 250 mls/hr Ceftriaxone Sodium 1 gm/ (Dextrose) 50 mls @ 100 mls/hr IVPB HS [facility] Last Admin: 09/16/18 22:32 Dose: 100 mls/hr Sodium Chloride (Normal Saline -) 1,000 mls @ 75 mls/hr IV ASDIR [facility] Last Admin: 09/16/18 22:31 Dose: 75 mls/hr Insulin Aspart (Novolog Vial Sliding Scale -) 1 vial SQ ACHS [facility]; Protocol Last Admin: 09/17/18 11:00 Dose: 2 units Lactobacillus Acidophilus (Bacid -) 1 tab PO DAILY [facility] Last Admin: 09/17/18 10:04 Dose: 1 tab Multivitamins/Minerals (Theragran-M) 1 each PO DAILY [facility] Last Admin: 09/17/18 10:04 Dose: 1 each Ondansetron HCl (Zofran Injection) 4 mg IVPUSH Q6H PRN PRN Reason: NAUSEA Last Admin: 09/12/18 13:51 Dose: 4 mg Pantoprazole Sodium (Protonix -) 40 mg PO DAILY [facility] Last Admin: 09/17/18 10:04 Dose: 40 mg Pramipexole Dihydrochloride (Mirapex -) 0.25 mg PO TID [facility] Last Admin: 09/17/18 06:21 Dose: 0.25 mg Psyllium Hydrophilic Mucilloid (Metamucil (Sugar-Free) -) 5.85 gm PO DAILY [facility] Last Admin: 09/17/18 10:05 Dose: 5.85 gm Sumatriptan Succinate (Imitrex -) 25 mg PO DAILY PRN PRN Reason: HEADACHE Last Admin: 09/12/18 21:00 Dose: 25 mg Topiramate (Topamax -) 50 mg PO DAILY [facility] Last Admin: 09/17/18 10:04 Dose: 50 mg - Objective Vital Signs: Vital Signs Temperature 98.6 F 09/17/18 10:00 Pulse Rate 73 09/17/18 10:00 Respiratory Rate 18 09/17/18 10:00 Blood Pressure 152/71 09/17/18 10:00 O2 Sat by Pulse Oximetry (%) 99 09/17/18 09:00 Constitutional: Yes: No Distress, Calm Cardiovascular: Yes: Regular Rate and Rhythm Respiratory: Yes: Regular, CTA Bilaterally Gastrointestinal: Yes: Normal Bowel Sounds, Soft Musculoskeletal: Yes: WNL Extremities: Yes: WNL Neurological: Yes: Alert, Oriented Psychiatric: Yes: Alert, Oriented Labs: CBC, BMP 09/13/18 07:30 09/13/18 07:30 Assessment/Plan 1 r/o malignancy of the lung 2 dirrhoea 3 weight loss 4 fever 5 dm\ 6 pna plan work up as per gi will stop abx tomorrow
[2018-09-17] MEDS ORDERED: PT OWN MED DRAWER 7, Y5N ONE (13:45)
[2018-09-17] MEDS: SODIUM CHLORIDE 1,000 ML IV SCH (17:25)
[2018-09-17] MEDS ORDERED: BISACODYL 5 MG TABLET.DR (FP) PO ONE (18:00)
--- NOTE | 2018-09-17 20:47 | PN ---
GI Progress Note Subjective: Gi NOte: Still having BMs despite completing [employer] [facility]. For colonoscopy tomorrow - Objective Vital Signs: Vital Signs Temperature 97.9 F 09/17/18 18:00 Pulse Rate 76 09/17/18 18:00 Respiratory Rate 20 09/17/18 18:00 Blood Pressure 148/74 09/17/18 18:00 O2 Sat by Pulse Oximetry (%) 99 09/17/18 20:37 Constitutional: Calm ...Auscultate: Yes: Normoactive Bowel Sounds, Other ...Palpate: Yes: Soft, Other (nontender) Labs: CBC, BMP 09/13/18 07:30 09/13/18 07:30 Assessment/Plan Diarrhea remains unexplained, for colonoscopy tomorrow Problem List - Problems (1) Diarrhea Code(s): R19.7 - DIARRHEA, UNSPECIFIED Qualifiers: Diarrhea type: unspecified type Qualified Code(s): R19.7 - Diarrhea, unspecified (2) Diverticula of colon Code(s): K57.30 - DVRTCLOS OF LG INT W/O PERFORATION OR ABSCESS W/O BLEEDING (3) Colon polyp, hyperplastic Code(s): K63.5 - POLYP OF COLON Qualifiers: Colon location: unspecified part of colon Qualified Code(s): K63.5 - Polyp of colon (4) Incontinence of feces Code(s): R15.9 - FULL INCONTINENCE OF FECES Qualifiers: Fecal incontinence type: incomplete defecation Qualified Code(s): R15.0 - Incomplete defecation (5) Asthma Code(s): J45.909 - UNSPECIFIED ASTHMA, UNCOMPLICATED (6) Diabetes Code(s): E11.9 - TYPE 2 DIABETES MELLITUS WITHOUT COMPLICATIONS
[2018-09-17] MEDS ORDERED: DEXTROSE 5%-WATER - 50 ML IVPB ONE (21:00)
[2018-09-17] MEDS ORDERED: cefTRIAXone SODIUM 1 GM VIAL ONE (21:00)
[2018-09-17] MEDS: CEFTRIAXONE 1 GM in DEXTROSE 5%-WATER - 50 ML IVPB SCH (21:24)
[2018-09-17] MEDS ORDERED: INSULIN (NOVOLOG) ASPART 100 UNITS/ML 10ML VIAL ONE (21:31)
[2018-09-17] MEDS: AZITHROMYCIN IVPB 500 MG/250 ML BAG IVPB SCH (22:50)
[2018-09-17] MEDS: SUMAtriptan SUCCINATE 25 MG TABLET PO PRN (23:14)
[2018-09-18] MEDS: SODIUM CHLORIDE 1,000 ML IV SCH ×3 (04:00→21:36)
[2018-09-18] MEDS: INSULIN SLIDING SCALE (NOVOLOG) 1 VIAL SQ SCH ×4 (06:19→21:29)
[2018-09-18] MEDS: PRAMIPEXOLE DIHYDROCHLORIDE 0.25 MG TABLET PO SCH ×3 (06:19→21:29)
[2018-09-18] MEDS ORDERED: PT OWN MED DRAWER 7, Y5N ONE ×4 (06:54→21:23)
[2018-09-18 07:38] LABS: BASO % 0.5 % (0-2.0); EOS % 2.9 % (0-4.5); HEMATOCRIT 36.4 % (32.4-45.2); HEMOGLOBIN 11.7 GM/dL (10.7-15.3); LYMPH % 24.7 % (8-40); MCHC 32.3 g/dl (32.0-36.0); MEAN CELL VOLUME 86.7 fl (80-96); MEAN PLT VOLUME 9.1 fl (7.5-11.1); MONO % 5.8 % (3.8-10.2); NEUT % 66.1 % (42.8-82.8); PLATELET COUNT 302 K/MM3 (134-434); RDW 13.6 % (11.6-15.6); WHITE BLOOD COUNT 7.7 K/mm3 (4.0-10.0)
[2018-09-18 07:55] LABS: ALBUMIN 2.9 g/dl (3.4-5.0); ALK PHOS 96 U/L (45-117); ANION GAP 8 MMOL/L (8-16); BILIRUBIN,TOTAL 0.2 mg/dL (0.2-1); BLOOD UREA NITROGEN 12 mg/dL (7-18); CALCIUM 8.8 mg/dL (8.5-10.1); CHLORIDE 105 mmol/L (98-107); CO2 26 mmol/L (21-32); CREATININE 0.8 mg/dL (0.55-1.3); GLUCOSE,RANDOM 158 mg/dL (74-106); POTASSIUM 4.6 mmol/L (3.5-5.1); SGOT/AST 38 U/L (15-37); SGPT/ALT 56 U/L (13-61); SODIUM 139 mmol/L (136-145); TOT PROT 6.3 g/dl (6.4-8.2)
[2018-09-18] MEDS: ALBUTEROL SO4 2.5/IPRATROPIUM 0.5 INH SOL 3 ML VIAL.NEB. NEB SCH (08:27)
--- NOTE | 2018-09-18 10:31 | PN ---
Progress Note, Physician History of Present Illness: still having jerad nicole completed colonoscopy today - Current Medication List Current Medications: Active Medications Acetaminophen (Tylenol -) 650 mg PO Q4H PRN PRN Reason: PAIN Last Admin: 09/16/18 11:43 Dose: 650 mg Albuterol/Ipratropium (Duoneb -) 1 amp NEB RTID [facility] Last Admin: 09/18/18 08:27 Dose: 1 amp Aspirin (Ecotrin -) 81 mg PO DAILY [facility] Last Admin: 09/17/18 10:04 Dose: 81 mg Cholestyramine Resin (Questran Light Packet -) 4 gm PO DAILY [facility] Last Admin: 09/17/18 10:05 Dose: 4 gm Enoxaparin Sodium (Lovenox -) 40 mg SQ DAILY [facility] Last Admin: 09/17/18 10:05 Dose: 40 mg Sodium Chloride (Normal Saline -) 1,000 mls @ 75 mls/hr IV ASDIR [facility] Last Admin: 09/18/18 04:00 Dose: 75 mls/hr Insulin Aspart (Novolog Vial Sliding Scale -) 1 vial SQ ACHS [facility]; Protocol Last Admin: 09/18/18 06:19 Dose: Not Given Lactobacillus Acidophilus (Bacid -) 1 tab PO DAILY [facility] Last Admin: 09/17/18 10:04 Dose: 1 tab Multivitamins/Minerals (Theragran-M) 1 each PO DAILY [facility] Last Admin: 09/17/18 10:04 Dose: 1 each Ondansetron HCl (Zofran Injection) 4 mg IVPUSH Q6H PRN PRN Reason: NAUSEA Last Admin: 09/12/18 13:51 Dose: 4 mg Pantoprazole Sodium (Protonix -) 40 mg PO DAILY [facility] Last Admin: 09/17/18 10:04 Dose: 40 mg Pramipexole Dihydrochloride (Mirapex -) 0.25 mg PO TID [facility] Last Admin: 09/18/18 06:19 Dose: Not Given Psyllium Hydrophilic Mucilloid (Metamucil (Sugar-Free) -) 5.85 gm PO DAILY [facility] Last Admin: 09/17/18 10:05 Dose: 5.85 gm Sumatriptan Succinate (Imitrex -) 25 mg PO DAILY PRN PRN Reason: HEADACHE Last Admin: 09/17/18 23:14 Dose: 25 mg Topiramate (Topamax -) 50 mg PO DAILY [facility]I Last Admin: 09/17/18 10:04 Dose: 50 mg - Objective Vital Signs: Vital Signs Temperature 98.0 F 09/18/18 06:00 Pulse Rate 72 09/18/18 06:00 Respiratory Rate 20 09/18/18 06:00 Blood Pressure 140/69 09/18/18 06:00 O2 Sat by Pulse Oximetry (%) 99 09/17/18 20:37 Constitutional: Yes: No Distress, Calm Cardiovascular: Yes: Regular Rate and Rhythm Respiratory: Yes: Regular, CTA Bilaterally Gastrointestinal: Yes: Normal Bowel Sounds, Soft Musculoskeletal: Yes: WNL Extremities: Yes: WNL Neurological: Yes: Alert, Oriented Psychiatric: Yes: Alert, Oriented Labs: CBC, BMP 09/18/18 06:00 09/18/18 06:00 Assessment/Plan 1 r/o malignancy of the lung 2 dirrhoea 3 weight loss 4 fever 5 dm\ 6 pna plan continue abx colonoscopy today rest as per the team patient stable
--- NOTE | 2018-09-18 11:16 | PN ---
Progress Note (short form) - Note Progress Note: Pt seen/ examined chart reviewed sitting in chair comfortable Colonoscopy today. Vital Signs Temp 98.0 F 09/18/18 06:00 Pulse 72 09/18/18 06:00 Resp 20 09/18/18 06:00 BP 140/69 09/18/18 06:00 Pulse Ox 99 09/17/18 20:37 Intake & Output 09/17/18 09/17/18 09/18/18 11:59 23:59 11:59 Intake Total 1200 2500 975 Output Total 1200 Balance 1200 1300 975 Weight 208 lb 2 oz Intake: IV 900 0 675 Normal Saline - 1,000 ml 900 0 675 @ 75 mls/hr IV ASDIR [facility] Rx#:[id number] IVPB 300 0 300 Oral 2500 Output: Urine 1200 Void 1200 Other: Voiding Method Toilet Toilet # Unmeasured Voids Void 2 4 Bowel Movement Yes: soft Yes # Bowel Movements 2 4 Weight Measurement Method [facility] Active Medications Acetaminophen (Tylenol -) 650 mg PO Q4H PRN PRN Reason: PAIN Last Admin: 09/16/18 11:43 Dose: 650 mg Albuterol/Ipratropium (Duoneb -) 1 amp NEB RTID [facility] Last Admin: 09/18/18 08:27 Dose: 1 amp Aspirin (Ecotrin -) 81 mg PO DAILY [facility] Last Admin: 09/17/18 10:04 Dose: 81 mg Cholestyramine Resin (Questran Light Packet -) 4 gm PO DAILY [facility] Last Admin: 09/17/18 10:05 Dose: 4 gm Enoxaparin Sodium (Lovenox -) 40 mg SQ DAILY [facility] Last Admin: 09/17/18 10:05 Dose: 40 mg Sodium Chloride (Normal Saline -) 1,000 mls @ 75 mls/hr IV ASDIR [facility] Last Admin: 09/18/18 04:00 Dose: 75 mls/hr Insulin Aspart (Novolog Vial Sliding Scale -) 1 vial SQ ACHS [facility]; Protocol Last Admin: 09/18/18 06:19 Dose: Not Given Lactobacillus Acidophilus (Bacid -) 1 tab PO DAILY [facility] Last Admin: 09/17/18 10:04 Dose: 1 tab Multivitamins/Minerals (Theragran-M) 1 each PO DAILY [facility] Last Admin: 09/17/18 10:04 Dose: 1 each Ondansetron HCl (Zofran Injection) 4 mg IVPUSH Q6H PRN PRN Reason: NAUSEA Last Admin: 09/12/18 13:51 Dose: 4 mg Pantoprazole Sodium (Protonix -) 40 mg PO DAILY [facility] Last Admin: 09/17/18 10:04 Dose: 40 mg Pramipexole Dihydrochloride (Mirapex -) 0.25 mg PO TID [facility] Last Admin: 09/18/18 06:19 Dose: Not Given Psyllium Hydrophilic Mucilloid (Metamucil (Sugar-Free) -) 5.85 gm PO DAILY [facility] Last Admin: 09/17/18 10:05 Dose: 5.85 gm Sumatriptan Succinate (Imitrex -) 25 mg PO DAILY PRN PRN Reason: HEADACHE Last Admin: 09/17/18 23:14 Dose: 25 mg Topiramate (Topamax -) 50 mg PO DAILY [facility] Last Admin: 09/17/18 10:04 Dose: 50 mg CBC, BMP 09/18/18 06:00 09/18/18 06:00 Physical exam S1S2 RRR Lungs decreased at bases Abd- soft, NT, ND. bs + No edema alert/ awake Mood - calm today PLAN colonoscopy today IV fluids Stool studies continue present care will follow Problem List - Problems (1) Diarrhea Code(s): R19.7 - DIARRHEA, UNSPECIFIED Qualifiers: Diarrhea type: unspecified type Qualified Code(s): R19.7 - Diarrhea, unspecified (2) Headache Code(s): R51 - HEADACHE Qualifiers: Headache type: unspecified Headache chronicity pattern: acute headache Intractability: not intractable Qualified Code(s): R51 - Headache (3) Nausea & vomiting Code(s): R11.2 - NAUSEA WITH VOMITING, UNSPECIFIED Qualifiers: Vomiting type: unspecified Vomiting Intractability: intractable Qualified Code(s): R11.2 - Nausea with vomiting, unspecified (4) PNA (pneumonia) Code(s): J18.9 - PNEUMONIA, UNSPECIFIED ORGANISM Qualifiers: Pneumonia type: due to unspecified organism Laterality: left Lung location: lower lobe of lung Qualified Code(s): J18.1 - Lobar pneumonia, unspecified organism (5) Diabetes Code(s): E11.9 - TYPE 2 DIABETES MELLITUS WITHOUT COMPLICATIONS
--- NOTE | 2018-09-18 13:05 | PN ---
Progress Note (short form) - Note Progress Note: PULMONARY APPEARS MUCH IMPROVED NO FURTHER NAUSEA/VOMITTING OR HEADACHE VSS/AFEBRILE ANICTERIC LEFT BASE DIMINISHED BREATH SOUNDS S1S2 BS+ NO EDEMA LOWER EXT VENOUS DOPPLERS NEGATIVE FOR DVT LABS/MEDS/NOTES REVIEWED CT FINDINGS LIKELY C/W COMMUNITY ACQUIRED PNEUMONIA CHRONIC DIARRHEA/FOR COLONOSCOPY TODAY MIGRAINE HEADACHES RESOLVED DEPRESSIVE DISORDER RLS IV ANTIBIOTICS COMPLETED WILL NEED F/U CT 4-6 WEEKS AN OUTPATIENT TO DOCUMENT CLEARING O2 SUPPLEMENTATION PRN BRONCHODILATORS TO FACILITATE MUCOUS CLEARANCE GI WORKUP/AWAITING COLONOSCOPY C.DIFF STOOL NEGATIVE/URINE ANTIGENS ARE NEGATIVE Meghna FIERRO MD Problem List - Problems (1) Diarrhea Code(s): R19.7 - DIARRHEA, UNSPECIFIED Qualifiers: Diarrhea type: unspecified type Qualified Code(s): R19.7 - Diarrhea, unspecified (2) Headache Code(s): R51 - HEADACHE Qualifiers: Headache type: unspecified Headache chronicity pattern: acute headache Intractability: not intractable Qualified Code(s): R51 - Headache (3) Nausea & vomiting Code(s): R11.2 - NAUSEA WITH VOMITING, UNSPECIFIED Qualifiers: Vomiting type: unspecified Vomiting Intractability: intractable Qualified Code(s): R11.2 - Nausea with vomiting, unspecified (4) PNA (pneumonia) Code(s): J18.9 - PNEUMONIA, UNSPECIFIED ORGANISM Qualifiers: Pneumonia type: due to unspecified organism Laterality: left Lung location: lower lobe of lung Qualified Code(s): J18.1 - Lobar pneumonia, unspecified organism (5) Asthma Code(s): J45.909 - UNSPECIFIED ASTHMA, UNCOMPLICATED
--- NOTE | 2018-09-18 14:33 | PN ---
Progress Note (short form) - Note Progress Note: GI Procedure NOte: Please see colonoscopy report. Despite 3 bowels preps this week the colon remains full of stool indicating paradoxical diarrhea due to fecal impaction. Biopsies were nevertheless taken to exclude microscopic colitis. A cecal polyp was removed. No GI objections to discharge on high fiber diet and daily Miralax. Problem List - Problems (1) Diarrhea Code(s): R19.7 - DIARRHEA, UNSPECIFIED Qualifiers: Diarrhea type: unspecified type Qualified Code(s): R19.7 - Diarrhea, unspecified (2) Diverticula of colon Code(s): K57.30 - DVRTCLOS OF LG INT W/O PERFORATION OR ABSCESS W/O BLEEDING (3) Colon polyp, hyperplastic Code(s): K63.5 - POLYP OF COLON Qualifiers: Colon location: unspecified part of colon Qualified Code(s): K63.5 - Polyp of colon (4) Incontinence of feces Code(s): R15.9 - FULL INCONTINENCE OF FECES Qualifiers: Fecal incontinence type: incomplete defecation Qualified Code(s): R15.0 - Incomplete defecation (5) Asthma Code(s): J45.909 - UNSPECIFIED ASTHMA, UNCOMPLICATED (6) Diabetes Code(s): E11.9 - TYPE 2 DIABETES MELLITUS WITHOUT COMPLICATIONS
[2018-09-18] MEDS: ASPIRIN COATED 81 MG TABLET.EC PO SCH (15:51)
[2018-09-18] MEDS: PANTOPRAZOLE 40 MG TABLET (FP) PO SCH (15:52)
[2018-09-18] MEDS: LACTOBACILLUS ACIDOPHILUS 1 TABLET PO SCH (15:52)
[2018-09-18] MEDS: PSYLLIUM 5.85 GM PACKET PO SCH (15:52)
[2018-09-18] MEDS: MULTIVITAMINS THER W-MINERALS COMBO TABLET (FP) PO SCH (15:52)
[2018-09-18] MEDS: TOPIRAMATE 25 MG TABLET (FP) PO SCH (15:54)
[2018-09-18] MEDS: ENOXAPARIN NA (PORCINE) 40 MG/0.4 ML DISP.SYRIN SQ SCH (15:59)
[2018-09-18] MEDS: CHOLESTYRAMINE/ASPARTAME 4 GM PACKET PO SCH (16:00)
[2018-09-18] MEDS: ACETAMINOPHEN 325 MG TABLET (FP) PO PRN (16:09)
[2018-09-18 16:46] VITALS: BMI 32.5
[2018-09-19] MEDS: PRAMIPEXOLE DIHYDROCHLORIDE 0.25 MG TABLET PO SCH ×2 (05:51→13:45)
[2018-09-19] MEDS: INSULIN SLIDING SCALE (NOVOLOG) 1 VIAL SQ SCH ×2 (06:01→12:05)
[2018-09-19] MEDS ORDERED: POLYETHYLENE GLYCOL 3350 119 GM BTL PO SCH (10:00)
[2018-09-19] MEDS: LACTOBACILLUS ACIDOPHILUS 1 TABLET PO SCH (10:51)
[2018-09-19] MEDS: ASPIRIN COATED 81 MG TABLET.EC PO SCH (10:51)
[2018-09-19] MEDS: PANTOPRAZOLE 40 MG TABLET (FP) PO SCH (10:51)
[2018-09-19] MEDS: CHOLESTYRAMINE/ASPARTAME 4 GM PACKET PO SCH (10:51)
[2018-09-19] MEDS: TOPIRAMATE 25 MG TABLET (FP) PO SCH (10:51)
[2018-09-19] MEDS: MULTIVITAMINS THER W-MINERALS COMBO TABLET (FP) PO SCH (10:51)
[2018-09-19] MEDS: PSYLLIUM 5.85 GM PACKET PO SCH (10:51)
[2018-09-19] MEDS: SODIUM CHLORIDE 1,000 ML IV SCH (11:18)
--- NOTE | 2018-09-19 12:31 | PN ---
Progress Note (short form) - Note Progress Note: OOB to chair. Appears comfortable on RA. Cough improving. No fevers recorded. Intake & Output 09/16/18 09/17/18 09/18/18 09/19/18 23:59 23:59 23:59 23:59 Intake Total 2465 3700 2375 900 Output Total 1200 Balance 2465 2500 2375 900 Weight 208 lb 2 oz 208 lb 206 lb 9 oz Last Vital Signs Temp Pulse Resp BP Pulse Ox 98.3 F 78 20 153/85 95 09/19/18 10:13 09/19/18 10:13 09/19/18 10:13 09/19/18 10:13 09/19/18 10:13 Active Medications Acetaminophen (Tylenol -) 650 mg PO Q4H PRN PRN Reason: PAIN Last Admin: 09/18/18 16:09 Dose: 650 mg Aspirin (Ecotrin -) 81 mg PO DAILY [facility] [place] Last Admin: 09/19/18 10:51 Dose: 81 mg Cholestyramine Resin (Questran Light Packet -) 4 gm PO DAILY [facility] Last Admin: 09/19/18 10:51 Dose: 4 gm Sodium Chloride (Normal Saline -) 1,000 mls @ 75 mls/hr IV ASDIR [facility] [place] Last Admin: 09/19/18 11:18 Dose: 75 mls/hr Insulin Aspart (Novolog Vial Sliding Scale -) 1 vial SQ ACHS [facility] [place]; Protocol Last Admin: 09/19/18 12:05 Dose: 2 units Lactobacillus Acidophilus (Bacid -) 1 tab PO DAILY [facility] Last Admin: 09/19/18 10:51 Dose: 1 tab Multivitamins/Minerals (Theragran-M) 1 each PO DAILY [facility] Last Admin: 09/19/18 10:51 Dose: 1 each Ondansetron HCl (Zofran Injection) 4 mg IVPUSH Q6H PRN PRN Reason: NAUSEA Last Admin: 09/12/18 13:51 Dose: 4 mg Pantoprazole Sodium (Protonix -) 40 mg PO DAILY [facility] [place] Last Admin: 09/19/18 10:51 Dose: 40 mg Polyethylene Glycol (Miralax (For Daily Use) -) 17 gm PO DAILY [facility] Last Admin: 09/19/18 10:58 Dose: 17 grams Pramipexole Dihydrochloride (Mirapex -) 0.25 mg PO TID [facility] Last Admin: 09/19/18 05:51 Dose: 0.25 mg Psyllium Hydrophilic Mucilloid (Metamucil (Sugar-Free) -) 5.85 gm PO DAILY [facility] Last Admin: 09/19/18 10:51 Dose: 5.85 gm Sumatriptan Succinate (Imitrex -) 25 mg PO DAILY PRN PRN Reason: HEADACHE Last Admin: 09/17/18 23:14 Dose: 25 mg Topiramate (Topamax -) 50 mg PO DAILY [facility] [place] Last Admin: 09/19/18 10:51 Dose: 50 mg Gen: NAD at rest Heart: RRR Lung: decreased breath sounds at the bases Abd: soft, nontender Ext: no edema A/P Pneumonia r/o Lung Mass Chronic Diarrhea Depression RLS - completed antibiotics - will need short term f/u of CT chest in 4-6 weeks to ensure resolution of infiltrate - DVT prophylaxis - No Pulmonary contraindication for D/C Dr Al
--- NOTE | 2018-09-19 13:33 | DS ---
Physical Examination Vital Signs: Vital Signs Temperature 98.3 F 09/19/18 10:13 Pulse Rate 78 09/19/18 10:13 Respiratory Rate 20 09/19/18 10:13 Blood Pressure 153/85 09/19/18 10:13 O2 Sat by Pulse Oximetry (%) 95 09/19/18 10:13 Findings/Remarks: Feels better sitting in chair denies pain no fever no cough no abd pain gi f/u noted Constitutional: Yes: No Distress, Calm Eyes: Yes: Conjunctiva Clear Neck: Yes: Supple Cardiovascular: Yes: Regular Rate and Rhythm Respiratory: Yes: CTA Bilaterally Gastrointestinal: Yes: Normal Bowel Sounds, Soft Edema: No Labs: CBC, BMP 09/18/18 06:00 09/18/18 06:00 Discharge Summary Reason For Visit: HEADACHE/SYNCOPE/PNEUMONIA Current Active Problems Colon polyp, hyperplastic (Acute) Diarrhea (Acute) Diverticula of colon (Acute) Headache (Acute) Incontinence of feces (Acute) Nausea & vomiting (Acute) PNA (pneumonia) (Acute) Syncope (Acute) Hospital Course: admitted for pneumonia / diarrhea treated with abx gi / pulmonary followed ct chest -left lower lobe density/ infiltrate colonoscopy done - biopsies taken paradoxical diarrhea now better discussed in detail with pt. Pt in agreement with all above. will d/c today with high fibre diet and miralax daily repeat ct chest in 3-4 weeks f/u in office in few days Pt in agreement with all above Discussed with nursing staff also. Miralax send to pharmacy D/c time approx 30 min in examining/ documenting and coordating care. - Instructions Referrals: Zahra Aviles MD [Primary Care Provider] - Jovi Moreno MD [Staff Physician] - Disposition: HOME - Home Medications Comprehensive Discharge Medication List: Ambulatory Orders Aspirin 81 mg PO DAILY 03/03/14 Pramipexole Dihydrochloride [Mirapex -] 0.25 mg PO TID 03/03/14 Rosuvastatin Calcium [Crestor] 10 mg PO DAILY 03/03/14 Topiramate 50 mg PO DAILY 03/03/14 Fish Oil/Borage/Flax/Om3,6,9 1 [[place] 3-6-9 1,200 mg Softgel] 1 cap PO DAILY Omeprazole 20 mg PO DAILY 02/03/18 Sitagliptin Phos/Metformin HCl [Janumet 50-500 mg Tablet] 2 tab PO BID 02/03/18 Lisinopril 10 mg PO ASDIR 09/03/18 Polyethylene Glycol 3350 [Miralax 119 gm Btl -] 17 gm PO DAILY 30 Days #1 bottle 09/19/18
[2018-09-19] MEDS ORDERED: PT OWN MED DRAWER 7, Y5N ONE (13:43)
[2018-09-19 14:22] VITALS: TEMP 98.7
[2018-09-19 14:26] VITALS: BP 157/78; PULSE 73
--- NOTE | 2018-09-19 15:01 | PN ---
Progress Note, Physician History of Present Illness: stable dong well had colonoscopy done - Current Medication List Current Medications: Active Medications Acetaminophen (Tylenol -) 650 mg PO Q4H PRN PRN Reason: PAIN Last Admin: 09/18/18 16:09 Dose: 650 mg Aspirin (Ecotrin -) 81 mg PO DAILY [facility] Last Admin: 09/19/18 10:51 Dose: 81 mg Cholestyramine Resin (Questran Light Packet -) 4 gm PO DAILY [facility] Last Admin: 09/19/18 10:51 Dose: 4 gm Sodium Chloride (Normal Saline -) 1,000 mls @ 75 mls/hr IV ASDIR YESI Last Admin: 09/19/18 11:18 Dose: 75 mls/hr Insulin Aspart (Novolog Vial Sliding Scale -) 1 vial SQ ACHS [facility]; Protocol Last Admin: 09/19/18 12:05 Dose: 2 units Lactobacillus Acidophilus (Bacid -) 1 tab PO DAILY [facility] Last Admin: 09/19/18 10:51 Dose: 1 tab Multivitamins/Minerals (Theragran-M) 1 each PO DAILY [facility] Last Admin: 09/19/18 10:51 Dose: 1 each Ondansetron HCl (Zofran Injection) 4 mg IVPUSH Q6H PRN PRN Reason: NAUSEA Last Admin: 09/12/18 13:51 Dose: 4 mg Pantoprazole Sodium (Protonix -) 40 mg PO DAILY [facility] Last Admin: 09/19/18 10:51 Dose: 40 mg Polyethylene Glycol (Miralax (For Daily Use) -) 17 gm PO DAILY [facility] Last Admin: 09/19/18 10:58 Dose: 17 grams Pramipexole Dihydrochloride (Mirapex -) 0.25 mg PO TID [facility] Last Admin: 09/19/18 13:45 Dose: 0.25 mg Psyllium Hydrophilic Mucilloid (Metamucil (Sugar-Free) -) 5.85 gm PO DAILY [facility] Last Admin: 09/19/18 10:51 Dose: 5.85 gm Sumatriptan Succinate (Imitrex -) 25 mg PO DAILY PRN PRN Reason: HEADACHE Last Admin: 09/17/18 23:14 Dose: 25 mg Topiramate (Topamax -) 50 mg PO DAILY [facility] Last Admin: 09/19/18 10:51 Dose: 50 mg - Objective Vital Signs: Vital Signs Temperature 98.7 F 09/19/18 14:20 Pulse Rate 73 09/19/18 14:20 Respiratory Rate 20 09/19/18 14:20 Blood Pressure 157/78 09/19/18 14:20 O2 Sat by Pulse Oximetry (%) 95 09/19/18 10:13 Constitutional: Yes: No Distress, Calm Cardiovascular: Yes: Regular Rate and Rhythm Respiratory: Yes: Regular, CTA Bilaterally Gastrointestinal: Yes: Normal Bowel Sounds, Soft Musculoskeletal: Yes: WNL Extremities: Yes: WNL Neurological: Yes: Alert, Oriented Psychiatric: Yes: Alert, Oriented Labs: CBC, BMP 09/18/18 06:00 09/18/18 06:00 Assessment/Plan 1 r/o malignancy of the lung 2 dirrhoea 3 weight loss 4 fever 5 dm\ 6 pna plan off of all abx doing well will need to follow up rest as per the team
[2018-09-23 14:15] LABS: VASOACTIVE INTEST, POLYPEPTIDE 22.4 pg/mL (0.0-58.8)
[2018-09-23 16:01] LABS: 5-HIAA PLASMA 6.4
--- NOTE | 2018-09-23 18:25 | PATH ---
Surgical Pathology Report Patient Name: CLEMENT CORRALES [facility]. Rec. #: [id number] /Age/Gender: 1955 (Age: 63) / F Account: [id number] Location: [address] [place] [address] Taken: 09/18/2018 Received: 09/21/2018 Reported: 09/23/2018 Physicians: Geraldine Guaman M.D. Specimen(s) Received A: BX ILEUM B: BX CECAL POLYP C: BX CECUM Clinical History Refractory diarrhea Postoperative diagnosis: Diverticulosis, cecal polyp Final Diagnosis A. Ileum, biopsy: Ileal mucosa with prominent lymphoid aggregates. B. Cecum, polyp, biopsy: Tubular adenoma. C. Cecum, biopsy: Cecum with prominent lymphoid aggregates. Electronically Signed Cristine Mckenzie M.D. Gross Description A. Received in formalin, labeled "biopsy ileum" are 2 neal, irregular portions of soft tissue measuring 0.4 and 0.5 cm. in greatest dimension. The specimens are submitted in toto in one cassette. B. Received in formalin, labeled "biopsy polyp cecum" is a neal, irregular portion of soft tissue measuring 0.3 cm. in greatest dimension. The specimen is submitted in toto in one cassette. C. Received in formalin, labeled "biopsy cecum" are 2 neal, irregular portions of soft tissue averaging 0.3 cm. in greatest dimension. The specimens are submitted in toto in one cassette. 09/21/201809/21/2018
== END 2018-09-19 15:18 | disposition home or self-care (01) | DRG 139 ==
LOC: JER 16:04 → JERBED 21:38 → J6S 09-12 03:13
PROVIDERS: ADMIT Internal Medicine; ATTEND Internal Medicine
PROC: 0DBH8ZX Excision of Cecum, Via Natural or Artificial Opening Endoscopic, Diagnostic (ICD-10-PCS; principal; 2018-09-18 14:15)
DX: J18.9 Pneumonia, unspecified organism (principal); E87.1 Hypo-osmolality and hyponatremia; E83.42 Hypomagnesemia; R55 Syncope and collapse; E11.40 Type 2 diabetes mellitus with diabetic neuropathy, unspecified; G25.81 Restless legs syndrome; E11.65 Type 2 diabetes mellitus with hyperglycemia; E66.3 Overweight; E78.5 Hyperlipidemia, unspecified; G43.909 Migraine, unspecified, not intractable, without status migrainosus; R19.7 Diarrhea, unspecified; F32.9 Major depressive disorder, single episode, unspecified; J45.909 Unspecified asthma, uncomplicated; R15.9 Full incontinence of feces; F39 Unspecified mood [affective] disorder; K57.90 Diverticulosis of intestine, part unspecified, without perforation or abscess without bleeding; K63.5 Polyp of colon; R63.4 Abnormal weight loss; Z68.32 Body mass index [BMI] 32.0-32.9, adult
CPT/HCPCS: 36415; 70450-TC; 71045-TC-FY; 71250-TC; 74019-TC-FY; 74177-TC; 76705-TC; 80048; 80053; 80061; 81003; 82009; 82550; 82656; 82803; 82962; 83036; 83497; 83516; 83519; 83631; 83690; 83721; 83735; 83930; 83935; 84100; 84155; 84165; 84300; 84484; 84586; 84999; 85025; 85027; 85651; 85730; 86140; 86480; 87045; 87046; 87177; 87209; 87324; 87449; 87899; 88305-TC; 90688; 90732; 93005; 93010; 93306-TC; 93970-TC; 94640; 99285-25; G0008; G0009; J0131; J7030

== ENCOUNTER 2019-01-20 18:08 | Emergency (ER) | payer OTHER ==
--- NOTE | 2019-01-20 18:14 | PDOC ---
Rapid Medical Evaluation Time Seen by Provider: 01/20/19 18:11 Medical Evaluation: Allergies Allergy/AdvReac Type Severity Reaction Status Date / Time No Known Allergies Allergy Verified 01/20/19 18:12 01/20/19 18:12 I have performed a brief in-person evaluation of this patient. The patient presents with a chief complaint of: head trauma Pertinent physical exam findings: periorbital ecchymosis- resolving. -Medina sign. Forehead hematoma I have ordered the following: CTH The patient will proceed to the ED for further evaluation. Discharge Disposition - Diagnosis Head trauma - Referrals - Patient Instructions - Post Discharge Activity
[2019-01-20 18:15] VITALS: BMI 32.3
--- NOTE | 2019-01-20 20:09 | PDOC ---
*Physical Exam - Vital Signs Last Vital Signs Temp Pulse Resp BP Pulse Ox 98.3 F 100 H 18 179/89 H 99 01/20/19 18:12 01/20/19 18:12 01/20/19 18:12 01/20/19 18:12 01/20/19 18:12 Medical Decision Making - Medical Decision Making 01/20/19 20:09 Patient seen by the advanced practice provider under my direct supervision. Ancillary testing reviewed as necessary. I agree with plan as outlined by the advanced practice provider. *DC/Admit/Observation/Transfer Diagnosis at time of Disposition: Head trauma - Referrals Referrals: Zahra Aviles MD [Primary Care Provider] - - Patient Instructions - Post Discharge Activity
[2019-01-20] MEDS ORDERED: PROCHLORPERAZINE INJECTION 10 MG/2 ML VIAL IVPB ONE (20:39)
[2019-01-20] MEDS ORDERED: ACETAMINOPHEN 1000 MG/100 ML VIAL (NON FORMULARY) IVPB ONE (20:39)
[2019-01-20] MEDS ORDERED: SODIUM CHLORIDE 1,000 ML IV STA (20:39)
[2019-01-20] MEDS ORDERED: PROCHLORPERAZINE INJECTION 10 MG/2 ML VIAL ONE (20:58)
[2019-01-20] MEDS ORDERED: ACETAMINOPHEN INJECTION 100 ML IVPB ONE (20:59)
--- NOTE | 2019-01-20 21:07 | PDOC ---
History of Present Illness - General Chief Complaint: Injury Stated Complaint: FALL/INJURY Time Seen by Provider: 01/20/19 18:11 History Source: Patient Exam Limitations: No Limitations Past History - Past Medical History Allergies/Adverse Reactions: Allergies Allergy/AdvReac Type Severity Reaction Status Date / Time No Known Allergies Allergy Verified 01/20/19 18:12 Home Medications: Ambulatory Orders Aspirin 81 mg PO DAILY 03/03/14 Pramipexole Dihydrochloride [Mirapex -] 0.25 mg PO TID 03/03/14 Rosuvastatin Calcium [Crestor] 10 mg PO DAILY 03/03/14 Topiramate 50 mg PO DAILY 03/03/14 Fish Oil/Borage/Flax/Om3,6,9 1 [[place] 3-6-9 1,200 mg Softgel] 1 cap PO DAILY Omeprazole 20 mg PO DAILY 02/03/18 Sitagliptin Phos/Metformin HCl [Janumet 50-500 mg Tablet] 2 tab PO BID 02/03/18 Lisinopril 10 mg PO ASDIR 09/03/18 Polyethylene Glycol 3350 [Miralax 119 gm Btl -] 17 gm PO DAILY 30 Days #1 bottle 09/19/18 Anemia: No Asthma: Yes Cancer: No Cardiac Disorders: Yes (MVP) CVA: No COPD: No DVT: No Dementia: No Diabetes: Yes (NIDDM) Dialysis: No GI Disorders: No Disorders: No HTN: No Hypercholesterolemia: Yes Kidney Stones: No Liver Disease: No Psychiatric Problems: No Seizures: No Thyroid Disease: No Lung CA: No - Surgical History Abdominal Surgery: No Appendectomy: No Cardiac Surgery: No Cholecystectomy: Yes (LAPAROSCOPIC) Gastric Stapling: No GI Surgery: No Lung Surgery: No Neurologic Surgery: No Orthopedic Surgery: Yes (RIGHT SHOULDER SURGERY) - Family Disease History Family Disease History: Heart Disease: Father - Immunization History Immunization Up to Date: Yes - Suicide/Smoking/Psychosocial Hx Smoking Status: No Smoking History: Never smoked Years of Tobacco Use: 0 Have you smoked in the past 12 months: Yes Number of Cigarettes Smoked Daily: 2 If you are a former smoker, when did you quit?: years ago 'Breaking Loose' booklet given: 03/03/14 Hx Alcohol Use: No Drug/Substance Use Hx: No Substance Use Type: None Hx Substance Use Treatment: No *Physical Exam - Vital Signs Last Vital Signs Temp Pulse Resp BP Pulse Ox 98.3 F 100 H 18 179/89 H 99 01/20/19 18:12 01/20/19 18:12 01/20/19 18:12 01/20/19 18:12 01/20/19 18:12 - Physical Exam General Appearance: No: Apparent Distress HEENT: positive: Other (Small swelling along forehead, ecchymosis between eyes, no nasal bone TTP, no epistaxis, neg Racoons sign, neg Medina sign) Neck: positive: Supple. negative: Tender midline Respiratory/Chest: positive: Lungs Clear, Normal Breath Sounds. negative: Respiratory Distress Cardiovascular: positive: Regular Rhythm, Regular Rate, S1, S2. 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 States she tripped over step, falling forward, hitting head. Denies LOC. Mentions had a KIRK that day but took Tylenol and felt fine. The next day she noticed worsening KIRK, lightheadedness and had occasional NBNB emesis. KIRK grew gradually worse with time. Denies sob, cp, abd pain, numbness/tingling/weakness of extremities, neck pain. Patient is not on blood thinners CT head and CT facial bones negative Likely concussion Plan: IVF, Tylenol, Compazine, reassess 01/20/19 21:05 Patient reassessed and feeling a lot better Stable for discharge 01/20/19 22:26 *DC/Admit/Observation/Transfer Diagnosis at time of Disposition: Concussion Qualifiers: Encounter type: initial encounter Loss of consciousness presence/duration: without LOC Qualified Code(s): S06.0X0A - Concussion without loss of consciousness, initial encounter - Discharge Dispostion Disposition: HOME Condition at time of disposition: Improved Decision to Admit order: No - Referrals Referrals: Zahra Aviles MD [Primary Care Provider] - 2 Days - Patient Instructions Printed Discharge Instructions: DI for Closed Head Injury, DI for Concussion Additional Instructions: Thank you for choosing [facility]. It was a pleasure taking care of you. Your CT scan of head and facial bones were normal Likely you had concussion Recommend rest for next few days Follow-up with your regular doctor in 2-3 days Return to the Emergency Department if your symptoms worsen or persist, you have severe headache, vomiting, weakness of extremities (arms and/or legs), changes in vision or walking or other concerning symptoms. - Post Discharge Activity
[2019-01-20 22:49] VITALS: BP 134/61; PULSE 60; TEMP 98.1
== END 2019-01-20 22:50 | disposition home or self-care (01) ==
LOC: JER 18:08
PROC: 3E033GC Introduction of Other Therapeutic Substance into Peripheral Vein, Percutaneous Approach (ICD-10-PCS; principal; 2019-01-20)
PROC: 3E033NZ Introduction of Analgesics, Hypnotics, Sedatives into Peripheral Vein, Percutaneous Approach (ICD-10-PCS; 2019-01-20)
DX: S06.0X0A Concussion without loss of consciousness, initial encounter (principal); W10.8XXA Fall (on) (from) other stairs and steps, initial encounter; Y93.89 Activity, other specified; Y92.038 Other place in apartment as the place of occurrence of the external cause; Y99.8 Other external cause status; I10 Essential (primary) hypertension; E11.9 Type 2 diabetes mellitus without complications; Z79.84 Long term (current) use of oral hypoglycemic drugs; E78.00 Pure hypercholesterolemia, unspecified; I34.1 Nonrheumatic mitral (valve) prolapse; G25.81 Restless legs syndrome; J45.909 Unspecified asthma, uncomplicated
CPT/HCPCS: 70450-TC; 70486-TC; 99282-25; J0131; J7030

== ENCOUNTER 2019-02-01 13:06 | Inpatient (IN) | payer OTHER ==
[2019-02-01] MEDS ORDERED: ALBUTEROL SO4 0.083% IH SOL 2.5 MG/3 ML VIAL.NEB. NEB ONE ×2 (13:54→14:27)
[2019-02-01] MEDS ORDERED: ASPIRIN 81 MG CHEWABLE TABLETS PO SCH (14:00)
--- NOTE | 2019-02-01 14:02 | PDOC ---
History of Present Illness - General Chief Complaint: Shortness of Breath Stated Complaint: DIFFICULTY BREATHING Time Seen by Provider: 02/01/19 13:28 History Source: Patient - History of Present Illness Initial Comments: 02/01/19 13:56 Patient is a 63 y/o female with a history of DM, HLD, HTN, migraines, anxiety and depression who is here for SOB. She reports she started having a cough, fever, and chills on . Since then her cough has been worsening, she is having trouble sleeping and she is feeling short of breath while walking and at rest. She was diagnosed with pneumonia and in the hospital a few months ago. She was also in the hospital recently for a headache which was diagnosed as likely concussion. She does not smoke. She also complains of urinary urgency with her cough. She has tried home medications but nothing is helping. Denies chest pain, nausea, or dysuria. Past History - Past Medical History Allergies/Adverse Reactions: Allergies Allergy/AdvReac Type Severity Reaction Status Date / Time No Known Allergies Allergy Verified 02/01/19 13:12 Home Medications: Ambulatory Orders Aspirin 81 mg PO DAILY 03/03/14 Pramipexole Dihydrochloride [Mirapex -] 0.25 mg PO TID 03/03/14 Rosuvastatin Calcium [Crestor] 10 mg PO DAILY 03/03/14 Topiramate 50 mg PO DAILY 03/03/14 Fish Oil/Borage/Flax/Om3,6,9 1 [[place] 3-6-9 1,200 mg Softgel] 1 cap PO DAILY Omeprazole 20 mg PO DAILY 02/03/18 Sitagliptin Phos/Metformin HCl [Janumet 50-500 mg Tablet] 2 tab PO BID 02/03/18 Lisinopril 10 mg PO ASDIR 09/03/18 Polyethylene Glycol 3350 [Miralax 119 gm Btl -] 17 gm PO DAILY 30 Days #1 bottle 09/19/18 Anemia: No Asthma: Yes Cancer: No Cardiac Disorders: Yes (MVP) CVA: No COPD: No DVT: No Dementia: No Diabetes: Yes (NIDDM) Dialysis: No GI Disorders: No Disorders: No HTN: No Hypercholesterolemia: Yes Kidney Stones: No Liver Disease: No Psychiatric Problems: No Seizures: No Thyroid Disease: No Lung CA: No - Surgical History Abdominal Surgery: No Appendectomy: No Cardiac Surgery: No Cholecystectomy: Yes (LAPAROSCOPIC) Gastric Stapling: No GI Surgery: No Lung Surgery: No Neurologic Surgery: No Orthopedic Surgery: Yes (RIGHT SHOULDER SURGERY) - Family Disease History Family Disease History: Heart Disease: Father - Immunization History Td Vaccination: Yes TDAP Vaccination: Yes Immunization Up to Date: Yes - Suicide/Smoking/Psychosocial Hx Smoking Status: No Smoking History: Never smoked Years of Tobacco Use: 0 Have you smoked in the past 12 months: Yes Number of Cigarettes Smoked Daily: 2 If you are a former smoker, when did you quit?: years ago 'Breaking Loose' booklet given: 03/03/14 Hx Alcohol Use: No Drug/Substance Use Hx: No Substance Use Type: None Hx Substance Use Treatment: No Review of Systems - Review of Systems Constitutional: Yes: Chills, Fever Respiratory: Yes: Cough, Shortness of Breath Cardiac (ROS): Yes: Chest Tightness ABD/GI: Yes: Diarrhea. No: Constipated, Nausea : Yes: Urgency. No: Burning, Dysuria *Physical Exam - Vital Signs Last Vital Signs Temp Pulse Resp BP Pulse Ox 99.6 F 105 H 24 H 151/75 96 02/01/19 13:12 02/01/19 13:12 02/01/19 13:12 02/01/19 13:12 02/01/19 13:12 - Physical Exam Comments: 02/01/19 14:04 GENERAL: A&O x3, tearful throughout interview HEENT: non erythematous throat HEART: RRR, no murmurs, rubs, or gallops LUNGS: inspiratory wheezing, rhonchi, coughing throughout exam ABDOMEN: soft, diffusely nontender, nondistended EXTREMITIES: non pitting edema SKIN: without rashes or ulcers ED Treatment Course - LABORATORY CBC & Chemistry Diagram: 02/01/19 14:16 02/01/19 14:16 - RADIOLOGY Radiology Studies Ordered: Category Date Time Status CXRPORT [CHEST X-RAY PORTABLE*] [RAD] Stat Radiology 02/01/19 13:53 Ordered Medical Decision Making - Medical Decision Making 02/01/19 14:14 rectal temperature of 104, f/u imaging, labs, albuterol treatment and aspirin 02/01/19 15:55 WBC 16, CXR suspicious for PNA, start azithromycin and Ceftriaxone , call for admission *DC/Admit/Observation/Transfer Diagnosis at time of Disposition: Pneumonia Qualifiers: Pneumonia type: due to unspecified organism Laterality: left Lung location: lower lobe of lung Qualified Code(s): J18.1 - Lobar pneumonia, unspecified organism - Discharge Dispostion Decision to Admit order: Yes - Referrals - Patient Instructions - Post Discharge Activity
[2019-02-01] MEDS ORDERED: SODIUM CHLORIDE 1,000 ML IV STA (14:09)
[2019-02-01] MEDS ORDERED: ACETAMINOPHEN INJECTION 100 ML IVPB ONE (14:13)
[2019-02-01] MEDS ORDERED: ASPIRIN 81 MG CHEWABLE TABLETS ONE (14:27)
[2019-02-01] MEDS ORDERED: ACETAMINOPHEN 1000 MG/100 ML VIAL (NON FORMULARY) IVPB ONE (14:28)
[2019-02-01 14:33] LABS: HEMATOCRIT 37.8 % (32.4-45.2); HEMOGLOBIN 12.9 GM/dL (10.7-15.3); MCH 29.5 pg (25.7-33.7); MCHC 34.2 g/dl (32.0-36.0); MEAN CELL VOLUME 86.1 fl (80-96); MEAN PLT VOLUME 9.2 fl (7.5-11.1); PLATELET COUNT 248 K/MM3 (134-434); RBC 4.39 M/mm3 (3.60-5.2); RDW 13.2 % (11.6-15.6); WHITE BLOOD COUNT 16.6 K/mm3 (4.0-10.0)
--- NOTE | 2019-02-01 14:33 | PDOC ---
Attending Attestation - Resident Resident Name: MagdyCristine - ED Attending Attestation I have performed the following: I have examined & evaluated the patient, The case was reviewed & discussed with the resident, I agree w/resident's findings & plan - HPI HPI: 02/01/19 14:30 63-year-old female with history of asthma, hypertension, diabetes, recent pneumonia 3-4 months ago presents now with acute on chronic cough associated with dyspnea on exertion and subjective fevers and chills. - Physicial Exam PE: 02/01/19 14:30 Febrile 103 rectally, tachypnea, tachycardic, O2 sat ranges 95 200% on room air Alert seated in stretcher, frequent coarse cough, speaks about 6 word sentences No JVD Heart is regular slight tachycardia, lungs have coarse breath sounds at both bases with inspiratory and expiratory wheezing at the bases, slightly prolonged expiration Abdomen is benign Bilateral nonpitting edema without calf tenderness - Critical Care Time Total Critical Care Time: 30 Critical Care Statement: The care of this patient involved high complexity decision making to prevent further life threatening deterioration of the patient 's condition and/or to evaluate & treat vital organ system(s) failure or risk of failure. - Medical Decision Making 02/01/19 14:31 63-year-old female with history of asthma, hypertension/diabetes, recent pneumonia presents with febrile illness and worsening respiratory status the last few days. Presentation concerning for pneumonia versus URI, rule out influenza, with superimposed asthma exacerbation. Rule out primary cardiac etiology. Sepsis protocol initiated Nebulizers and supplemental oxygen given moderate respiratory distress Antipyretics, chest x-ray, EKG Antibiotics as indicated Reassess, likely admission Heart Score/ECG Review #1 ECG reviewed & interpreted by me at: 13:56 General ECG Interpretation: Sinus Rhythm, Normal Rate (98), Normal Intervals ( qtc 428), No acute ischemic changes
[2019-02-01 14:46] LABS: INR 1.26 (0.83-1.09); PROTHROMBIN TIME (PATIENT) 14.9 SEC (9.7-13.0)
[2019-02-01 14:49] LABS: ACTIVATED PTT 29.9 SECONDS (25.2-36.5)
[2019-02-01 15:00] LABS: ALBUMIN 3.2 g/dl (3.4-5.0); ALK PHOS 114 U/L (45-117); ANION GAP 6 MMOL/L (8-16); BILIRUBIN,TOTAL 0.4 mg/dL (0.2-1); BLOOD UREA NITROGEN 7 mg/dL (7-18); CALCIUM 8.6 mg/dL (8.5-10.1); CHLORIDE 100 mmol/L (98-107); CO2 28 mmol/L (21-32); CREATININE 0.8 mg/dL (0.55-1.3); GLUCOSE,RANDOM 196 mg/dL (74-106); N-TERMINAL BNP 241.4 pg/ml (5-125); SGOT/AST 11 U/L (15-37); SGPT/ALT 21 U/L (13-61); SODIUM 134 mmol/L (136-145); TOT PROT 7.1 g/dl (6.4-8.2)
[2019-02-01] MEDS ORDERED: CEFTRIAXONE 1 GM in DEXTROSE 5%-WATER - 100 ML IVPB ONE (15:51)
[2019-02-01] MEDS ORDERED: AZITHROMYCIN IVPB 500 MG in DEXTROSE 5%-WATER - 250 ML IVPB SCH (16:00)
[2019-02-01] MEDS ORDERED: CEFTRIAXONE 1 GM/50 ML BAG ONE (16:50)
[2019-02-01] MEDS ORDERED: AZITHROMYCIN IVPB 500 MG/250 ML BAG IVPB ONE (16:50)
[2019-02-01] MEDS ORDERED: ALBUTEROL SO4 2.5/IPRATROPIUM 0.5 INH SOL 3 ML VIAL.NEB. NEB PRN (17:57)
--- NOTE | 2019-02-01 18:02 | HP ---
Admitting History and Physical - Primary Care Physician PCP: Zahra Aviles - Admission History of Present Illness: patient seen and examined in the emergency room chart reviewed In summary 63-year-old female with history of asthma, hypertension, diabetes, recent pneumonia 3-4 months ago presents now with acute on chronic cough associated with dyspnea on exertion and subjective fevers and chills. 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 History of Recent Travel: No Home Medications - Allergies Allergies/Adverse Reactions: Allergies Allergy/AdvReac Type Severity Reaction Status Date / Time No Known Allergies Allergy Verified 02/01/19 13:12 - Home Medications Home Medications: Ambulatory Orders Aspirin 81 mg PO DAILY 03/03/14 Pramipexole Dihydrochloride [Mirapex -] 0.25 mg PO TID 03/03/14 Rosuvastatin Calcium [Crestor] 10 mg PO DAILY 03/03/14 Topiramate 50 mg PO DAILY 03/03/14 Fish Oil/Borage/Flax/Om3,6,9 1 [[place] 3-6-9 1,200 mg Softgel] 1 cap PO DAILY Omeprazole 20 mg PO DAILY 02/03/18 Sitagliptin Phos/Metformin HCl [Janumet 50-500 mg Tablet] 2 tab PO BID 03/27/18 Lisinopril 10 mg PO ASDIR 09/03/18 Polyethylene Glycol 3350 [Miralax 119 gm Btl -] 17 gm PO DAILY 30 Days #1 bottle 09/19/18 Family Disease History - Family Disease History Family Disease History: Diabetes: Mother, Other: Father ( MVA), Brother ( drowned), Son (seizure) Review of Systems - Review of Systems Constitutional: reports: Fever, Weakness Eyes: reports: No Symptoms HENT: reports: No Symptoms Neck: reports: No Symptoms Cardiovascular: reports: No Symptoms Respiratory: reports: Cough, SOB Gastrointestinal: reports: No Symptoms Genitourinary: reports: No Symptoms Neurological: reports: No Symptoms Psychiatric: reports: Anxiety Physical Examination Vital Signs: Vital Signs Temperature 103.9 F H 02/01/19 14:35 Pulse Rate 105 H 02/01/19 13:12 Respiratory Rate 24 H 02/01/19 13:12 Blood Pressure 151/75 02/01/19 13:12 O2 Sat by Pulse Oximetry (%) 100 02/01/19 14:35 Constitutional: Yes: No Distress, Anxious Eyes: Yes: Conjunctiva Clear Neck: Yes: Supple Cardiovascular: Yes: Regular Rate and Rhythm Respiratory: Yes: Rhonchi Gastrointestinal: Yes: Soft, Abdomen, Obese Edema: No Neurological: Yes: Alert Labs: CBC, BMP 02/01/19 14:16 02/01/19 14:16 Imaging - Results Chest X-ray: Report Reviewed Problem List - Problems (1) PNA (pneumonia) Code(s): J18.9 - PNEUMONIA, UNSPECIFIED ORGANISM Qualifiers: Pneumonia type: due to unspecified organism Laterality: left Lung location: lower lobe of lung Qualified Code(s): J18.1 - Lobar pneumonia, unspecified organism (2) Diabetes Code(s): E11.9 - TYPE 2 DIABETES MELLITUS WITHOUT COMPLICATIONS (3) Fever Code(s): R50.9 - FEVER, UNSPECIFIED Assessment/Plan Persistent Pneumonia diabetes abx nebulizer treatment repeat ct chest pulmonary/ i/d consults dvt prophylaxis check legionella/ mycoplasma monitor bgm will follow.
[2019-02-01] MEDS ORDERED: PT OWN MED DRAWER 7, Y5N ONE (20:17)
[2019-02-01] MEDS: ACETAMINOPHEN 325 MG TABLET (FP) PO PRN (20:42)
[2019-02-01] MEDS ORDERED: SODIUM CHLORIDE NASAL SPRAY 44 ML BOTTLE NS PRN (21:20)
[2019-02-01] MEDS ORDERED: OXYMETAZOLINE 0.05% NASAL SOLUTION 15 ML BOTTLE NS ONE (21:20)
[2019-02-01] MEDS: LISINOPRIL 10 MG TABLET (FP) PO SCH (22:05)
[2019-02-01] MEDS: ROSUVASTATIN CA 10 MG TABLET (FP) PO SCH (22:05)
[2019-02-01] MEDS: PRAMIPEXOLE DIHYDROCHLORIDE 0.25 MG TABLET PO SCH (22:05)
[2019-02-01] MEDS: INSULIN (LEVEMIR) 100 UNITS/ML UNITS SQ SCH (22:06)
[2019-02-01] MEDS ORDERED: KETOROLAC TROMETHAMINE 15 MG/ML VIAL IVPUSH ONE (22:30)
[2019-02-01] MEDS: HEPARIN NA (PORCINE) 5,000 UNITS/ML 1ML VIAL SQ SCH (23:00)
[2019-02-02 00:50] VITALS: BMI 32.5
[2019-02-02] MEDS: ACETAMINOPHEN 325 MG TABLET (FP) PO PRN (05:18)
[2019-02-02] MEDS: INSULIN SLIDING SCALE (NOVOLOG) 1 VIAL SQ SCH ×2 (06:43→17:09)
[2019-02-02] MEDS: PRAMIPEXOLE DIHYDROCHLORIDE 0.25 MG TABLET PO SCH ×3 (06:44→21:40)
[2019-02-02 08:24] LABS: BASO % 0.3 % (0-2.0); EOS % 0.4 % (0-4.5); HEMATOCRIT 35.5 % (32.4-45.2); LYMPH % 12.5 % (8-40); MCHC 33.8 g/dl (32.0-36.0); MEAN CELL VOLUME 85.6 fl (80-96); MEAN PLT VOLUME 9.4 fl (7.5-11.1); MONO % 7.9 % (3.8-10.2); NEUT % 78.9 % (42.8-82.8); PLATELET COUNT 248 K/MM3 (134-434); RBC 4.14 M/mm3 (3.60-5.2); RDW 13.4 % (11.6-15.6); WHITE BLOOD COUNT 15.8 K/mm3 (4.0-10.0)
[2019-02-02 08:44] LABS: ALBUMIN 2.7 g/dl (3.4-5.0); ALK PHOS 108 U/L (45-117); ANION GAP 7 MMOL/L (8-16); BILIRUBIN,TOTAL 0.6 mg/dL (0.2-1); BLOOD UREA NITROGEN 7 mg/dL (7-18); CALCIUM 7.8 mg/dL (8.5-10.1); CHLORIDE 101 mmol/L (98-107); CO2 28 mmol/L (21-32); CREATININE 0.8 mg/dL (0.55-1.3); GLUCOSE,RANDOM 174 mg/dL (74-106); POTASSIUM 3.7 mmol/L (3.5-5.1); SGOT/AST 10 U/L (15-37); SGPT/ALT 18 U/L (13-61); SODIUM 136 mmol/L (136-145); TOT PROT 6.5 g/dl (6.4-8.2)
--- NOTE | 2019-02-02 09:23 | EKG ---
Test Reason : Blood Pressure : / mmHG Vent. Rate : 098 BPM Atrial Rate : 098 BPM P-R Int : 156 ms QRS Dur : 074 ms QT Int : 336 ms P-R-T Axes : 060 051 056 degrees QTc Int : 428 ms NORMAL SINUS RHYTHM NORMAL ECG WHEN COMPARED WITH ECG OF 11-SEP-2018 21:22, NO SIGNIFICANT CHANGE WAS FOUND Confirmed by MARK TURK MD ([id number]) on 02/02/2019 9:22:37 AM Referred By: Confirmed By:MARK TURK MD
[2019-02-02] MEDS ORDERED: PATIENT'S OWN MEDICATION (NON-FORMULARY) (Topiramate [Topiramate] 50 MG) PO SCH (10:00)
[2019-02-02] MEDS ORDERED: PATIENT'S OWN MEDICATION (NON-FORMULARY) (Omeprazole 20 MG) PO SCH (10:00)
[2019-02-02] MEDS: HEPARIN NA (PORCINE) 5,000 UNITS/ML 1ML VIAL SQ SCH ×2 (10:28→21:40)
[2019-02-02] MEDS: PANTOPRAZOLE 20 MG TABLET (FP) PO SCH (10:28)
[2019-02-02] MEDS: ASPIRIN 81 MG CHEWABLE TABLETS PO SCH (10:28)
[2019-02-02] MEDS: AZITHROMYCIN IVPB 500 MG/250 ML BAG IVPB SCH (10:39)
--- NOTE | 2019-02-02 11:30 | PN ---
Progress Note (short form) - Note Progress Note: Events noted SOB+ coughing+ Vital Signs - 24 hr 02/01/19 02/01/19 02/01/19 13:12 14:35 15:57 Temperature 99.6 F 103.9 F H Pulse Rate 105 H Pulse Rate [ Right] Respiratory 24 H Rate Blood Pressure 151/75 Blood Pressure [Right Arm] O2 Sat by Pulse 96 100 96 Oximetry (%) 02/01/19 02/01/19 02/01/19 17:20 20:30 21:00 Temperature 98.5 F 99.1 F 101.2 F H Pulse Rate 93 H 111 H Pulse Rate [ 78 Right] Respiratory 18 20 24 H Rate Blood Pressure 153/70 152/73 Blood Pressure 149/67 [Right Arm] O2 Sat by Pulse 96 96 Oximetry (%) 02/01/19 02/02/19 02/02/19 23:00 01:19 05:29 Temperature 99.3 F 98.0 F 98.2 F Pulse Rate 82 90 Pulse Rate [ Right] Respiratory 20 20 Rate Blood Pressure 142/64 155/60 Blood Pressure [Right Arm] O2 Sat by Pulse Oximetry (%) Current Medications Generic Name Dose Route Start Last Admin Trade Name Freq PRN Reason Stop Dose Admin Acetaminophen 650 mg 02/01/19 17:53 02/02/19 05:18 Tylenol - PO 650 mg Q4H PRN Administration PAIN LEVEL 1-5 Albuterol Sulfate 1 amp 02/02/19 11:31 Ventolin 0.083% Nebulizer Soln - NEB Q4H PRN SHORT OF BREATH/WHEEZING Albuterol/Ipratropium 1 amp 02/02/19 12:00 Duoneb - NEB RQID YESI Aspirin 81 mg 02/02/19 10:00 02/02/19 10:28 Asa - PO 81 mg DAILY YESI Administration Heparin Sodium (Porcine) 5,000 unit 02/01/19 22:00 02/02/19 10:28 Heparin - SQ 5,000 unit BID YESI Administration Azithromycin 500 mg in 250 mls @ 250 mls/hr 02/02/19 10:00 02/02/19 10:39 Zithromax 500mg Ivpb (Pre-Docked) IVPB 250 mls/hr DAILY YESI Administration Insulin Aspart 1 vial 02/02/19 07:00 02/02/19 06:43 Novolog Vial Sliding Scale - SQ Not Given BIDAC [facility] Protocol Insulin Detemir 10 units 02/01/19 22:00 02/01/19 22:06 Levemir Vial SQ 10 unit HS [facility] Administration Lisinopril 10 mg 02/01/19 18:00 02/01/19 22:05 Prinivil PO 10 mg ASDIR YESI Administration Methylprednisolone Sodium Succinate 40 mg 02/02/19 11:45 Solu-Medrol - IVPUSH 02/04/19 02:01 Q8H-IV YESI Pantoprazole Sodium 20 mg 02/02/19 10:00 02/02/19 10:28 Protonix - PO 20 mg DAILY YESI Administration Pramipexole Dihydrochloride 0.25 mg 02/01/19 22:00 02/02/19 06:44 Mirapex - PO 0.25 mg TID YESI Administration Rosuvastatin Calcium 10 mg 02/01/19 22:00 02/01/19 22:05 Crestor - PO 10 mg HS [facility] Administration Sodium Chloride 2 spray 02/01/19 21:20 [place] - NS BID PRN NASAL CONGESTION Topiramate 50 mg 02/02/19 10:00 Topamax - PO DAILY [facility] Laboratory Results - last 24 hr 02/01/19 02/01/19 02/01/19 14:16 14:16 14:16 WBC 16.6 H RBC 4.39 Hgb 12.9 Hct 37.8 MCV 86.1 MCH 29.5 MCHC 34.2 RDW 13.2 Plt Count 248 MPV 9.2 Absolute Neuts (auto) Neutrophils % Lymphocytes % Monocytes % Eosinophils % Basophils % Nucleated RBC % PT with INR INR PTT (Actin FS) Sodium 134 L Potassium 4.0 Chloride 100 Carbon Dioxide 28 Anion Gap 6 L BUN 7 Creatinine 0.8 Creat Clearance w eGFR 72.44 POC Glucometer Random Glucose 196 H Lactic Acid Calcium 8.6 Total Bilirubin 0.4 AST 11 L ALT 21 Alkaline Phosphatase 114 Creatine Kinase 80 Troponin I < 0.02 B-Natriuretic Peptide 241.4 H Total Protein 7.1 Albumin 3.2 L Influenza A (Rapid) Negative Influenza B (Rapid) Negative 02/01/19 02/01/19 02/01/19 14:16 14:16 21:03 WBC RBC Hgb Hct MCV MCH MCHC RDW Plt Count MPV Absolute Neuts (auto) Neutrophils % Lymphocytes % Monocytes % Eosinophils % Basophils % Nucleated RBC % PT with INR 14.90 H INR 1.26 H PTT (Actin FS) 29.9 Sodium Potassium Chloride Carbon Dioxide Anion Gap BUN Creatinine Creat Clearance w eGFR POC Glucometer 170 Random Glucose Lactic Acid 1.5 Calcium Total Bilirubin AST ALT Alkaline Phosphatase Creatine Kinase Troponin I B-Natriuretic Peptide Total Protein Albumin Influenza A (Rapid) Influenza B (Rapid) 02/02/19 02/02/19 02/02/19 06:41 07:57 07:57 WBC 15.8 H RBC 4.14 Hgb 12.0 Hct 35.5 MCV 85.6 MCH 29.0 MCHC 33.8 RDW 13.4 Plt Count 248 MPV 9.4 Absolute Neuts (auto) 12.5 H Neutrophils % 78.9 Lymphocytes % 12.5 D Monocytes % 7.9 Eosinophils % 0.4 D Basophils % 0.3 Nucleated RBC % 0 PT with INR INR PTT (Actin FS) Sodium 136 Potassium 3.7 Chloride 101 Carbon Dioxide 28 Anion Gap 7 L BUN 7 Creatinine 0.8 Creat Clearance w eGFR 72.44 POC Glucometer 181 Random Glucose 174 H Lactic Acid Calcium 7.8 L Total Bilirubin 0.6 AST 10 L ALT 18 Alkaline Phosphatase 108 Creatine Kinase Troponin I B-Natriuretic Peptide Total Protein 6.5 Albumin 2.7 L Influenza A (Rapid) Influenza B (Rapid) 02/02/19 11:48 WBC RBC Hgb Hct MCV MCH MCHC RDW Plt Count MPV Absolute Neuts (auto) Neutrophils % Lymphocytes % Monocytes % Eosinophils % Basophils % Nucleated RBC % PT with INR INR PTT (Actin FS) Sodium Potassium Chloride Carbon Dioxide Anion Gap BUN Creatinine Creat Clearance w eGFR POC Glucometer 209 Random Glucose Lactic Acid Calcium Total Bilirubin AST ALT Alkaline Phosphatase Creatine Kinase Troponin I B-Natriuretic Peptide Total Protein Albumin Influenza A (Rapid) Influenza B (Rapid) S1 s2 RRR Lungs ronchi+ Abd - soft, NT no edema PLAN Solumedrol Pulm eval noted iv antibiotics urine antigens negative continue with meds heparin sc for DVT prophylaxis Pt wants to travel to [place] on Friday as her elderly mother fell and she wants to care for her Problem List - Problems (1) Acute asthma exacerbation Code(s): J45.901 - UNSPECIFIED ASTHMA WITH (ACUTE) EXACERBATION (2) PNA (pneumonia) Code(s): J18.9 - PNEUMONIA, UNSPECIFIED ORGANISM Qualifiers: Pneumonia type: due to unspecified organism Laterality: left Lung location: lower lobe of lung Qualified Code(s): J18.1 - Lobar pneumonia, unspecified organism (3) Asthma Code(s): J45.909 - UNSPECIFIED ASTHMA, UNCOMPLICATED (4) Diabetes Code(s): E11.9 - TYPE 2 DIABETES MELLITUS WITHOUT COMPLICATIONS
[2019-02-02] MEDS ORDERED: ALBUTEROL SO4 0.083% IH SOL 2.5 MG/3 ML VIAL.NEB. NEB PRN (11:31)
--- NOTE | 2019-02-02 11:31 | CON.PULM ---
Consult Consult Specialty:: PULMONARY Referred by:: Dr Aviles Reason for Consultation:: pneumonia - History of Present Illness Chief Complaint: shortness of breath History of Present Illness: 63yo female with h/o HTN, DM, asthma, hyperlipidemia, anxiety/depression who was admitted with worsening shortness of breath x 3 days. Denies chest pain or palpitations but with subjective fevers and chills. +cough productive of green sputum as well as wheezing. Was hospitalized for pneumonia in September showing a mass like infiltrate in the LLL. CT chest done here not read yet but now with right basilar infiltrates with resolution of the left sided mass like infiltrate. She is a remote smoker. 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 History of Recent Travel: No Home Medications - Allergies Allergies/Adverse Reactions: Allergies Allergy/AdvReac Type Severity Reaction Status Date / Time No Known Allergies Allergy Verified 02/01/19 13:12 - Home Medications Home Medications: Ambulatory Orders Aspirin 81 mg PO DAILY 03/03/14 Pramipexole Dihydrochloride [Mirapex -] 0.25 mg PO TID 03/03/14 Rosuvastatin Calcium [Crestor] 10 mg PO DAILY 03/03/14 Topiramate 50 mg PO DAILY 03/03/14 Fish Oil/Borage/Flax/Om3,6,9 1 [[place] 3-6-9 1,200 mg Softgel] 1 cap PO DAILY Omeprazole 20 mg PO DAILY 02/03/18 Sitagliptin Phos/Metformin HCl [Janumet 50-500 mg Tablet] 2 tab PO BID 02/03/18 Lisinopril 10 mg PO ASDIR 09/03/18 Polyethylene Glycol 3350 [Miralax 119 gm Btl -] 17 gm PO DAILY 30 Days #1 bottle 09/19/18 Family Disease History - Family Disease History Family Disease History: Diabetes: Mother, Other: Father ( MVA), Brother ( drowned), Son (seizure) Review of Systems - Review of Systems Constitutional: reports: Chills, Fever, Malaise, Weakness Eyes: denies: Recent Change in Vision HENT: denies: Nasal Congestion, Throat Pain Neck: denies: Stiffness, Tenderness Cardiovascular: reports: Shortness of Breath. denies: Chest Pain, Edema, Palpitations Respiratory: reports: Cough, SOB, SOB on Exertion, Wheezing. denies: Hemoptysis Gastrointestinal: denies: Abdominal Pain, Nausea, Vomiting Genitourinary: denies: Dysuria, Hematuria Neurological: denies: Dizziness, Headache Endocrine: denies: Unexplained Weight Loss Physical Exam Vital Sings: Vital Signs Temperature 98.2 F 02/02/19 05:29 Pulse Rate 90 02/02/19 05:29 Respiratory Rate 20 02/02/19 05:29 Blood Pressure 155/60 02/02/19 05:29 O2 Sat by Pulse Oximetry (%) 96 02/01/19 21:00 Constitutional: Yes: Calm Eyes: Yes: Conjunctiva Clear, EOM Intact HENT: Yes: Atraumatic, Normocephalic Neck: Yes: Supple, Trachea Midline Cardiovascular: Yes: Regular Rate and Rhythm Respiratory: Yes: Rhonchi (scattered), Wheezes (scattered) ...Clubbing: No Gastrointestinal: Yes: Normal Bowel Sounds, Soft. No: Tenderness Edema: No Neurological: Yes: Alert, Oriented Labs: CBC, BMP 02/02/19 07:57 02/02/19 07:57 Imaging - Results Chest X-ray: Report Reviewed, Image Reviewed Cat Scan: Image Reviewed (RML, RLL infiltrates) Problem List - Problems (1) PNA (pneumonia) Code(s): J18.9 - PNEUMONIA, UNSPECIFIED ORGANISM Qualifiers: Pneumonia type: due to unspecified organism Laterality: left Lung location: lower lobe of lung Qualified Code(s): J18.1 - Lobar pneumonia, unspecified organism (2) Acute asthma exacerbation Code(s): J45.901 - UNSPECIFIED ASTHMA WITH (ACUTE) EXACERBATION (3) HTN (hypertension) Code(s): I10 - ESSENTIAL (PRIMARY) HYPERTENSION Assessment/Plan Pneumonia Acute Asthma Exacerbation HTN DM Hyperlipidemia - agree with IV antibiotics - f/u cultures - will start short course of steroids x 48hrs - inhaled bronchodilators - O2 to keep SpO2 >90% - glucose control while on systemic steroids - will need outpt f/u of chest imaging to ensure resolution of infiltrates - DVT prophylaxis Thank you for this consult Eric Du MD
[2019-02-02] MEDS: ALBUTEROL SO4 2.5/IPRATROPIUM 0.5 INH SOL 3 ML VIAL.NEB. NEB SCH ×3 (12:36→19:50)
[2019-02-02] MEDS: methylPREDNISolone NA SUCC 40 MG/1 ML VIAL IVPUSH SCH ×2 (12:43→19:01)
[2019-02-02] MEDS: TOPIRAMATE 25 MG TABLET (FP) PO SCH (12:44)
--- NOTE | 2019-02-02 12:50 | CON.ID ---
Consult Consult Specialty:: infectious diseases Referred by:: Reason for Consultation:: pneumonia - History of Present Illness Chief Complaint: cough,weakness History of Present Illness: 63yo f with PMH of DM, HLD, Migraine,admitted with cough and weakness. patient works in [employer] patient was admitted couple of months back with pneumonia and chronic dirrhoea for which she had extensive work done patient with worsening cough and sob since last couple of days and now weakness cough productive of green sputum as well as wheezing. Was hospitalized for pneumonia in September showing a mass like infiltrate in the LLL. CT chest done shows right basilar infiltrates with resolution of the left sided mass like infiltrate. 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 History of Recent Travel: No Home Medications - Allergies Allergies/Adverse Reactions: Allergies Allergy/AdvReac Type Severity Reaction Status Date / Time No Known Allergies Allergy Verified 02/01/19 13:12 - Home Medications Home Medications: Ambulatory Orders Aspirin 81 mg PO DAILY 03/03/14 Pramipexole Dihydrochloride [Mirapex -] 0.25 mg PO TID 03/03/14 Rosuvastatin Calcium [Crestor] 10 mg PO DAILY 03/03/14 Topiramate 50 mg PO DAILY 03/03/14 Fish Oil/Borage/Flax/Om3,6,9 1 [[place] 3-6-9 1,200 mg Softgel] 1 cap PO DAILY Omeprazole 20 mg PO DAILY 02/03/18 Sitagliptin Phos/Metformin HCl [Janumet 50-500 mg Tablet] 2 tab PO BID 02/03/18 Lisinopril 10 mg PO ASDIR 09/03/18 Polyethylene Glycol 3350 [Miralax 119 gm Btl -] 17 gm PO DAILY 30 Days #1 bottle 09/19/18 Family Disease History - Family Disease History Family Disease History: Diabetes: Mother, Other: Father ( MVA), Brother ( drowned), Son (seizure) Review of Systems - Review of Systems Constitutional: reports: Weakness Eyes: reports: No Symptoms HENT: reports: No Symptoms Neck: reports: No Symptoms Cardiovascular: reports: No Symptoms Respiratory: reports: Cough, SOB, SOB on Exertion, Wheezing Gastrointestinal: reports: No Symptoms Genitourinary: reports: No Symptoms Musculoskeletal: reports: No Symptoms Integumentary: reports: No Symptoms Neurological: reports: No Symptoms Endocrine: reports: No Symptoms Hematology/Lymphatic: reports: No Symptoms Psychiatric: reports: No Symptoms Physical Exam Vital Signs: Vital Signs Temperature 98.2 F 02/02/19 05:29 Pulse Rate 90 02/02/19 05:29 Respiratory Rate 20 02/02/19 05:29 Blood Pressure 155/60 02/02/19 05:29 O2 Sat by Pulse Oximetry (%) 96 02/01/19 21:00 Constitutional: Yes: Well Nourished, Mild Distress, Obese Eyes: Yes: Conjunctiva Clear Cardiovascular: Yes: Regular Rate and Rhythm Respiratory: Yes: Regular, On Nasal O2, Rhonchi, Wheezes Gastrointestinal: Yes: Normal Bowel Sounds, Soft Musculoskeletal: Yes: WNL Extremities: Yes: WNL Neurological: Yes: Alert, Oriented Psychiatric: Yes: Alert, Oriented Labs: CBC, BMP 02/02/19 07:57 02/02/19 07:57 Imaging - Results Chest X-ray: Report Reviewed, Image Reviewed Cat Scan: Image Reviewed Assessment/Plan Problem List - Problems (1) PNA (pneumonia) Code(s): J18.9 - PNEUMONIA, UNSPECIFIED ORGANISM Qualifiers: Pneumonia type: due to unspecified organism Laterality: left Lung location: lower lobe of lung Qualified Code(s): J18.1 - Lobar pneumonia, unspecified organism (2) Diabetes Code(s): E11.9 - TYPE 2 DIABETES MELLITUS WITHOUT COMPLICATIONS (3) Fever Code(s): R50.9 - FEVER, UNSPECIFIED 4 obesity plan continue current mgmt will start patient on zosyn incentive leoncio rest as per the team
[2019-02-02] MEDS ORDERED: PIPERACILLIN/TAZOBACTAM 3.375 GM VIAL IVPB ONE (15:44)
[2019-02-02] MEDS ORDERED: DEXTROSE 5%-WATER - 50 ML IVPB ONE (15:44)
[2019-02-02] MEDS: PIPERACILLIN/TAZOB 3.375 GM 3.375 GM in DEXTROSE 5%-WATER - 50 ML IVPB SCH ×2 (15:50→18:58)
[2019-02-02] MEDS: LISINOPRIL 10 MG TABLET (FP) PO SCH (17:09)
[2019-02-02] MEDS: INSULIN (LEVEMIR) 100 UNITS/ML UNITS SQ SCH (21:40)
[2019-02-02] MEDS: ROSUVASTATIN CA 10 MG TABLET (FP) PO SCH (21:40)
[2019-02-02] MEDS ORDERED: INSULIN (NOVOLOG) ASPART 100 UNITS/ML 10ML VIAL SQ STA (22:25)
[2019-02-03] MEDS ORDERED: PIPERACILLIN/TAZOBACTAM 3.375 GM VIAL IVPB ONE ×4 (00:43→21:13)
[2019-02-03] MEDS ORDERED: DEXTROSE 5%-WATER - 50 ML IVPB ONE ×4 (00:44→21:14)
[2019-02-03] MEDS: methylPREDNISolone NA SUCC 40 MG/1 ML VIAL IVPUSH SCH ×3 (01:17→16:59)
[2019-02-03] MEDS: PIPERACILLIN/TAZOB 3.375 GM 3.375 GM in DEXTROSE 5%-WATER - 50 ML IVPB SCH ×3 (01:17→16:59)
[2019-02-03] MEDS: ACETAMINOPHEN 325 MG TABLET (FP) PO PRN (02:00)
[2019-02-03] MEDS: PRAMIPEXOLE DIHYDROCHLORIDE 0.25 MG TABLET PO SCH ×3 (05:35→21:34)
[2019-02-03] MEDS: INSULIN SLIDING SCALE (NOVOLOG) 1 VIAL SQ SCH ×2 (06:03→16:32)
[2019-02-03] MEDS: ALBUTEROL SO4 2.5/IPRATROPIUM 0.5 INH SOL 3 ML VIAL.NEB. NEB SCH ×4 (08:28→20:40)
[2019-02-03] MEDS: HEPARIN NA (PORCINE) 5,000 UNITS/ML 1ML VIAL SQ SCH ×2 (09:00→21:33)
[2019-02-03] MEDS: ASPIRIN 81 MG CHEWABLE TABLETS PO SCH (09:00)
[2019-02-03] MEDS: PANTOPRAZOLE 20 MG TABLET (FP) PO SCH (09:01)
[2019-02-03] MEDS: AZITHROMYCIN IVPB 500 MG/250 ML BAG IVPB SCH ×2 (09:05→10:00)
[2019-02-03] MEDS: TOPIRAMATE 25 MG TABLET (FP) PO SCH (09:06)
--- NOTE | 2019-02-03 11:30 | PN ---
Progress Note (short form) - Note Progress Note: Events noted SOB+ less coughing+less at bedside Vital Signs - 24 hr 02/02/19 02/02/19 02/03/19 18:00 20:53 06:00 Temperature 98.6 F 98.4 F 97.7 F Pulse Rate 105 H 105 H 79 Respiratory 18 18 20 Rate Blood Pressure 144/63 141/58 L 155/74 O2 Sat by Pulse 98 Oximetry (%) 02/03/19 02/03/19 02/03/19 09:00 10:00 13:28 Temperature 97.8 F 97.7 F Pulse Rate 79 103 H Respiratory 20 20 20 Rate Blood Pressure 151/89 155/68 O2 Sat by Pulse 94 L Oximetry (%) Current Medications Generic Name Dose Route Start Last Admin Trade Name Freq PRN Reason Stop Dose Admin Acetaminophen 650 mg 02/01/19 17:53 02/03/19 02:00 Tylenol - PO 650 mg Q4H PRN Administration PAIN LEVEL 1-5 Albuterol Sulfate 1 amp 02/02/19 11:31 Ventolin 0.083% Nebulizer Soln - NEB Q4H PRN SHORT OF BREATH/WHEEZING Albuterol/Ipratropium 1 amp 02/02/19 12:00 02/03/19 12:10 Duoneb - NEB 1 amp RQID YESI Administration Aspirin 81 mg 02/02/19 10:00 02/03/19 09:00 Asa - PO 81 mg DAILY YESI Administration Heparin Sodium (Porcine) 5,000 unit 02/01/19 22:00 02/03/19 09:00 Heparin - SQ 5,000 unit BID YESI Administration Azithromycin 500 mg in 250 mls @ 250 mls/hr 02/02/19 10:00 02/03/19 10:00 Zithromax 500mg Ivpb (Pre-Docked) IVPB 250 mls/hr DAILY YESI Administration Piperacillin Sod/Tazobactam 50 mls @ 100 mls/hr 02/02/19 13:00 02/03/19 09:11 Sod 3.375 gm/ Dextrose IVPB 100 mls/hr Q8H-IV YESI Administration Protocol Insulin Aspart 1 vial 02/02/19 07:00 02/03/19 06:03 Novolog Vial Sliding Scale - SQ 3 units BIDAC YESI Administration Protocol Insulin Detemir 10 units 02/01/19 22:00 02/02/19 21:40 Levemir Vial SQ 10 unit HS YESI Administration Lisinopril 10 mg 02/01/19 18:00 02/02/19 17:09 Prinivil PO 10 mg ASDIR YESI Administration Methylprednisolone Sodium Succinate 40 mg 02/02/19 11:45 02/03/19 09:02 Solu-Medrol - IVPUSH 02/04/19 02:01 40 mg Q8H-IV YESI Administration Pantoprazole Sodium 20 mg 02/02/19 10:00 02/03/19 09:01 Protonix - PO 20 mg DAILY YESI Administration Pramipexole Dihydrochloride 0.25 mg 02/01/19 22:00 02/03/19 13:24 Mirapex - PO 0.25 mg TID YESI Administration Rosuvastatin Calcium 10 mg 02/01/19 22:00 02/02/19 21:40 Crestor - PO 10 mg HS YESI Administration Sodium Chloride 2 spray 02/01/19 21:20 [place] Nasal [place] - NS BID PRN NASAL CONGESTION Topiramate 50 mg 02/02/19 10:00 02/03/19 09:06 Topamax - PO 50 mg DAILY YESI Administration Laboratory Results - last 24 hr 02/02/19 02/02/19 02/02/19 07:57 16:59 21:44 POC Glucometer 321 391 M.pneumoniae IgG Titer <100 M.pneumoniae IgM Titer <770 02/03/19 05:34 POC Glucometer 243 M.pneumoniae IgG Titer M.pneumoniae IgM Titer S1 s2 RRR Lungs ronchi+ decreased Abd - soft, NT no edema PLAN Solumedrol at current rate Pulm eval noted iv antibiotics- urine antigens negative continue with meds clinically improving OOB daily heparin sc for DVT prophylaxis Pt wants to travel to [place] on Friday as her elderly mother fell and she wants to care for her Problem List - Problems (1) Acute asthma exacerbation Code(s): J45.901 - UNSPECIFIED ASTHMA WITH (ACUTE) EXACERBATION (2) PNA (pneumonia) Code(s): J18.9 - PNEUMONIA, UNSPECIFIED ORGANISM Qualifiers: Pneumonia type: due to unspecified organism Laterality: left Lung location: lower lobe of lung Qualified Code(s): J18.1 - Lobar pneumonia, unspecified organism (3) Asthma Code(s): J45.909 - UNSPECIFIED ASTHMA, UNCOMPLICATED (4) Diabetes Code(s): E11.9 - TYPE 2 DIABETES MELLITUS WITHOUT COMPLICATIONS
--- NOTE | 2019-02-03 12:58 | PN ---
Progress Note, Physician History of Present Illness: no fevers no other issues still does not feel good - Current Medication List Current Medications: Active Medications Acetaminophen (Tylenol -) 650 mg PO Q4H PRN PRN Reason: PAIN LEVEL 1-5 Last Admin: 02/03/19 02:00 Dose: 650 mg Albuterol Sulfate (Ventolin 0.083% Nebulizer Soln -) 1 amp NEB Q4H PRN PRN Reason: SHORT OF BREATH/WHEEZING Albuterol/Ipratropium (Duoneb -) 1 amp NEB RQID [facility] Last Admin: 02/03/19 12:10 Dose: 1 amp Aspirin (Asa -) 81 mg PO DAILY [facility] Last Admin: 02/03/19 09:00 Dose: 81 mg Heparin Sodium (Porcine) (Heparin -) 5,000 unit SQ BID YESI Last Admin: 02/03/19 09:00 Dose: 5,000 unit Azithromycin (Zithromax 500mg Ivpb (Pre-Docked)) 500 mg in 250 mls @ 250 mls/ hr IVPB DAILY [facility] Last Admin: 02/03/19 10:00 Dose: 250 mls/hr Piperacillin Sod/Tazobactam (Sod 3.375 gm/ Dextrose) 50 mls @ 100 mls/hr IVPB Q8H-IV [facility]; Protocol Last Admin: 02/03/19 09:11 Dose: 100 mls/hr Insulin Aspart (Novolog Vial Sliding Scale -) 1 vial SQ BIDAC [facility]; Protocol Last Admin: 02/03/19 06:03 Dose: 3 units Insulin Detemir (Levemir Vial) 10 units SQ HS [facility] Last Admin: 02/02/19 21:40 Dose: 10 unit Lisinopril (Prinivil) 10 mg PO ASDIR [facility] Last Admin: 02/02/19 17:09 Dose: 10 mg Methylprednisolone Sodium Succinate (Solu-Medrol -) 40 mg IVPUSH Q8H-IV [facility] Stop: 02/04/19 02:01 Last Admin: 02/03/19 09:02 Dose: 40 mg Pantoprazole Sodium (Protonix -) 20 mg PO DAILY [facility] Last Admin: 02/03/19 09:01 Dose: 20 mg Pramipexole Dihydrochloride (Mirapex -) 0.25 mg PO TID [facility] Last Admin: 02/03/19 05:35 Dose: 0.25 mg Rosuvastatin Calcium (Crestor -) 10 mg PO HS [facility] Last Admin: 02/02/19 21:40 Dose: 10 mg Sodium Chloride ([place] [facility] Nasal [place] [facility] -) 2 spray NS BID PRN PRN Reason: NASAL CONGESTION Topiramate (Topamax -) 50 mg PO DAILY [facility] Last Admin: 02/03/19 09:06 Dose: 50 mg - Objective Vital Signs: Vital Signs Temperature 97.8 F 02/03/19 10:00 Pulse Rate 79 02/03/19 10:00 Respiratory Rate 20 02/03/19 10:00 Blood Pressure 151/89 02/03/19 10:00 O2 Sat by Pulse Oximetry (%) 94 L 02/03/19 09:00 Constitutional: Yes: Calm Cardiovascular: Yes: S1, S2 Respiratory: Yes: Regular, CTA Bilaterally Gastrointestinal: Yes: Normal Bowel Sounds, Soft Extremities: Yes: WNL Labs: CBC, BMP 02/02/19 07:57 02/02/19 07:57 INR, PTT INR 1.26 (0.83-1.09) H 02/01/19 14:16 Assessment/Plan Problem List - Problems (1) PNA (pneumonia) Code(s): J18.9 - PNEUMONIA, UNSPECIFIED ORGANISM Qualifiers: Pneumonia type: due to unspecified organism Laterality: left Lung location: lower lobe of lung Qualified Code(s): J18.1 - Lobar pneumonia, unspecified organism (2) Diabetes Code(s): E11.9 - TYPE 2 DIABETES MELLITUS WITHOUT COMPLICATIONS (3) Fever Code(s): R50.9 - FEVER, UNSPECIFIED 4 obesity plan continue abx incentive leoncio rest as per the team
[2019-02-03 13:17] LABS: MYCOPLASMA PNEUMONIAE,IG G AB <100 U/mL (0-99); MYCOPLASMA PNEUMONIAE,IGM AB <770 U/mL (0-769)
[2019-02-03] MEDS ORDERED: guaiFENesin 200 MG/10 ML 10 ML UNIT-DOSE CUPS PO PRN ×2 (14:29→15:01)
[2019-02-03] MEDS: guaiFENesin 200 MG/10 ML 10 ML UNIT-DOSE CUPS PO PRN ×2 (15:25→21:33)
--- NOTE | 2019-02-03 15:37 | PN ---
Progress Note (short form) - Note Progress Note: PULMONARY Feels better today. Still with cough productive of green sputum. Fever curve trending down. Vital Signs Period Temp Pulse Resp BP Sys/Adkins Pulse Ox Last 24 Hr 97.7 F-98.6 F 79-105 18-20 141-155/58-89 94-98 Gen: NAD at rest Heart: RRR Lung: scattered rhonchi Abd: soft, nontender Ext: no edema CBC, BMP 02/02/19 07:57 02/02/19 07:57 Active Medications Acetaminophen (Tylenol -) 650 mg PO Q4H PRN PRN Reason: PAIN LEVEL 1-5 Last Admin: 02/03/19 02:00 Dose: 650 mg Albuterol Sulfate (Ventolin 0.083% Nebulizer Soln -) 1 amp NEB Q4H PRN PRN Reason: SHORT OF BREATH/WHEEZING Albuterol/Ipratropium (Duoneb -) 1 amp NEB RQID [facility] Last Admin: 02/03/19 12:10 Dose: 1 amp Aspirin (Asa -) 81 mg PO DAILY [facility] Last Admin: 02/03/19 09:00 Dose: 81 mg Guaifenesin (Robitussin -) 10 ml PO Q6H PRN PRN Reason: COUGH Last Admin: 02/03/19 15:25 Dose: 10 ml Heparin Sodium (Porcine) (Heparin -) 5,000 unit SQ BID YESI Last Admin: 02/03/19 09:00 Dose: 5,000 unit Azithromycin (Zithromax 500mg Ivpb (Pre-Docked)) 500 mg in 250 mls @ 250 mls/ hr IVPB DAILY [facility] Last Admin: 02/03/19 10:00 Dose: 250 mls/hr Piperacillin Sod/Tazobactam (Sod 3.375 gm/ Dextrose) 50 mls @ 100 mls/hr IVPB Q8H-IV [facility]I; Protocol Last Admin: 02/03/19 09:11 Dose: 100 mls/hr Insulin Aspart (Novolog Vial Sliding Scale -) 1 vial SQ BIDAC [facility]; Protocol Last Admin: 02/03/19 06:03 Dose: 3 units Insulin Detemir (Levemir Vial) 10 units SQ HS YESI Last Admin: 02/02/19 21:40 Dose: 10 unit Lisinopril (Prinivil) 10 mg PO ASDIR YESI Last Admin: 02/02/19 17:09 Dose: 10 mg Methylprednisolone Sodium Succinate (Solu-Medrol -) 40 mg IVPUSH Q8H-IV YESI Stop: 02/04/19 02:01 Last Admin: 02/03/19 09:02 Dose: 40 mg Pantoprazole Sodium (Protonix -) 20 mg PO DAILY [facility] Last Admin: 02/03/19 09:01 Dose: 20 mg Pramipexole Dihydrochloride (Mirapex -) 0.25 mg PO TID [facility] Last Admin: 02/03/19 13:24 Dose: 0.25 mg Rosuvastatin Calcium (Crestor -) 10 mg PO HS [facility] Last Admin: 02/02/19 21:40 Dose: 10 mg Sodium Chloride ([place] Nasal [place] -) 2 spray NS BID PRN PRN Reason: NASAL CONGESTION Topiramate (Topamax -) 50 mg PO DAILY [facility] Last Admin: 02/03/19 09:06 Dose: 50 mg A/P Pneumonia Acute Asthma Exacerbation HTN DM Hyperlipidemia - continue antibiotics - f/u cultures - short course of steroids x 48hrs - inhaled bronchodilators - O2 to keep SpO2 >90% - glucose control while on systemic steroids - will need outpt f/u of chest imaging to ensure resolution of infiltrates - DVT prophylaxis Problem List - Problems (1) PNA (pneumonia) Code(s): J18.9 - PNEUMONIA, UNSPECIFIED ORGANISM Qualifiers: Pneumonia type: due to unspecified organism Laterality: left Lung location: lower lobe of lung Qualified Code(s): J18.1 - Lobar pneumonia, unspecified organism (2) Acute asthma exacerbation Code(s): J45.901 - UNSPECIFIED ASTHMA WITH (ACUTE) EXACERBATION (3) HTN (hypertension) Code(s): I10 - ESSENTIAL (PRIMARY) HYPERTENSION
[2019-02-03] MEDS ORDERED: INSULIN (NOVOLOG) ASPART 100 UNITS/ML 10ML VIAL SQ ONE ×2 (16:45→22:15)
[2019-02-03] MEDS: LISINOPRIL 10 MG TABLET (FP) PO SCH (16:59)
[2019-02-03] MEDS: ROSUVASTATIN CA 10 MG TABLET (FP) PO SCH (21:33)
[2019-02-03] MEDS: INSULIN (LEVEMIR) 100 UNITS/ML UNITS SQ SCH (21:33)
[2019-02-04] MEDS: PIPERACILLIN/TAZOB 3.375 GM 3.375 GM in DEXTROSE 5%-WATER - 50 ML IVPB SCH ×5 (01:55→17:38)
[2019-02-04] MEDS: methylPREDNISolone NA SUCC 40 MG/1 ML VIAL IVPUSH SCH (03:24)
[2019-02-04] MEDS: PRAMIPEXOLE DIHYDROCHLORIDE 0.25 MG TABLET PO SCH ×3 (05:14→21:13)
[2019-02-04] MEDS: INSULIN SLIDING SCALE (NOVOLOG) 1 VIAL SQ SCH ×3 (06:10→17:38)
[2019-02-04] MEDS: ALBUTEROL SO4 2.5/IPRATROPIUM 0.5 INH SOL 3 ML VIAL.NEB. NEB SCH ×4 (07:29→20:13)
[2019-02-04] MEDS ORDERED: PIPERACILLIN/TAZOBACTAM 3.375 GM VIAL IVPB ONE ×2 (09:01→17:30)
[2019-02-04] MEDS ORDERED: PT OWN MED DRAWER 7, Y5N ONE (09:01)
[2019-02-04] MEDS ORDERED: DEXTROSE 5%-WATER - 50 ML IVPB ONE ×2 (09:02→17:30)
[2019-02-04] MEDS: PANTOPRAZOLE 20 MG TABLET (FP) PO SCH (09:47)
[2019-02-04] MEDS: HEPARIN NA (PORCINE) 5,000 UNITS/ML 1ML VIAL SQ SCH ×2 (09:47→21:14)
[2019-02-04] MEDS: ASPIRIN 81 MG CHEWABLE TABLETS PO SCH (09:47)
[2019-02-04] MEDS: TOPIRAMATE 25 MG TABLET (FP) PO SCH (09:47)
[2019-02-04] MEDS: AZITHROMYCIN IVPB 500 MG/250 ML BAG IVPB SCH ×2 (09:48→11:48)
[2019-02-04] MEDS: guaiFENesin 200 MG/10 ML 10 ML UNIT-DOSE CUPS PO PRN (09:58)
[2019-02-04] MEDS: ACETAMINOPHEN 325 MG TABLET (FP) PO PRN (09:58)
--- NOTE | 2019-02-04 10:23 | PN ---
Progress Note (short form) - Note Progress Note: PULMONARY Feels better today. Cough clearing. Back pain with coughing. Vital Signs Period Temp Pulse Resp BP Sys/Adkins Pulse Ox Last 24 Hr 97.3 F-98.1 F 71-103 20-20 143-155/60-77 96 Gen: NAD at rest Heart: RRR Lung: no wheezes appreciated Abd: soft, nontender Ext: no edema CBC, BMP 02/02/19 07:57 02/03/19 17:30 Active Medications Acetaminophen (Tylenol -) 650 mg PO Q4H PRN PRN Reason: PAIN LEVEL 1-5 Last Admin: 02/04/19 09:58 Dose: 650 mg Albuterol Sulfate (Ventolin 0.083% Nebulizer Soln -) 1 amp NEB Q4H PRN PRN Reason: SHORT OF BREATH/WHEEZING Albuterol/Ipratropium (Duoneb -) 1 amp NEB RQID [facility] Last Admin: 02/04/19 07:29 Dose: 1 amp Aspirin (Asa -) 81 mg PO DAILY [facility] Last Admin: 02/04/19 09:47 Dose: 81 mg Guaifenesin (Robitussin -) 10 ml PO Q6H PRN PRN Reason: COUGH Last Admin: 02/04/19 09:58 Dose: 10 ml Heparin Sodium (Porcine) (Heparin -) 5,000 unit SQ BID YESI Last Admin: 02/04/19 09:47 Dose: 5,000 unit Azithromycin (Zithromax 500mg Ivpb (Pre-Docked)) 500 mg in 250 mls @ 250 mls/ hr IVPB DAILY [facility] Last Admin: 02/04/19 09:48 Dose: 250 mls/hr Piperacillin Sod/Tazobactam (Sod 3.375 gm/ Dextrose) 50 mls @ 100 mls/hr IVPB Q8H-IV [facility]; Protocol Last Admin: 02/04/19 09:47 Dose: 100 mls/hr Insulin Aspart (Novolog Vial Sliding Scale -) 1 vial SQ TIDAC [facility]; Protocol Last Admin: 02/04/19 06:10 Dose: 8 units Insulin Detemir (Levemir Vial) 14 units SQ HS [facility] Last Admin: 02/03/19 21:33 Dose: 14 units Lisinopril (Prinivil) 10 mg PO ASDIR [facility] Last Admin: 02/03/19 16:59 Dose: 10 mg Pantoprazole Sodium (Protonix -) 20 mg PO DAILY [facility] Last Admin: 02/04/19 09:47 Dose: 20 mg Pramipexole Dihydrochloride (Mirapex -) 0.25 mg PO TID [facility] Last Admin: 02/04/19 05:14 Dose: 0.25 mg Rosuvastatin Calcium (Crestor -) 10 mg PO HS [facility] Last Admin: 02/03/19 21:33 Dose: 10 mg Sodium Chloride ([place] Nasal [place] -) 2 spray NS BID PRN PRN Reason: NASAL CONGESTION Last Admin: 02/03/19 21:33 Dose: 2 sprays Topiramate (Topamax -) 50 mg PO DAILY [facility] Last Admin: 02/04/19 09:47 Dose: 50 mg A/P Pneumonia Acute Asthma Exacerbation HTN DM Hyperlipidemia - continue antibiotics - cough suppressants - will change steroids to PO prednisone 40mg x 3 more days - inhaled bronchodilators - O2 to keep SpO2 >90% - glucose control while on systemic steroids - will need outpt f/u of chest imaging to ensure resolution of infiltrates - DVT prophylaxis Problem List - Problems (1) PNA (pneumonia) Code(s): J18.9 - PNEUMONIA, UNSPECIFIED ORGANISM Qualifiers: Pneumonia type: due to unspecified organism Laterality: left Lung location: lower lobe of lung Qualified Code(s): J18.1 - Lobar pneumonia, unspecified organism (2) Acute asthma exacerbation Code(s): J45.901 - UNSPECIFIED ASTHMA WITH (ACUTE) EXACERBATION (3) HTN (hypertension) Code(s): I10 - ESSENTIAL (PRIMARY) HYPERTENSION
[2019-02-04] MEDS ORDERED: guaiFENesin/CODEINE 5 ML UNIT-DOSE CUPS PO PRN (11:10)
[2019-02-04] MEDS ORDERED: INSULIN (NOVOLOG) ASPART 100 UNITS/ML 10ML VIAL ONE (11:44)
[2019-02-04] MEDS: predniSONE 20 MG TABLET (UD) PO SCH (11:47)
--- NOTE | 2019-02-04 12:40 | PN ---
Progress Note (short form) - Note Progress Note: Events noted SOB+ less coughing+less feeling better has loose stools Vital Signs - 24 hr 02/03/19 02/03/19 02/03/19 13:28 18:18 20:23 Temperature 97.7 F 97.3 F L Pulse Rate 103 H 102 H Respiratory 20 20 20 Rate Blood Pressure 155/68 143/60 O2 Sat by Pulse 96 Oximetry (%) 02/03/19 02/04/19 20:25 05:53 Temperature 97.8 F 98.1 F Pulse Rate 88 71 Respiratory 20 20 Rate Blood Pressure 146/66 146/77 O2 Sat by Pulse Oximetry (%) Current Medications Generic Name Dose Route Start Last Admin Trade Name Freq PRN Reason Stop Dose Admin Acetaminophen 650 mg 02/01/19 17:53 02/04/19 09:58 Tylenol - PO 650 mg Q4H PRN Administration PAIN LEVEL 1-5 Albuterol Sulfate 1 amp 02/02/19 11:31 Ventolin 0.083% Nebulizer Soln - NEB Q4H PRN SHORT OF BREATH/WHEEZING Albuterol/Ipratropium 1 amp 02/02/19 12:00 02/04/19 11:47 Duoneb - NEB Not Given RQID YESI Aspirin 81 mg 02/02/19 10:00 02/04/19 09:47 Asa - PO 81 mg DAILY YESI Administration Guaifenesin/Codeine Phosphate 5 ml 02/04/19 11:10 Robitussin Ac - PO TID PRN COUGH Heparin Sodium (Porcine) 5,000 unit 02/01/19 22:00 02/04/19 09:47 Heparin - SQ 5,000 unit BID YESI Administration Piperacillin Sod/Tazobactam 50 mls @ 100 mls/hr 02/02/19 13:00 02/04/19 09:48 Sod 3.375 gm/ Dextrose IVPB 100 mls/hr Q8H-IV YESI Administration Protocol Insulin Aspart 1 vial 02/04/19 07:00 02/04/19 11:47 Novolog Vial Sliding Scale - SQ 10 units TIDAC YESI Administration Protocol Insulin Detemir 14 units 02/03/19 19:02 02/03/19 21:33 Levemir Vial SQ 14 units HS YESI Administration Lactobacillus Acidophilus 1 tab 02/04/19 12:15 Bacid - PO BID YESI Lisinopril 10 mg 02/01/19 18:00 02/03/19 16:59 Prinivil PO 10 mg ASDIR YESI Administration Pantoprazole Sodium 20 mg 02/02/19 10:00 02/04/19 09:47 Protonix - PO 20 mg DAILY YESI Administration Pramipexole Dihydrochloride 0.25 mg 02/01/19 22:00 02/04/19 05:14 Mirapex - PO 0.25 mg TID YESI Administration Prednisone 40 mg 02/04/19 11:15 02/04/19 11:47 Deltasone - PO 02/06/19 10:01 40 mg DAILY YESI Administration Rosuvastatin Calcium 10 mg 02/01/19 22:00 02/03/19 21:33 Crestor - PO 10 mg HS YESI Administration Sodium Chloride 2 spray 02/01/19 21:20 02/03/19 21:33 [place] Nasal [place] - NS 2 sprays BID PRN Administration NASAL CONGESTION Topiramate 50 mg 02/02/19 10:00 02/04/19 09:47 Topamax - PO 50 mg DAILY YESI Administration Laboratory Results - last 24 hr 02/02/19 02/03/19 02/03/19 07:57 16:14 17:30 POC Glucometer 499 Random Glucose 495 H* M.pneumoniae IgG Titer <100 M.pneumoniae IgM Titer <770 02/03/19 02/04/19 02/04/19 21:38 05:16 11:31 POC Glucometer 431 328 380 Random Glucose M.pneumoniae IgG Titer M.pneumoniae IgM Titer S1 s2 RRR Lungs ronchi+ decreased Abd - soft, NT no edema PLAN Solumedrol changed to PO Prednisone Pulm eval noted iv antibiotics- urine antigens negative continue with meds clinically improving OOB daily heparin sc for DVT prophylaxis dc planning for tomorrow add bacid Robitussin AC ordered Pt wants to travel to [place] on Friday as her elderly mother fell and she wants to care for her Problem List - Problems (1) Acute asthma exacerbation Code(s): J45.901 - UNSPECIFIED ASTHMA WITH (ACUTE) EXACERBATION (2) PNA (pneumonia) Code(s): J18.9 - PNEUMONIA, UNSPECIFIED ORGANISM Qualifiers: Pneumonia type: due to unspecified organism Laterality: left Lung location: lower lobe of lung Qualified Code(s): J18.1 - Lobar pneumonia, unspecified organism (3) Asthma Code(s): J45.909 - UNSPECIFIED ASTHMA, UNCOMPLICATED (4) Diabetes Code(s): E11.9 - TYPE 2 DIABETES MELLITUS WITHOUT COMPLICATIONS
--- NOTE | 2019-02-04 14:54 | PN ---
Progress Note, Physician History of Present Illness: no fevers no other issues still does not feel good - Current Medication List Current Medications: Active Medications Acetaminophen (Tylenol -) 650 mg PO Q4H PRN PRN Reason: PAIN LEVEL 1-5 Last Admin: 02/04/19 09:58 Dose: 650 mg Albuterol Sulfate (Ventolin 0.083% Nebulizer Soln -) 1 amp NEB Q4H PRN PRN Reason: SHORT OF BREATH/WHEEZING Albuterol/Ipratropium (Duoneb -) 1 amp NEB RQID [facility] Last Admin: 02/04/19 11:47 Dose: Not Given Aspirin (Asa -) 81 mg PO DAILY [facility] Last Admin: 02/04/19 09:47 Dose: 81 mg Guaifenesin/Codeine Phosphate (Robitussin Ac -) 5 ml PO TID PRN PRN Reason: COUGH Heparin Sodium (Porcine) (Heparin -) 5,000 unit SQ BID [facility] Last Admin: 02/04/19 09:47 Dose: 5,000 unit Piperacillin Sod/Tazobactam (Sod 3.375 gm/ Dextrose) 50 mls @ 100 mls/hr IVPB Q8H-IV [facility]; Protocol Last Admin: 02/04/19 09:48 Dose: 100 mls/hr Insulin Aspart (Novolog Vial Sliding Scale -) 1 vial SQ TIDAC [facility]; Protocol Last Admin: 02/04/19 11:47 Dose: 10 units Insulin Detemir (Levemir Vial) 14 units SQ [facility] Last Admin: 02/03/19 21:33 Dose: 14 units Lactobacillus Acidophilus (Bacid -) 1 tab PO BID [facility] Lisinopril (Prinivil) 10 mg PO ASDIR [facility] Last Admin: 02/03/19 16:59 Dose: 10 mg Pantoprazole Sodium (Protonix -) 20 mg PO DAILY [facility] Last Admin: 02/04/19 09:47 Dose: 20 mg Pramipexole Dihydrochloride (Mirapex -) 0.25 mg PO TID [facility] Last Admin: 02/04/19 05:14 Dose: 0.25 mg Prednisone (Deltasone -) 40 mg PO DAILY [facility] Stop: 02/06/19 10:01 Last Admin: 02/04/19 11:47 Dose: 40 mg Rosuvastatin Calcium (Crestor -) 10 mg PO HS [facility] Last Admin: 02/03/19 21:33 Dose: 10 mg Sodium Chloride ([place] Nasal [place] -) 2 spray NS BID PRN PRN Reason: NASAL CONGESTION Last Admin: 02/03/19 21:33 Dose: 2 sprays Topiramate (Topamax -) 50 mg PO DAILY [facility] Last Admin: 02/04/19 09:47 Dose: 50 mg - Objective Vital Signs: Vital Signs Temperature 97.8 F 02/04/19 13:16 Pulse Rate 78 02/04/19 13:16 Respiratory Rate 20 02/04/19 13:16 Blood Pressure 149/73 02/04/19 13:16 O2 Sat by Pulse Oximetry (%) 96 02/03/19 20:23 Constitutional: Yes: Calm, Mild Distress Cardiovascular: Yes: Regular Rate and Rhythm Respiratory: Yes: Regular, On Nasal O2, Poor Air Entry Gastrointestinal: Yes: Normal Bowel Sounds, Soft Musculoskeletal: Yes: WNL Extremities: Yes: WNL Neurological: Yes: Alert, Oriented Psychiatric: Yes: Alert, Oriented Labs: CBC, BMP 02/02/19 07:57 02/03/19 17:30 INR, PTT INR 1.26 (0.83-1.09) H 02/01/19 14:16 Assessment/Plan Problem List - Problems (1) PNA (pneumonia) Code(s): J18.9 - PNEUMONIA, UNSPECIFIED ORGANISM Qualifiers: Pneumonia type: due to unspecified organism Laterality: left Lung location: lower lobe of lung Qualified Code(s): J18.1 - Lobar pneumonia, unspecified organism (2) Diabetes Code(s): E11.9 - TYPE 2 DIABETES MELLITUS WITHOUT COMPLICATIONS (3) Fever Code(s): R50.9 - FEVER, UNSPECIFIED 4 obesity plan continue abx incentive leoncio rest as per the team
[2019-02-04] MEDS: LACTOBACILLUS ACIDOPHILUS 1 TABLET PO SCH ×2 (14:56→21:14)
[2019-02-04] MEDS: LISINOPRIL 10 MG TABLET (FP) PO SCH (17:43)
[2019-02-04] MEDS: ROSUVASTATIN CA 10 MG TABLET (FP) PO SCH (21:13)
[2019-02-04] MEDS: INSULIN (LEVEMIR) 100 UNITS/ML UNITS SQ SCH (21:14)
[2019-02-05] MEDS: PIPERACILLIN/TAZOB 3.375 GM 3.375 GM in DEXTROSE 5%-WATER - 50 ML IVPB SCH ×2 (02:00→10:42)
[2019-02-05] MEDS: INSULIN SLIDING SCALE (NOVOLOG) 1 VIAL SQ SCH ×2 (06:05→12:44)
[2019-02-05] MEDS: PRAMIPEXOLE DIHYDROCHLORIDE 0.25 MG TABLET PO SCH (06:05)
[2019-02-05 07:16] LABS: HEMATOCRIT 33.6 % (32.4-45.2); HEMOGLOBIN 11.1 GM/dL (10.7-15.3); MCH 28.1 pg (25.7-33.7); MCHC 33.1 g/dl (32.0-36.0); MEAN PLT VOLUME 9.3 fl (7.5-11.1); PLATELET COUNT 296 K/MM3 (134-434); RBC 3.95 M/mm3 (3.60-5.2); RDW 13.3 % (11.6-15.6); WHITE BLOOD COUNT 10.8 K/mm3 (4.0-10.0)
[2019-02-05] MEDS: ALBUTEROL SO4 2.5/IPRATROPIUM 0.5 INH SOL 3 ML VIAL.NEB. NEB SCH (07:20)
[2019-02-05 07:43] LABS: ANION GAP 8 MMOL/L (8-16); BLOOD UREA NITROGEN 19 mg/dL (7-18); CALCIUM 8.3 mg/dL (8.5-10.1); CHLORIDE 101 mmol/L (98-107); CO2 28 mmol/L (21-32); CREATININE 0.9 mg/dL (0.55-1.3); GLUCOSE,RANDOM 233 mg/dL (74-106); POTASSIUM 4.2 mmol/L (3.5-5.1); SODIUM 136 mmol/L (136-145)
[2019-02-05] MEDS ORDERED: PIPERACILLIN/TAZOBACTAM 3.375 GM VIAL IVPB ONE ×2 (08:33)
[2019-02-05] MEDS ORDERED: DEXTROSE 5%-WATER - 50 ML IVPB ONE ×2 (08:33)
[2019-02-05] MEDS: ASPIRIN 81 MG CHEWABLE TABLETS PO SCH (10:45)
[2019-02-05] MEDS: predniSONE 20 MG TABLET (UD) PO SCH (10:45)
[2019-02-05] MEDS: LACTOBACILLUS ACIDOPHILUS 1 TABLET PO SCH (10:45)
[2019-02-05] MEDS: TOPIRAMATE 25 MG TABLET (FP) PO SCH (10:45)
[2019-02-05] MEDS: HEPARIN NA (PORCINE) 5,000 UNITS/ML 1ML VIAL SQ SCH (10:45)
[2019-02-05] MEDS: PANTOPRAZOLE 20 MG TABLET (FP) PO SCH (10:45)
--- NOTE | 2019-02-05 11:13 | DS ---
Physical Examination Vital Signs: Vital Signs Temperature 98.6 F 02/05/19 05:38 Pulse Rate 65 02/05/19 05:38 Respiratory Rate 20 02/05/19 05:38 Blood Pressure 156/82 02/05/19 05:38 O2 Sat by Pulse Oximetry (%) 96 02/04/19 21:00 Findings/Remarks: pt seen/ examined chart reviewed feels well wants to go home denies pain Constitutional: Yes: No Distress, Calm Eyes: Yes: Conjunctiva Clear Neck: Yes: Supple Cardiovascular: Yes: Regular Rate and Rhythm Respiratory: Yes: Diminished Gastrointestinal: Yes: Soft Edema: No Neurological: Yes: Alert Psychiatric: Yes: Alert Labs: CBC, BMP 02/05/19 07:00 02/05/19 07:00 Discharge Summary Reason For Visit: PNEUMONIA Current Active Problems Acute asthma exacerbation (Acute) PNA (pneumonia) (Acute) Hospital Course: 63-year-old female with history of asthma, hypertension, diabetes, recent pneumonia 3-4 months ago presents now with acute on chronic cough associated with dyspnea on exertion and subjective fevers and chills. known to me from recent hospitalization a few months ago--- Diagnosed with pneumonia and was treated [facility] again--with similar symptoms showed recurrent Pneumonia treated with steroids/ abx f/u ct chest done much better stable for d/c sugar high - due to steroids discussed dont want insulin pt will be monitoring at home pt need to do ct chest in 2-3 months to document clearing of pneumonia Strongly advised to f/u with pmd and pulmonary pt in agreement d/c today meds reconcilled discussed with nursing staff also abx / meds as needed prescribed to pharmacy Condition: Improved - Instructions Disposition: HOME - Home Medications Comprehensive Discharge Medication List: Ambulatory Orders Aspirin 81 mg PO DAILY 03/03/14 Pramipexole Dihydrochloride [Mirapex -] 0.25 mg PO TID 03/03/14 Rosuvastatin Calcium [Crestor] 10 mg PO DAILY 03/03/14 Topiramate 50 mg PO DAILY 03/03/14 Fish Oil/Borage/Flax/Om3,6,9 1 [[place] 3-6-9 1,200 mg Softgel] 1 cap PO DAILY Omeprazole 20 mg PO DAILY 02/03/18 Lisinopril 10 mg PO ASDIR 09/03/18 Albuterol 0.083% Nebulizer Marj [Ventolin 0.083% Nebulizer Soln -] 1 amp NEB Q4H PRN amp 02/05/19 Amoxicillin/Potassium Clav [Augmentin 875-125 Tablet] 1 each PO BID 5 Days #10 tablet 02/05/19 Guaifenesin AC [Robitussin AC -] 5 ml PO TID PRN #1 liquid MDD 15 ml 02/05/19 Lactobacillus Acidophilus [Bacid -] 1 tab PO BID tab 02/05/19 Prednisone 10 mg PO ASDIR #22 tablet 02/05/19 Sitagliptin Phos/Metformin HCl [Janumet 50-500 mg Tablet] 2 tab PO BID #60 tablet 02/05/19 Sodium Chloride Nasal [place] [[place] Nasal [place] -] 2 spray NS BID PRN spray 02/05/19
--- NOTE | 2019-02-05 11:37 | PN ---
Progress Note, Physician History of Present Illness: no new issues loose s tools better - Current Medication List Current Medications: Active Medications Acetaminophen (Tylenol -) 650 mg PO Q4H PRN PRN Reason: PAIN LEVEL 1-5 Last Admin: 02/04/19 09:58 Dose: 650 mg Albuterol Sulfate (Ventolin 0.083% Nebulizer Soln -) 1 amp NEB Q4H PRN PRN Reason: SHORT OF BREATH/WHEEZING Albuterol/Ipratropium (Duoneb -) 1 amp NEB RQID [facility] Last Admin: 02/05/19 07:20 Dose: 1 amp Aspirin (Asa -) 81 mg PO DAILY [facility] Last Admin: 02/05/19 10:45 Dose: 81 mg Guaifenesin/Codeine Phosphate (Robitussin Ac -) 5 ml PO TID PRN PRN Reason: COUGH Last Admin: 02/04/19 22:54 Dose: 5 ml Heparin Sodium (Porcine) (Heparin -) 5,000 unit SQ BID [facility] Last Admin: 02/05/19 10:45 Dose: 5,000 unit Piperacillin Sod/Tazobactam (Sod 3.375 gm/ Dextrose) 50 mls @ 100 mls/hr IVPB Q8H-IV [facility]; Protocol Last Admin: 02/05/19 10:42 Dose: 100 mls/hr Insulin Aspart (Novolog Vial Sliding Scale -) 1 vial SQ TIDAC [facility]; Protocol Last Admin: 02/05/19 06:05 Dose: 6 units Insulin Detemir (Levemir Vial) 14 units SQ HS [facility] Last Admin: 02/04/19 21:14 Dose: 14 units Lactobacillus Acidophilus (Bacid -) 1 tab PO BID [facility] Last Admin: 02/05/19 10:45 Dose: 1 tab Lisinopril (Prinivil) 10 mg PO ASDIR [facility] Last Admin: 02/04/19 17:43 Dose: 10 mg Pantoprazole Sodium (Protonix -) 20 mg PO DAILY [facility] Last Admin: 02/05/19 10:45 Dose: 20 mg Pramipexole Dihydrochloride (Mirapex -) 0.25 mg PO TID [facility] Last Admin: 02/05/19 06:05 Dose: 0.25 mg Prednisone (Deltasone -) 40 mg PO DAILY [facility] Stop: 02/06/19 10:01 Last Admin: 02/05/19 10:45 Dose: 40 mg Rosuvastatin Calcium (Crestor -) 10 mg PO HS [facility] Last Admin: 02/04/19 21:13 Dose: 10 mg Sodium Chloride ([place] Nasal [place] -) 2 spray NS BID PRN PRN Reason: NASAL CONGESTION Last Admin: 02/03/19 21:33 Dose: 2 sprays Topiramate (Topamax -) 50 mg PO DAILY [facility] Last Admin: 02/05/19 10:45 Dose: 50 mg - Objective Vital Signs: Vital Signs Temperature 98.6 F 02/05/19 05:38 Pulse Rate 65 02/05/19 05:38 Respiratory Rate 20 02/05/19 05:38 Blood Pressure 156/82 02/05/19 05:38 O2 Sat by Pulse Oximetry (%) 96 02/04/19 21:00 Constitutional: Yes: No Distress, Calm Cardiovascular: Yes: S1, S2 Respiratory: Yes: Regular, Poor Air Entry Gastrointestinal: Yes: Normal Bowel Sounds, Soft Musculoskeletal: Yes: WNL Extremities: Yes: WNL Labs: CBC, BMP 02/05/19 07:00 02/05/19 07:00 INR, PTT INR 1.26 (0.83-1.09) H 02/01/19 14:16 Assessment/Plan Problem List - Problems (1) PNA (pneumonia) Code(s): J18.9 - PNEUMONIA, UNSPECIFIED ORGANISM Qualifiers: Pneumonia type: due to unspecified organism Laterality: left Lung location: lower lobe of lung Qualified Code(s): J18.1 - Lobar pneumonia, unspecified organism (2) Diabetes Code(s): E11.9 - TYPE 2 DIABETES MELLITUS WITHOUT COMPLICATIONS (3) Fever Code(s): R50.9 - FEVER, UNSPECIFIED 4 obesity plan continue current mgmt d/w the team incentive leoncio rest as per the team
[2019-02-05 12:51] VITALS: BP 142/78; PULSE 73; TEMP 97.9
== END 2019-02-05 13:13 | disposition home or self-care (01) | DRG 139 ==
LOC: JER 13:06 → JERBED 15:57 → OBSVTOIN 17:53 → J7W 18:59
PROVIDERS: ADMIT Internal Medicine; ATTEND Internal Medicine
DX: J18.1 Lobar pneumonia, unspecified organism (principal); J45.901 Unspecified asthma with (acute) exacerbation; E11.9 Type 2 diabetes mellitus without complications; I10 Essential (primary) hypertension; E78.5 Hyperlipidemia, unspecified; E66.9 Obesity, unspecified; Z68.32 Body mass index [BMI] 32.0-32.9, adult; K21.9 Gastro-esophageal reflux disease without esophagitis
CPT/HCPCS: 36415; 71045-TC-FY; 71250-TC; 80048; 80053; 82550; 82947; 82962; 83605; 83880; 84484; 85025; 85027; 85610; 85730; 86738; 87040; 87804; 87899; 93005; 93010; 94640; 99285-25; G0378; J0131; J1644; J7030

== ENCOUNTER 2019-04-02 10:33 | Emergency (ER) | payer OTHER ==
[2019-04-02 10:42] VITALS: BP 158/72; PULSE 86; TEMP 97.8; BMI 32.3
--- NOTE | 2019-04-02 11:06 | PDOC ---
History of Present Illness - General History Source: Patient Exam Limitations: No Limitations <Crystal Moreno - Last Filed: 04/02/19 14:11> - History of Present Illness Initial Comments: 04/02/19 11:06 The patient is a 63 year old female with a PMH of NIDDM, Asthma, HTN, chronic lower back pain and recurrent PNA who presents to our ED c/o 3 day h/o of nausea and vomiting. Symptoms started acutely and she has intermittently been tolerating PO intake. Multiple episodes of NBNB emesis and three episodes of loose watery stools today. Denies subjective fevers. @ bedside assists in history and notes patient has been unable to see her primary care doctor for evaluation because she has an unpaid $800 bill. Patient states her prescriptions for her Metformin, Lisinopril and Crestor ran out last week and she is unable to see her doctor for refills. Patient also c/o lower extremity edema, which she initially states started 4 days previous but later states it is chronic. 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 The patient denies chest pain, shortness of breath, lightheadedness, palpitations. As per EMR patient last evaluated in our ED in 03/2019 for acute on chronic cough, DUNBAR. Patient discharged on a five day course of Amoxicillin. <Lakesha Benavidez - Last Filed: 04/02/19 15:32> - General Chief Complaint: Nausea/Vomiting Stated Complaint: LEG/BACK PAIN,VOMITING, DIARRHEA Time Seen by Provider: 04/02/19 11:00 Past History <Crystal Moreno - Last Filed: 04/02/19 14:11> - Past Medical History Anemia: No Asthma: Yes Cancer: No Cardiac Disorders: Yes (MVP) CVA: No COPD: No DVT: No Dementia: No Diabetes: Yes (NIDDM) Dialysis: No GI Disorders: No Disorders: No HTN: No Hypercholesterolemia: Yes Kidney Stones: No Liver Disease: No Psychiatric Problems: No Seizures: No Thyroid Disease: No Lung CA: No - Surgical History Abdominal Surgery: No Appendectomy: No Cardiac Surgery: No Cholecystectomy: Yes (LAPAROSCOPIC) Gastric Stapling: No GI Surgery: No Lung Surgery: No Neurologic Surgery: No Orthopedic Surgery: Yes (RIGHT SHOULDER SURGERY) - Family Disease History Family Disease History: Heart Disease: Father - Immunization History Td Vaccination: Yes TDAP Vaccination: Yes Immunization Up to Date: Yes - Suicide/Smoking/Psychosocial Hx Smoking Status: No Smoking History: Never smoked Years of Tobacco Use: 0 Have you smoked in the past 12 months: Yes Number of Cigarettes Smoked Daily: 2 If you are a former smoker, when did you quit?: years ago Information on smoking cessation initiated: No 'Breaking Loose' booklet given: 03/03/14 Hx Alcohol Use: No Drug/Substance Use Hx: No Substance Use Type: None Hx Substance Use Treatment: No <Lakesha Benavidez - Last Filed: 04/02/19 15:32> - Past Medical History Allergies/Adverse Reactions: Allergies Allergy/AdvReac Type Severity Reaction Status Date / Time No Known Allergies Allergy Verified 04/02/19 10:38 Home Medications: Ambulatory Orders Aspirin 81 mg PO DAILY 03/03/14 Pramipexole Dihydrochloride [Mirapex -] 0.25 mg PO TID 03/03/14 Rosuvastatin Calcium [Crestor] 10 mg PO DAILY 03/03/14 Topiramate 50 mg PO DAILY 03/03/14 Fish Oil/Borage/Flax/Om3,6,9 1 [[place] 3-6-9 1,200 mg Softgel] 1 cap PO DAILY Omeprazole 20 mg PO DAILY 02/03/18 Lisinopril 10 mg PO ASDIR 09/03/18 Albuterol 0.083% Nebulizer Marj [Ventolin 0.083% Nebulizer Soln -] 1 amp NEB Q4H PRN amp 02/05/19 Amoxicillin/Potassium Clav [Augmentin 875-125 Tablet] 1 each PO BID 5 Days #10 tablet 02/05/19 Guaifenesin AC [Robitussin AC -] 5 ml PO TID PRN #1 liquid MDD 15 ml 02/05/19 Lactobacillus Acidophilus [Bacid -] 1 tab PO BID tab 02/05/19 Prednisone 10 mg PO ASDIR #22 tablet 02/05/19 Sitagliptin Phos/Metformin HCl [Janumet 50-500 mg Tablet] 2 tab PO BID #60 tablet 02/05/19 Sodium Chloride Nasal [place] [[place] Nasal [place] -] 2 spray NS BID PRN spray 02/05/19 Ondansetron [Zofran Odt -] 4 mg SL TID PRN #9 od.tablet 04/02/19 Review of Systems - Review of Systems Constitutional: No: Chills, Fever HEENTM: No: Blurred Vision, Recent change in vision Respiratory: No: Cough, Orthopnea, Shortness of Breath Cardiac (ROS): No: Chest Pain, Lightheadedness, Palpitations, Syncope ABD/GI: Yes: Diarrhea, Nausea, Vomiting. No: Constipated : No: Burning, Dysuria <Lakesha Benavidez - Last Filed: 04/02/19 15:32> *Physical Exam - Vital Signs Last Vital Signs Temp Pulse Resp BP Pulse Ox 97.8 F 86 18 158/72 97 04/02/19 10:36 04/02/19 10:36 04/02/19 10:36 04/02/19 10:36 04/02/19 10:36 <TiffanieCrystal Barrett - Last Filed: 04/02/19 14:11> - Vital Signs Last Vital Signs Temp Pulse Resp BP Pulse Ox 97.8 F 86 18 158/72 97 04/02/19 10:36 04/02/19 10:36 04/02/19 10:36 04/02/19 10:36 04/02/19 10:36 - Physical Exam Comments: 04/02/19 11:45 Triage VS reviewed Awake, alert, non-toxic but uncomfortable, soft voice Abdomen: soft, non-tender, (+) bowel sounds CV: S1, S2, Holosystolic murmur, B/L non-pitting LE edema Respiratory: CLTA B/L Extremity: B/L non-pitting edema, 2+ DP pulses MSK: no C-spine L/T/S, no bony step offs <Lakesha Benavidez - Last Filed: 04/02/19 15:32> ED Treatment Course - LABORATORY CBC & Chemistry Diagram: 04/02/19 11:45 04/02/19 11:45 - ADDITIONAL ORDERS Additional order review: Laboratory Results 04/02/19 04/02/19 04/02/19 13:09 11:45 11:45 VBG pH 7.35 POC VBG pCO2 50.3 POC VBG pO2 32.0 VBG HCO3 27.2 VBG O2 Sat (Bridget) 52.3 L VBG Base Excess 1.1 Sodium Potassium Chloride Carbon Dioxide Anion Gap BUN Creatinine Est GFR (CKD-EPI)AfAm Est GFR (CKD-EPI)NonAf Random Glucose Calcium Total Bilirubin AST ALT Alkaline Phosphatase Creatine Kinase Troponin I B-Natriuretic Peptide 201.9 H Total Protein Albumin Urine Color Yellow Urine Appearance Clear Urine pH 7.0 Ur Specific [place] 1.008 L Urine Protein Negative Urine Glucose (UA) Negative Urine Ketones Negative Urine Blood Negative Urine Nitrite Negative Urine Bilirubin Negative Urine Urobilinogen 0.2 Ur Leukocyte Esterase Negative Acetone, Qual Negative L 04/02/19 11:45 VBG pH POC VBG pCO2 POC VBG pO2 VBG HCO3 VBG O2 Sat (Bridget) VBG Base Excess Sodium 132 L Potassium 4.3 Chloride 98 Carbon Dioxide 28 Anion Gap 6 L BUN 15 Creatinine 0.9 Est GFR (CKD-EPI)AfAm 78.87 Est GFR (CKD-EPI)NonAf 68.05 Random Glucose 226 H Calcium 9.5 Total Bilirubin 0.3 AST 14 L ALT 28 Alkaline Phosphatase 118 H Creatine Kinase 113 Troponin I < 0.02 B-Natriuretic Peptide Total Protein 6.9 Albumin 3.4 Urine Color Urine Appearance Urine pH Ur Specific [place] Urine Protein Urine Glucose (UA) Urine Ketones Urine Blood Urine Nitrite Urine Bilirubin Urine Urobilinogen Ur Leukocyte Esterase Acetone, Qual 04/02/19 11:45 RBC 4.40 MCV 86.4 MCHC 32.9 RDW 15.0 D MPV 10.2 Neutrophils % 59.7 D Lymphocytes % 32.2 D Monocytes % 6.8 Eosinophils % 0.8 D Basophils % 0.5 - Medications Given in the ED: ED Medications Discontinued Medications Generic Name Dose Route Start Last Admin Trade Name Gasper PRN Reason Stop Dose Admin Acetaminophen 1,000 mg 04/02/19 12:53 04/02/19 13:22 Ofirmev Injection - IVPB 04/02/19 12:54 1,000 mg ONCE ONE Administration Lactated Ringer's 1,000 ml in 1,000 mls @ 1,000 mls/hr 04/02/19 11:07 11:35 Lactated Ringers Solution IV 04/02/19 12:06 1,000 mls/hr ONCE ONE Administration Ondansetron HCl 4 mg 04/02/19 11:08 04/02/19 11:35 Zofran Injection IVPUSH 04/02/19 11:09 4 mg ONCE ONE Administration <Crystal Moreno - Last Filed: 04/02/19 14:11> - LABORATORY CBC & Chemistry Diagram: 04/02/19 11:45 04/02/19 11:45 <Lakesha Benavidez - Last Filed: 04/02/19 15:32> Medical Decision Making - Medical Decision Making 04/02/19 11:36 63 year old female with poorly controlled NIDDM, presents with nausea/vomiting, loose stools. VS unremarkable. No belly tenderness. DDx is broad and includes viral gastritis/gastroenteritis, DKA/HHONK, also consider R/O ACS, APE , new onset CHF. 04/02/19 11:40 04/02/19 14:19 Troponin (-) x1 EKG shows NSR HR 78, no deviations, normal axis, no BINTA/STD/TWI No acetone, VBG normal - less likely DKA CBC, CMP unremarkable. Patient symptomatically improved s/p hydration and Zofran w/o any emesis while in ED Will discharge home with return precautions and supportive care. <Lakesha Benavidez - Last Filed: 04/02/19 15:32> *DC/Admit/Observation/Transfer - Discharge Dispostion Decision to Admit order: No <Crystal Moreno - Last Filed: 04/02/19 14:11> <Lakesha Benavidez - Last Filed: 04/02/19 15:32> Diagnosis at time of Disposition: Nausea & vomiting - Discharge Dispostion Disposition: HOME Condition at time of disposition: Improved - Prescriptions Prescriptions: Ondansetron [Zofran Odt -] 4 mg SL TID PRN #9 od.tablet PRN Reason: nausea, vomiting - Referrals Referrals: Zahra Aviles MD [Primary Care Provider] - - Patient Instructions Printed Discharge Instructions: DI for Nausea -- Adult, DI for Vomiting -- Adult Additional Instructions: 1) Please follow-up with your primary care doctor in the next 1-2 days. Please call tomorrow for for any urgent issues. 2) You were given a copy of the tests performed today. Please bring the results with you and review them with your primary care doctor. Your laboratory / imaging results were normal, 3) If you have any worsening of symptoms or any other concerns please return to the ED immediately. Return if worsening symptoms including fevers, headache, vomiting, visual or hearing disturbances, abdominal pain, chest pain, shortness of breath, syncope, dehydration, inability to take things by mouth/vomiting, altered mental status, or worsening concerning symptoms. 4) Please continue taking your home medications as directed. your medications on discharge include zofran every 8 hours as needed for nausea/vomiting . side effects may include upset stomach, abdominal pain, vomiting, or diarrhea. do not drink alcohol with your medications. Stay well hydrated and rest adequately. Make an appointment. If you cannot follow-up with your primary care doctor please return to the ED - Post Discharge Activity
[2019-04-02] MEDS ORDERED: LACTATED RINGERS SOLUTION 1,000 ML/1,000 ML INFUS.BAG IV ONE (11:07)
[2019-04-02] MEDS ORDERED: ONDANSETRON 4 MG/2 ML VIAL IVPUSH ONE (11:08)
--- NOTE | 2019-04-02 11:15 | PDOC ---
Attending Attestation - Resident Resident Name: Lakesha Benavidez - ED Attending Attestation I have performed the following: I have examined & evaluated the patient, The case was reviewed & discussed with the resident, I agree w/resident's findings & plan - HPI HPI: 04/02/19 11:14 63-year-old female with history of hypertension, hyperlipidemia, non-insulin- dependent diabetes mellitus, mitral valve prolapse, arthritis, asthma presenting with intermittent n/v x 3 days. she threw up her corn flakes this morning, last meal last night was pork chops. this morning she had 4X episodes of NBNB emesis. +loose BM, nonbloody today. denies food triggers, travel, sick contacts. also endorses mild headache, dizziness, nausea, vomiting; no cp or sob, fever or chills. she has chronic LE edema, no clear etiology identified PCP Dr Aviles. 04/02/19 11:50 04/02/19 12:53 04/02/19 12:55 - Physicial Exam PE: 04/02/19 11:14 Agree with the resident's HPI and PE as documented in the electronic medical record. NAD, well appearing, PERRL, EOMI, MMM, nl conjunctiva, anicteric; neck supple. lungs clear, RRR, soft holosystolic murmur. abdomen soft nontender. no cvat. no rebound or guarding. KUMAR x4, no focal neuro deficits. b/l nonpitting peripheral edema. normal color for ethnicity, WWP. no calf tenderness 04/02/19 12:54 - Medical Decision Making 04/02/19 11:14 See HPI for details. Prior notes reviewed, including admissions, discharges and consultations. Vital signs reviewed, wnl. laboratory results and imaging reviewed, basic labs and lytes wnl, notable for no acetones, normal VBG so doubt DKA. lytes and Cr normal, reassuring. UA_clear CXR_no acute chest pathology; clear lungs, no pna. Cardiac panel_neg trop, unremarkable bnp so doubt cardiac or cardiomyopathy or pulm edema/cardiac etiology. EKG normal sinus rhythm at 78 bpm, no interval abnormalities, narrow QRS, ST and T wave segments and morphology normal. nonischemic. ED course - given IVF and zofran, no episodes of emesis here. 04/02/19 12:55 - tylenol for mild KIRK, no focal neuro deficits, normal mentation and clear speech; no indication for CT imaging at this time. dizziness is nonvertigo with history and more likely n/v. able to ambulate to the BR feels clinically improved will rx zofran, supportive care and hydration, return cautions given Pt to be discharged in stable condition. Patient and family made aware of impression and plan, return precautions discussed (including but not limited to worsening pain or symptoms), fevers, or signs of infection, chest pain, respiratory distress, inability to tolerate oral intake, dehydration, syncope, or neurologic changes). Follow up with PMD as recommended, follow up information provided, take medications as instructed for duration of time. continue with supportive care, avoid triggers and precipitants. All questions answered to patient's satisfaction and expressed understanding and comfort with this. Patient does not suffer from an acute life-threatening medical condition at this time and is safe for outpatient follow-up. 04/02/19 12:57 04/02/19 14:47 04/02/19 14:47 04/02/19 14:47 04/02/19 14:48 Heart Score/ECG Review #1 ECG reviewed & interpreted by me at: 11:00 General ECG Interpretation: Sinus Rhythm, Normal Rate, Normal Intervals Compared to previous ECG there are: No significant change 04/02/19 11:18 EKG normal sinus rhythm at 78 bpm, no interval abnormalities, narrow QRS, ST and T wave segments and morphology normal.
[2019-04-02] MEDS ORDERED: ONDANSETRON 4 MG/2 ML VIAL ONE (11:37)
[2019-04-02 12:13] LABS: BASO % 0.5 % (0-2.0); EOS % 0.8 % (0-4.5); HEMOGLOBIN 12.5 GM/dL (10.7-15.3); LYMPH % 32.2 % (8-40); MCH 28.4 pg (25.7-33.7); MCHC 32.9 g/dl (32.0-36.0); MEAN CELL VOLUME 86.4 fl (80-96); MEAN PLT VOLUME 10.2 fl (7.5-11.1); MONO % 6.8 % (3.8-10.2); NEUT % 59.7 % (42.8-82.8); PLATELET COUNT 201 K/MM3 (134-434); WHITE BLOOD COUNT 7.4 K/mm3 (4.0-10.0)
[2019-04-02 12:23] LABS: VENOUS PC02 50.3 mmHg (41-51); VENOUS PH 7.35 (7.31-7.41)
[2019-04-02 12:39] LABS: N-TERMINAL BNP 201.9 pg/ml (5-125)
[2019-04-02 12:41] LABS: ALBUMIN 3.4 g/dl (3.4-5.0); ALK PHOS 118 U/L (45-117); ANION GAP 6 MMOL/L (8-16); BILIRUBIN,TOTAL 0.3 mg/dL (0.2-1); BLOOD UREA NITROGEN 15 mg/dL (7-18); CALCIUM 9.5 mg/dL (8.5-10.1); CHLORIDE 98 mmol/L (98-107); CO2 28 mmol/L (21-32); CREATININE 0.9 mg/dL (0.55-1.3); GLUCOSE,RANDOM 226 mg/dL (74-106); POTASSIUM 4.3 mmol/L (3.5-5.1); SGOT/AST 14 U/L (15-37); SGPT/ALT 28 U/L (13-61); SODIUM 132 mmol/L (136-145); TOT PROT 6.9 g/dl (6.4-8.2)
[2019-04-02] MEDS ORDERED: ACETAMINOPHEN 1000 MG/100 ML VIAL (NON FORMULARY) IVPB ONE (12:53)
--- NOTE | 2019-04-02 13:25 | EKG ---
Test Reason : Blood Pressure : / mmHG Vent. Rate : 078 BPM Atrial Rate : 078 BPM P-R Int : 168 ms QRS Dur : 086 ms QT Int : 384 ms P-R-T Axes : 059 034 049 degrees QTc Int : 437 ms NORMAL SINUS RHYTHM NORMAL ECG WHEN COMPARED WITH ECG OF 01-FEB-2019 13:56, NO SIGNIFICANT CHANGE WAS FOUND Confirmed by BULL SALAZAR MD ([id number]) on 04/02/2019 1:25:20 PM Referred By: Confirmed By:BULL SALAZAR MD
[2019-04-02 13:34] LABS: URINE APPEARANCE CLEAR; URINE BILIRUBIN NEGATIVE (NEGATIVE); URINE COLOR YELLOW; URINE GLUCOSE (UA) NEGATIVE (NEGATIVE); URINE KETONE NEGATIVE (NEGATIVE); URINE LEUK ESTERASE NEGATIVE (NEGATIVE); URINE NITRITE NEGATIVE (NEGATIVE); URINE PROTEIN NEGATIVE (NEGATIVE); URINE UROBILINOGEN 0.2 mg/dL (0.2-1.0)
[2019-04-02 13:35] LABS: ACETONE SERUM NEGATIVE (NEGATIVE)
== END 2019-04-02 14:47 | disposition home or self-care (01) ==
LOC: JER 10:33 → JERFT 10:33 → JER 14:47
PROC: 3E033NZ Introduction of Analgesics, Hypnotics, Sedatives into Peripheral Vein, Percutaneous Approach (ICD-10-PCS; principal; 2019-04-02)
PROC: 3E0337Z Introduction of Electrolytic and Water Balance Substance into Peripheral Vein, Percutaneous Approach (ICD-10-PCS; 2019-04-02)
PROC: 3E033GC Introduction of Other Therapeutic Substance into Peripheral Vein, Percutaneous Approach (ICD-10-PCS; 2019-04-02)
DX: R11.2 Nausea with vomiting, unspecified (principal); E11.9 Type 2 diabetes mellitus without complications
CPT/HCPCS: 36415; 71045-TC-FY; 80053; 81003; 82009; 82550; 82803; 83880; 84484; 85025; 93005; 93010; 96361; 96374; 96375; 99282-25; J0131

== ENCOUNTER 2019-04-23 17:15 | Emergency (ER) | payer OTHER ==
[2019-04-23 17:28] VITALS: TEMP 97.9; BMI 32.3
--- NOTE | 2019-04-23 17:34 | PDOC ---
Rapid Medical Evaluation Chief Complaint: Edema Time Seen by Provider: 04/23/19 17:26 Medical Evaluation: Allergies Allergy/AdvReac Type Severity Reaction Status Date / Time No Known Allergies Allergy Verified 04/23/19 17:25 Vital Signs Temp Pulse Resp BP Pulse Ox 97.9 F 71 17 152/78 98 04/23/19 17:25 04/23/19 17:25 04/23/19 17:25 04/23/19 17:25 04/23/19 17:25 04/23/19 17:33 Patient complaints of: lower ext edema, no redness or calf pain Patient on brief exam: 2+ pitting edema kedar, - homans Patient ordered for: labs Patient to proceed to the ED Discharge Disposition - Diagnosis Edema, Synovial cyst of popliteal space [Alexandre], right knee - Discharge Dispostion Disposition: HOME Condition at time of disposition: Improved - Prescriptions Prescriptions: Lisinopril 20 mg PO DAILY #7 tablet Methocarbamol [Robaxin -] 500 mg PO BID #8 tablet - Referrals Referrals: Bernardino Rodríguez DO [Staff Physician] - Zahra Aviles MD [Primary Care Provider] - - Patient Instructions Additional Instructions: You were evaluated for right leg pain. Ultrasound of the lower ext shows you have a bakers cysts in the right knee. You may also have sciatica. Please follow up with Ortho. Confirmed with your pharmacy, you have medications that have refills, please pick them up. If your symptoms worsen, or you develop any new symptoms, pls come to the ED immediately. Also make an appointment with your PCP this week. - Post Discharge Activity
[2019-04-23 18:39] LABS: ALBUMIN 3.6 g/dl (3.4-5.0); BILIRUBIN,TOTAL 0.3 mg/dL (0.2-1); BLOOD UREA NITROGEN 13.2 mg/dL (7-18); CREATININE 0.9 mg/dL (0.55-1.3); POTASSIUM 4.7 mmol/L (3.5-5.1); TOT PROT 7.2 g/dl (6.4-8.2)
--- NOTE | 2019-04-23 18:41 | PDOC ---
History of Present Illness - General Chief Complaint: Edema Stated Complaint: LEG PAIN Time Seen by Provider: 04/23/19 17:26 History Source: Patient - History of Present Illness Initial Comments: 04/23/19 19:03 PCP: Dr. Aviles Patient is a 63 year old female presented to the ED with the chief complaint of right sided leg pain, swelling of b/l legs and dizzy spell. As per the patient, she started noticing swelling of bilateral legs 2 weeks ago. It starts in the back, shoots down in right side. Patient reports yesterday while at work, she started dizzy 15 mins after she had lunch. She thought she had hypoglycemia, asked her coworker who helped her sit down, gave her honey bunch to eat, called EMS. When EMS arrived her finger sticks and BP was high. Patient was recommended to come to the ED however she refused, went home instead and rested. Today she states she doesn't have dizziness and headache. Pt reports she ran out her meds since 2 days. Pt says that she has an appointment with her PCP in June and doesn't want to wait. Past Medical Hx: HTN, HLD, DM, Arthritis Allergies: NKDA Past Surgical Hx Smoking/Alcohol/Drugs denies Past History - Past Medical History Allergies/Adverse Reactions: Allergies Allergy/AdvReac Type Severity Reaction Status Date / Time No Known Allergies Allergy Verified 04/23/19 17:25 Home Medications: Ambulatory Orders Aspirin 81 mg PO DAILY 03/03/14 Pramipexole Dihydrochloride [Mirapex -] 0.25 mg PO TID 03/03/14 Rosuvastatin Calcium [Crestor] 10 mg PO DAILY 03/03/14 Topiramate 50 mg PO DAILY 03/03/14 Fish Oil/Borage/Flax/Om3,6,9 1 [[place] 3-6-9 1,200 mg Softgel] 1 cap PO DAILY Omeprazole 20 mg PO DAILY 02/03/18 Lisinopril 10 mg PO ASDIR 09/03/18 Albuterol 0.083% Nebulizer Marj [Ventolin 0.083% Nebulizer Soln -] 1 amp NEB Q4H PRN amp 02/05/19 Amoxicillin/Potassium Clav [Augmentin 875-125 Tablet] 1 each PO BID 5 Days #10 tablet 02/05/19 Guaifenesin AC [Robitussin AC -] 5 ml PO TID PRN #1 liquid MDD 15 ml 02/05/19 Lactobacillus Acidophilus [Bacid -] 1 tab PO BID tab 02/05/19 Prednisone 10 mg PO ASDIR #22 tablet 02/05/19 Sitagliptin Phos/Metformin HCl [Janumet 50-500 mg Tablet] 2 tab PO BID #60 tablet 02/05/19 Sodium Chloride Nasal [place] [[place] Nasal [place] -] 2 spray NS BID PRN spray 02/05/19 Ondansetron [Zofran Odt -] 4 mg SL TID PRN #9 od.tablet 04/02/19 Lisinopril 20 mg PO DAILY #7 tablet 04/23/19 Methocarbamol [Robaxin -] 500 mg PO BID #8 tablet 04/23/19 Anemia: No Asthma: Yes Cancer: No Cardiac Disorders: Yes (MVP) CVA: No COPD: No DVT: No Dementia: No Diabetes: Yes (NIDDM) Dialysis: No GI Disorders: No Disorders: No HTN: No Hypercholesterolemia: Yes Kidney Stones: No Liver Disease: No Psychiatric Problems: No Seizures: No Thyroid Disease: No Lung CA: No - Surgical History Abdominal Surgery: No Appendectomy: No Cardiac Surgery: No Cholecystectomy: Yes (LAPAROSCOPIC) Gastric Stapling: No GI Surgery: No Lung Surgery: No Neurologic Surgery: No Orthopedic Surgery: Yes (RIGHT SHOULDER SURGERY) - Family Disease History Family Disease History: Heart Disease: Father - Immunization History Td Vaccination: Yes TDAP Vaccination: Yes Immunization Up to Date: Yes - Suicide/Smoking/Psychosocial Hx Smoking Status: No Smoking History: Never smoked Years of Tobacco Use: 0 Have you smoked in the past 12 months: Yes Number of Cigarettes Smoked Daily: 2 If you are a former smoker, when did you quit?: years ago Information on smoking cessation initiated: No 'Breaking Loose' booklet given: 03/03/14 Hx Alcohol Use: No Drug/Substance Use Hx: No Substance Use Type: None Hx Substance Use Treatment: No *Physical Exam - Vital Signs Last Vital Signs Temp Pulse Resp BP Pulse Ox 97.9 F 71 17 152/78 98 04/23/19 17:25 04/23/19 17:25 04/23/19 17:25 04/23/19 17:25 04/23/19 17:25 ED Treatment Course - LABORATORY CBC & Chemistry Diagram: 04/23/19 17:45 04/23/19 17:45 - ADDITIONAL ORDERS Additional order review: Laboratory Results 04/23/19 17:45 Sodium 135 L Potassium 4.7 Chloride 102 Carbon Dioxide 27 Anion Gap 6 L BUN 13.2 Creatinine 0.9 Est GFR (CKD-EPI)AfAm 78.87 Est GFR (CKD-EPI)NonAf 68.05 Random Glucose 240 H Calcium 9.0 Total Bilirubin 0.3 AST 22 ALT 27 Alkaline Phosphatase 119 H Total Protein 7.2 Albumin 3.6 Medical Decision Making - Medical Decision Making 04/23/19 20:40 Patient is a 63 year old female presented to the ED with right leg pain, dizzy spell and high BP. Pt hasn't picked up meds, hasn't taken meds in 2 days. Will send CBc, CMP, uA, Dopple of lower ext to r/o DVT for swelling of b/l legs. CXR Call placed to [facility] pharmacy. Buproprion XL 150 mg BID, Gabapentin 100 mg TID, Glipizide 2.5 mg tablet daily, Janumet 50/500 mg BID, Lisinopril 2.5 mg Daily, Omeprazole 20 mg once a day, pramipexole 1 mg daily, Rosuvastatin 20 mg, Topiramate 50 mg. Patient will be given all her home medication now and send home with prescription for Lisinopril. Pharmacist at [facility] confirms that all medications can be refilled. 04/23/19 22:18 Patient feels well. DVT ruled out. Right Alexandre's cyst. Patient feels better. She is hemodyamically stable to be discharged home with instructions. *DC/Admit/Observation/Transfer Diagnosis at time of Disposition: Synovial cyst of popliteal space [Alexandre], right knee Edema Qualifiers: Edema type: unspecified Qualified Code(s): R60.9 - Edema, unspecified - Discharge Dispostion Disposition: HOME Condition at time of disposition: Improved Decision to Admit order: No - Prescriptions Prescriptions: Lisinopril 20 mg PO DAILY #7 tablet Methocarbamol [Robaxin -] 500 mg PO BID #8 tablet - Referrals Referrals: Zahra Aviles MD [Primary Care Provider] - Bernardino Rodríguez DO [Staff Physician] - - Patient Instructions Additional Instructions: You were evaluated for right leg pain. Ultrasound of the lower ext shows you have a bakers cysts in the right knee. You may also have sciatica. Please follow up with Ortho. Confirmed with your pharmacy, you have medications that have refills, please pick them up. If your symptoms worsen, or you develop any new symptoms, pls come to the ED immediately. Also make an appointment with your PCP this week. - Post Discharge Activity
[2019-04-23] MEDS ORDERED: SODIUM CHLORIDE 500 ML IV STA (19:22)
[2019-04-23 19:24] LABS: BASO % 0.6 % (0-2.0); EOS % 0.9 % (0-4.5); HEMATOCRIT 39.7 % (32.4-45.2); HEMOGLOBIN 13.4 GM/dL (10.7-15.3); LYMPH % 29.4 % (8-40); MCH 28.8 pg (25.7-33.7); MCHC 33.6 g/dl (32.0-36.0); MEAN CELL VOLUME 85.6 fl (80-96); MEAN PLT VOLUME 10.5 fl (7.5-11.1); MONO % 6.1 % (3.8-10.2); RBC 4.64 M/mm3 (3.60-5.2); RDW 14.2 % (11.6-15.6); WHITE BLOOD COUNT 8.5 K/mm3 (4.0-10.0)
[2019-04-23 19:29] LABS: PLATELET COUNT 208 K/MM3 (134-434)
[2019-04-23] MEDS ORDERED: KETOROLAC TROMETHAMINE 30 MG/1 ML VIAL IVPUSH ONE (19:47)
[2019-04-23] MEDS ORDERED: METHOCARBAMOL 500 MG TABLET PO ONE (19:49)
[2019-04-23] MEDS ORDERED: KETOROLAC TROMETHAMINE 30 MG/1 ML VIAL ONE (19:57)
[2019-04-23] MEDS ORDERED: METHOCARBAMOL 500 MG TABLET ONE (19:57)
--- NOTE | 2019-04-23 20:05 | PDOC ---
Documentation entered by Nichole Puente SCRIBE, acting as scribe for Kirsty Leal DO. Kirsty Leal, DO: This documentation has been prepared by the Cindi kaur Mackenzie, SCRIBE, under my direction and personally reviewed by me in its entirety. I confirm that the documentation accurately reflects all work , treatment, procedures, and medical decision making performed by me. Attending Attestation - Resident Resident Name: Aditi Marquez - ED Attending Attestation I have performed the following: I have examined & evaluated the patient, The case was reviewed & discussed with the resident, I agree w/resident's findings & plan - HPI HPI: The patient is a 63 year old female, with a significant PMH of HTN and DM ( noncompliant with medications for the past week), who presents to the emergency department with right lower extremity pain and bilateral lower extremity edema. Patient describes right leg pain as constant, starting in her right buttock and radiating down her leg. Patient states leg swelling is alleviated when lying down with legs raised. Patient notes that she often gets yoni horses in both her legs. Patient also reports having a syncopal episode yesterday. Patient states she was unable to get an appointment with her physician to refill her medications until June. The patient denies chest pain, shortness of breath, headache and dizziness. Denies fever, chills, nausea, vomiting, diarrhea and constipation. Denies dysuria, frequency, urgency and hematuria. Allergies: NKA Past surgical history: None reported Social history: None reported PCP: Dr. Avilse 04/23/19 20:10 - Physicial Exam PE: Constitutional: Awake, alert, oriented. No acute distress. Head: Normocephalic. Atraumatic Eyes: PERRL. EOMI. Conjunctivae are not pale. ENT: Mucous membranes are moist and intact. Posterior pharynx without exudates or erythema. Uvula midline. Neck: Supple. Full ROM. No lymphadenopathy. Cardiovascular: Regular rate. Regular rhythm. S1, S2 regular. Distal pulses are 2+ and symmetric. Pulmonary/Chest: No evidence of respiratory distress. Clear to auscultation bilaterally No wheezing, rales or rhonchi. Abdominal: Soft and non-distended. There is no tenderness. No rebound, guarding or rigidity. No organomegaly. No palpable masses. Good bowel sounds. Back: No CVA tenderness. Extremities: (+) Right buttock tenderness to palpation. (+) Bilateral lower extremity swelling without pitting edema. Musculoskeletal: No cyanosis. No clubbing. Full range of motion in all extremities. No calf tenderness. Radial/pedal pulses are intact and 2+ bilaterally Skin: Skin is warm and dry. No petechiae. No purpura. Neurological: Alert and oriented to person, place, and time. Cranial nerves II -XII are grossly intact. Normal speech. Strength is grossly symmetric. No sensory deficits. Ambulates with a limp secondary to pain. Psychiatric: Good eye contact. Normal interaction, affect and behavior. 04/23/19 20:10 - Medical Decision Making 04/23/19 19:51 I, Dr. Kirsty Leal, DO, attest that this document has been prepared under my direction and personally reviewed by me in its entirety. I further attest, that it accurately reflects all work, treatment, procedures and medical decision -making performed by me. 04/23/19 19:52 a/p: 63yo female with hx of htn, hld, dm who ran out of her meds 2 days ago -yesterday felt lightheaded at work and had a syncopal episode - thought sugar was low, coworkers gave glucose and when medics arrived pt declined transfer to the ED -worsening R hip and R leg pain -pain from R buttock down R leg -pain x 4 days -denies trauma -denies back pain, no signs/symptoms of caude equina -also c/o leg swelling, no pitting edema, resolves with legs up, also hx of restless leg -follows with dr. aviles and christoph -will send labs, ekg, cxr, duplex ultrasound legs -will give toradol and robaxin for r leg pain -will monitor and reassess -will call xu for updated med list 04/23/19 20:05 pt denies cp/sob/palpitations felt lightheaded yesterday 04/23/19 20:55 labs reviewed resident discussed with xu, pt has refills of her medications, she just needs to pick them up 04/23/19 22:17 r bakers cyst cxr clear no dvt pt stable for dc to home Heart Score/ECG Review - ECG Intrepretation Comment:: 04/23/19 20:04 sinus at 69, nl axis, nl interval, no acute st/t wave findings
[2019-04-23] MEDS ORDERED: metFORMIN HCL 500 MG TABLET (FP) PO ONE (20:46)
[2019-04-23] MEDS ORDERED: glipiZIDE 5 MG TABLET (FP) PO ONE (20:46)
[2019-04-23] MEDS ORDERED: GABAPENTIN 100 MG CAPSULE (FP) PO ONE (20:46)
[2019-04-23] MEDS ORDERED: sitaGLIPtin PHOSPHATE 50 MG TABLET PO ONE (20:48)
[2019-04-23] MEDS ORDERED: PRAMIPEXOLE DIHYDROCHLORIDE 0.25 MG TABLET PO ONE (20:49)
[2019-04-23] MEDS ORDERED: LISINOPRIL 5 MG TABLET (FP) PO ONE (20:49)
[2019-04-23] MEDS ORDERED: TOPIRAMATE 25 MG TABLET (FP) PO ONE (20:50)
[2019-04-23] MEDS ORDERED: ROSUVASTATIN CA 20 MG TABLET (FP) PO ONE (20:50)
[2019-04-23] MEDS ORDERED: glipiZIDE 5 MG TABLET (FP) ONE (21:39)
[2019-04-23] MEDS ORDERED: sitaGLIPtin PHOSPHATE 50 MG TABLET ONE (21:40)
[2019-04-23] MEDS ORDERED: GABAPENTIN 100 MG CAPSULE (FP) ONE (21:40)
[2019-04-23] MEDS ORDERED: metFORMIN HCL 500 MG TABLET (FP) ONE (21:40)
[2019-04-23] MEDS ORDERED: LISINOPRIL 5 MG TABLET (FP) ONE (21:40)
[2019-04-23] MEDS ORDERED: TOPIRAMATE 25 MG TABLET (FP) ONE (21:41)
[2019-04-23 22:45] VITALS: BP 145/83; PULSE 68
--- NOTE | 2019-04-25 17:08 | EKG ---
Test Reason : Blood Pressure : / mmHG Vent. Rate : 069 BPM Atrial Rate : 069 BPM P-R Int : 170 ms QRS Dur : 086 ms QT Int : 412 ms P-R-T Axes : 059 044 050 degrees QTc Int : 441 ms NORMAL SINUS RHYTHM POSSIBLE ANTERIOR INFARCT , AGE UNDETERMINED ABNORMAL ECG WHEN COMPARED WITH ECG OF 02-APR-2019 11:01, NO SIGNIFICANT CHANGE WAS FOUND Confirmed by MD PAVITHRA, MISTY ([id number]) on 04/25/2019 5:08:38 PM Referred By: Confirmed By:MISTY ARSHAD MD
== END 2019-04-23 22:45 | disposition home or self-care (01) ==
LOC: JER 17:15
PROC: 3E0337Z Introduction of Electrolytic and Water Balance Substance into Peripheral Vein, Percutaneous Approach (ICD-10-PCS; principal; 2019-04-23)
PROC: 3E0333Z Introduction of Anti-inflammatory into Peripheral Vein, Percutaneous Approach (ICD-10-PCS; 2019-04-23)
DX: M71.21 Synovial cyst of popliteal space [Baker], right knee (principal)
CPT/HCPCS: 36415; 71046-TC-FY; 80053; 85025; 93005; 93010; 93970-TC; 96361; 96374; 99282-25

== ENCOUNTER 2019-12-24 18:51 | Emergency (ER) | payer OTHER ==
[2019-12-24 19:35] VITALS: BP 184/76; PULSE 87; TEMP 97.8; BMI 31.4
[2019-12-24] MEDS ORDERED: DEXAMETHASONE LIQUID 0.5 MG/5 ML PO ONE (21:15)
[2019-12-24] MEDS ORDERED: TERBUTALINE SULFATE 1 MG/1 ML VIAL SQ ONE ×2 (21:15→21:52)
[2019-12-24] MEDS ORDERED: ALBUTEROL SO4 2.5/IPRATROPIUM 0.5 INH SOL 3 ML VIAL.NEB. NEB ONE ×2 (21:15→21:51)
--- NOTE | 2019-12-24 21:15 | PDOC ---
History of Present Illness - General Chief Complaint: Respiratory Stated Complaint: FLU SYMPTOMS Time Seen by Provider: 12/24/19 20:49 - History of Present Illness Initial Comments: 12/24/19 20:49 Ms. Mata is a 64 yo female w/ pmh of DM, HTN, HLD, anxiety, depression who presents for revaluation of 10 day history of cough productive of thick phlegm. Patient reports she has been coughing so hard she urinates on self. Also endorses headache typical of her migraines over this time period as well as fever and chills. Reports her DM has been under good control w/ BGM's around 120. Denies other symptoms at this time. The patient denies chest pain, shortness of breath, and dizziness. Denies nausea , vomit, diarrhea and constipation. Denies dysuria, frequency, urgency and hematuria. Past History - Past Medical History Allergies/Adverse Reactions: Allergies Allergy/AdvReac Type Severity Reaction Status Date / Time No Known Allergies Allergy Verified 12/24/19 19:35 Home Medications: Ambulatory Orders Aspirin 81 mg PO DAILY 03/03/14 Pramipexole Dihydrochloride [Mirapex -] 0.25 mg PO TID 03/03/14 Rosuvastatin Calcium [Crestor] 10 mg PO DAILY 03/03/14 Topiramate 50 mg PO DAILY 03/03/14 Fish Oil/Borage/Flax/Om3,6,9 1 [[place] 3-6-9 1,200 mg Softgel] 1 cap PO DAILY Omeprazole 20 mg PO DAILY 02/03/18 Lisinopril 10 mg PO ASDIR 09/03/18 Albuterol 0.083% Nebulizer Marj [Ventolin 0.083% Nebulizer Soln -] 1 amp NEB Q4H PRN amp 02/05/19 Amoxicillin/Potassium Clav [Augmentin 875-125 Tablet] 1 each PO BID 5 Days #10 tablet 02/05/19 Guaifenesin AC [Robitussin AC -] 5 ml PO TID PRN #1 liquid MDD 15 ml 02/05/19 Lactobacillus Acidophilus [Bacid -] 1 tab PO BID tab 02/05/19 Prednisone 10 mg PO ASDIR #22 tablet 02/05/19 Sitagliptin Phos/Metformin HCl [Janumet 50-500 mg Tablet] 2 tab PO BID #60 tablet 02/05/19 Sodium Chloride Nasal [place] [[place] Nasal [place] -] 2 spray NS BID PRN spray 02/05/19 Ondansetron [Zofran Odt -] 4 mg SL TID PRN #9 od.tablet 04/02/19 Lisinopril 20 mg PO DAILY #7 tablet 04/23/19 Methocarbamol [Robaxin -] 500 mg PO BID #8 tablet 04/23/19 Azithromycin [Zithromax -] 250 mg PO UTDICT #6 tab 12/24/19 Azithromycin [Zithromax 250mg Tablets -] 250 mg PO DAILY 4 Days #4 tab 12/24/19 Anemia: No Asthma: Yes Cancer: No Cardiac Disorders: Yes (MVP) CVA: No COPD: No DVT: No Dementia: No Diabetes: Yes (NIDDM) Dialysis: No GI Disorders: No Disorders: No HTN: No Hypercholesterolemia: Yes Kidney Stones: No Liver Disease: No Psychiatric Problems: No Seizures: No Thyroid Disease: No Lung CA: No - Surgical History Abdominal Surgery: No Appendectomy: No Cardiac Surgery: No Cholecystectomy: Yes (LAPAROSCOPIC) Gastric Stapling: No GI Surgery: No Lung Surgery: No Neurologic Surgery: No Orthopedic Surgery: Yes (RIGHT SHOULDER SURGERY) - Immunization History Td Vaccination: Yes TDAP Vaccination: Yes Immunization Up to Date: Yes - Psycho Social/Smoking Cessation Hx Smoking Status: No Smoking History: Never smoked Years of Tobacco Use: 0 Have you smoked in the past 12 months: Yes Number of Cigarettes Smoked Daily: 2 If you are a former smoker, when did you quit?: years ago 'Breaking Loose' booklet given: 03/03/14 Hx Alcohol Use: No Drug/Substance Use Hx: No Substance Use Type: None Hx Substance Use Treatment: No Review of Systems - Review of Systems Comments:: 12/24/19 21:21 GENERAL/CONSTITUTIONAL: +Intermittent fever/chills. No weakness. HEAD, EYES, EARS, NOSE AND THROAT: No change in vision. No ear pain or discharge. No sore throat. CARDIOVASCULAR: +SOB associated w/ cough. No chest pain RESPIRATORY: +Cough w/ thick phlegm. No wheezing, or hemoptysis. GASTROINTESTINAL: No nausea, vomiting, diarrhea or constipation. GENITOURINARY: No dysuria, frequency, or change in urination. MUSCULOSKELETAL: No joint or muscle swelling or pain. No neck or back pain. SKIN: No rash NEUROLOGIC: +Headache as described. No vertigo, loss of consciousness, or change in strength/sensation. ENDOCRINE: No increased thirst. No abnormal weight change HEMATOLOGIC/LYMPHATIC: No anemia, easy bleeding, or history of blood clots. ALLERGIC/IMMUNOLOGIC: No hives or skin allergy. *Physical Exam - Vital Signs Last Vital Signs Temp Pulse Resp BP Pulse Ox 97.8 F 87 18 184/76 H 97 12/24/19 19:32 12/24/19 19:32 12/24/19 19:32 12/24/19 19:32 12/24/19 19:32 - Physical Exam 12/24/19 21:22 GENERAL: Awake, alert, and fully oriented, in no acute distress HEAD: No signs of trauma, normocephalic, atraumatic EYES: PERRLA, EOMI, sclera anicteric, conjunctiva clear ENT: +Thick phlegm noted. Auricles normal inspection, hearing grossly normal, nares patent, oropharynx clear without exudates. Moist mucosa NECK: Normal ROM, supple, no lymphadenopathy, JVD, or masses LUNGS: +Diffuse coarse lung sounds appreciated. No distress, speaks full sentences HEART: Regular rate and rhythm, normal S1 and S2, no murmurs, rubs or gallops, peripheral pulses normal and equal bilaterally. ABDOMEN: Soft, nontender, normoactive bowel sounds. No guarding, no rebound. No masses EXTREMITIES: Normal inspection, Normal range of motion, no edema. No clubbing or cyanosis. NEUROLOGICAL: Cranial nerves II through XII grossly intact. Normal speech, normal gait, no focal sensorimotor deficits SKIN: Warm, Dry, normal turgor, no rashes or lesions noted. ED Treatment Course - LABORATORY CBC & Chemistry Diagram: 12/24/19 21:30 12/24/19 23:15 Medical Decision Making - Medical Decision Making 12/24/19 23:55 Ms. Mata is a 64 yo female w/ pmh as described who presents for evaluation of viral symptoms. Patient evaluated with CXR (negative), and labs as below. CXR negative for acute process, patient improved following symptomatic meds and ABX. Patient labs grossly wnl as below. ABX sent for prophylaxis to patient's pharmacy. Discharging to home. Laboratory Results - last 24 hr 12/24/19 12/24/19 12/24/19 21:30 21:30 23:15 WBC 13.9 H RBC 4.61 Hgb 13.3 Hct 39.3 MCV 85.3 MCH 29.0 MCHC 34.0 RDW 13.9 Plt Count 252 D MPV 10.1 Absolute Neuts (auto) 10.5 H Neutrophils % 75.4 Lymphocytes % 16.6 D Monocytes % 5.9 Eosinophils % 1.2 Basophils % 0.9 Nucleated RBC % 0 Platelet Estimate Adequate Platelet Comment No clumping noted Sodium Cancelled 140 Potassium Cancelled 3.7 Chloride Cancelled 105 Carbon Dioxide Cancelled 27 Anion Gap Cancelled 7 L BUN Cancelled 12.2 Creatinine Cancelled 0.7 Est GFR (CKD-EPI)AfAm Cancelled 106.12 Est GFR (CKD-EPI)NonAf Cancelled 91.56 Random Glucose Cancelled 177 H Calcium Cancelled 8.9 Total Bilirubin Cancelled 0.5 AST Cancelled 15 ALT Cancelled 22 Alkaline Phosphatase Cancelled 119 H Total Protein Cancelled 7.1 Albumin Cancelled 3.1 L Discharge - Discharge Information Problems reviewed: Yes Clinical Impression/Diagnosis: Pneumonia Qualifiers: Pneumonia type: due to unspecified organism Laterality: unspecified laterality Lung location: unspecified part of lung Qualified Code(s): J18.9 - Pneumonia, unspecified organism Disposition: HOME - Additional Discharge Information Prescriptions: Azithromycin [Zithromax -] 250 mg PO UTDICT #6 tab Azithromycin [Zithromax 250mg Tablets -] 250 mg PO DAILY 4 Days #4 tab - Follow up/Referral Referrals: Zahra Aviles MD [Primary Care Provider] - - Patient Discharge Instructions Patient Printed Discharge Instructions: DI for Pneumonia -- Adult Additional Instructions: You were evaluated today in the ER for your symptoms. We started you on Antibiotics in the ER and sent a prescription to your pharmacy. Please follow- up with primary care provider later this week for further evaluation. Take all medications as proscribed. Return to ER if any fever, chills, pain, or other concerning symptoms. - Post Discharge Activity Work/Back to School Note: Back to Work
[2019-12-24] MEDS ORDERED: AZITHROMYCIN IVPB 500 MG in DEXTROSE 5%-WATER - 250 ML IVPB ONE (21:16)
[2019-12-24] MEDS ORDERED: CEFTRIAXONE 1 GM in DEXTROSE 5%-WATER - 50 ML IVPB ONE (21:16)
--- NOTE | 2019-12-24 21:38 | PDOC ---
Attending Attestation - Resident Resident Name: LensaimaPengMatt - ED Attending Attestation I have performed the following: I have examined & evaluated the patient, The case was reviewed & discussed with the resident, I agree w/resident's findings & plan - HPI HPI: 12/24/19 21:34 Pt comes with SOB; sinusitis, cough and coughing up sputum and flecks of blood and asthma exacerbation. - Physicial Exam PE: 12/24/19 21:35 Normal exam +warm to the touch +frontal sinusitis nasal congestion otherwise HEENT normal Pt is tearful Coughing up clear sputum with flecks of blood Pt has coarse breath sounds bilaterally Pt has normal abd and flank - Medical Decision Making 12/24/19 22:22 WBC slightly elevated 13+ Chem pending Pt will get IV abx and asthme treatment and she will be sent home with zpak when she is feeling better 12/24/19 23:26 Awaiting CXR CBC result pending 12/26/19 04:20 Pt stable to go home
[2019-12-24] MEDS ORDERED: DEXAMETHASONE SOD PHOSPHATE 10 MG/1 ML VIAL ONE (21:51)
[2019-12-24] MEDS ORDERED: AZITHROMYCIN IVPB 500 MG/250 ML BAG IVPB ONE (21:52)
[2019-12-24] MEDS ORDERED: cefTRIAXone SODIUM 1 GM VIAL ONE (21:53)
[2019-12-24 22:03] LABS: BASO % 0.9 % (0-2.0); EOS % 1.2 % (0-4.5); HEMATOCRIT 39.3 % (32.4-45.2); HEMOGLOBIN 13.3 GM/dL (10.7-15.3); LYMPH % 16.6 % (8-40); MEAN CELL VOLUME 85.3 fl (80-96); MEAN PLT VOLUME 10.1 fl (7.5-11.1); MONO % 5.9 % (3.8-10.2); NEUT % 75.4 % (42.8-82.8); RBC 4.61 M/mm3 (3.60-5.2); RDW 13.9 % (11.6-15.6); WHITE BLOOD COUNT 13.9 K/mm3 (4.0-10.0)
[2019-12-24 22:47] LABS: PLATELET COUNT 252 K/MM3 (134-434); PLATELET ESTIMATE ADEQUATE
[2019-12-24] MEDS ORDERED: ACETAMINOPHEN 1000 MG/100 ML VIAL (NON FORMULARY) IVPB ONE (23:09)
[2019-12-24 23:51] LABS: ALBUMIN 3.1 g/dl (3.4-5.0); BILIRUBIN,TOTAL 0.5 mg/dL (0.2-1); BLOOD UREA NITROGEN 12.2 mg/dL (7-18); CALCIUM 8.9 mg/dL (8.5-10.1); CREATININE 0.7 mg/dL (0.55-1.3); POTASSIUM 3.7 mmol/L (3.5-5.1); TOT PROT 7.1 g/dl (6.4-8.2)
== END 2019-12-25 01:41 | disposition home or self-care (01) ==
LOC: JER 18:51
PROC: 3E0F7GC Introduction of Other Therapeutic Substance into Respiratory Tract, Via Natural or Artificial Opening (ICD-10-PCS; principal; 2019-12-24)
PROC: 3E03329 Introduction of Other Anti-infective into Peripheral Vein, Percutaneous Approach (ICD-10-PCS; 2019-12-24)
PROC: 3E023GC Introduction of Other Therapeutic Substance into Muscle, Percutaneous Approach (ICD-10-PCS; 2019-12-24)
DX: J18.9 Pneumonia, unspecified organism (principal); I10 Essential (primary) hypertension; E78.00 Pure hypercholesterolemia, unspecified; F41.9 Anxiety disorder, unspecified; F32.9 Major depressive disorder, single episode, unspecified; E11.9 Type 2 diabetes mellitus without complications; Z79.84 Long term (current) use of oral hypoglycemic drugs
CPT/HCPCS: 36415; 71046-TC-FY; 80053; 85025; 87040; 94640; 96368; 96372; 99284-25; C8952

== ENCOUNTER 2021-01-29 10:43 | Emergency (ER) | payer OTHER ==
[2021-01-29 11:26] VITALS: BP 142/79; PULSE 97; TEMP 98.2; BMI 32.3
== END 2021-01-29 13:02 | disposition home or self-care (01) ==
LOC: JER 10:43
DX: U07.1 COVID-19 (principal); J30.1 Allergic rhinitis due to pollen
CPT/HCPCS: 99283-25; C9803; U0003

== ENCOUNTER 2021-01-30 11:04 | Emergency (ER) | payer OTHER ==
[2021-01-30] MEDS ORDERED: BAMLANIVIMAB 700 MG, ETESEVIMAB 1,400 MG in SODIUM CHLORIDE 250 ML IVPB ONE (11:14)
[2021-01-30 11:29] VITALS: BMI 31.3
[2021-01-30 11:52] LABS: BASO % 0.8 % (0-2.0); EOS % 1.7 % (0-4.5); HEMOGLOBIN 14.1 GM/dL (10.7-15.3); LYMPH % 18.1 % (8-40); MCH 28.3 pg (25.7-33.7); MCHC 32.8 g/dl (32.0-36.0); MEAN CELL VOLUME 86.5 fl (80-96); MEAN PLT VOLUME 10.4 fl (7.5-11.1); MONO % 12.9 % (3.8-10.2); NEUT % 66.5 % (42.8-82.8); PLATELET COUNT 226 K/MM3 (134-434); RBC 4.97 M/mm3 (3.60-5.2); RDW 14.4 % (11.6-15.6); WHITE BLOOD COUNT 8.3 K/mm3 (4.0-10.0)
[2021-01-30 12:15] VITALS: PULSE 86; TEMP 98.9
[2021-01-30 12:17] LABS: CALCIUM 9.4 mg/dL (8.5-10.1)
[2021-01-30 12:20] LABS: CREATININE 1.1 mg/dL (0.55-1.3); POTASSIUM 4.5 mmol/L (3.5-5.1)
[2021-01-30 14:23] VITALS: BP 133/87
== END 2021-01-30 14:40 | disposition home or self-care (01) ==
LOC: JCOVINFU 11:04
DX: U07.1 COVID-19 (principal)
CPT/HCPCS: 36415; 80048; 85025; 99284-25; M0239; Q0239; Q0245

== ENCOUNTER 2021-02-09 16:28 | Emergency (ER) | payer OTHER ==
[2021-02-09 16:46] VITALS: BP 118/78; PULSE 84; TEMP 98; BMI 28.1
== END 2021-02-09 17:25 | disposition home or self-care (01) ==
LOC: JER 16:28
DX: J30.89 Other allergic rhinitis (principal)
CPT/HCPCS: 99281-25

== ENCOUNTER 2021-07-02 20:40 | Emergency (ER) | payer OTHER ==
[2021-07-02 21:47] VITALS: BP 120/79; PULSE 82; TEMP 97.7; BMI 31.3
[2021-07-02] MEDS ORDERED: ERYTHROMYCIN 0.5% OPHTHALMIC OINTMENT 3.5 GM TUBE OU ONE (22:44)
[2021-07-02] MEDS ORDERED: FLUORESCEIN NA 1 EA STRIP OU ONE (22:44)
[2021-07-02] MEDS ORDERED: FLUORESCEIN NA 1 EA STRIP ONE ×2 (22:47→22:53)
[2021-07-02] MEDS ORDERED: ERYTHROMYCIN 0.5% OPHTHALMIC OINTMENT 3.5 GM TUBE ONE (22:47)
== END 2021-07-02 23:20 | disposition home or self-care (01) ==
LOC: JER 20:40 → JERFT 20:40
DX: S05.01XA Injury of conjunctiva and corneal abrasion without foreign body, right eye, initial encounter (principal); Y99.9 Unspecified external cause status
CPT/HCPCS: 99283-25

== ENCOUNTER 2022-02-11 21:40 | Emergency (ER) | payer OTHER ==
[2022-02-11 21:48] VITALS: BP 133/79; PULSE 99; TEMP 100.2; BMI 27.3
[2022-02-11] MEDS ORDERED: LACTATED RINGERS SOLUTION 1000 ML INFUS.BAG IV ONE (23:08)
[2022-02-11] MEDS ORDERED: ONDANSETRON 4 MG/2 ML VIAL IVPUSH ONE (23:09)
[2022-02-11] MEDS ORDERED: ONDANSETRON 4 MG/2 ML VIAL ONE (23:15)
[2022-02-11 23:39] LABS: BASO % 0.7 % (0-2.0); HEMOGLOBIN 13.2 GM/dL (10.7-15.3); LYMPH % 26.2 % (8-40); MCHC 33.8 g/dl (32.0-36.0); MEAN CELL VOLUME 85.8 fl (80-96); MEAN PLT VOLUME 9.1 fl (7.5-11.1); NEUT % 58.1 % (42.8-82.8); PLATELET COUNT 207 10^3/uL (134-434); RBC 4.55 M/mm3 (3.60-5.2); RDW 14.3 % (11.6-15.6); WHITE BLOOD COUNT 7.6 K/mm3 (4.0-10.0)
[2022-02-12 00:02] LABS: CALCIUM 9.1 mg/dL (8.5-10.1)
[2022-02-12 00:03] LABS: ALBUMIN 3.3 g/dl (3.4-5.0); BLOOD UREA NITROGEN 22.9 mg/dL (7-18)
[2022-02-12 00:06] LABS: CREATININE 1.1 mg/dL (0.55-1.3)
[2022-02-12 00:07] LABS: BILIRUBIN,TOTAL 0.2 mg/dL (0.2-1)
[2022-02-12 00:08] LABS: TOT PROT 7.1 g/dl (6.4-8.2)
== END 2022-02-12 01:15 | disposition home or self-care (01) ==
LOC: JER 21:40
PROC: 3E033GC Introduction of Other Therapeutic Substance into Peripheral Vein, Percutaneous Approach (ICD-10-PCS; principal; 2022-02-11)
DX: U07.1 COVID-19 (principal)
CPT/HCPCS: 36415; 80053; 85025; 87804; 87807; 96374; 99284-25; C9803-CS; U0003; U0005

== ENCOUNTER 2023-01-25 02:02 | Emergency (ER) | payer OTHER ==
[2023-01-25 02:17] VITALS: RESP 18; BMI 29.7
[2023-01-25] MEDS ORDERED: ACETAMINOPHEN 1000 MG/100 ML BAG IVPB ONE (02:59)
[2023-01-25] MEDS ORDERED: ONDANSETRON 4 MG/2 ML VIAL IVPUSH ONE (02:59)
[2023-01-25] MEDS ORDERED: SODIUM CHLORIDE 0.9% 500 ML INFUS.BAG IV ONE ×2 (02:59→06:24)
[2023-01-25] MEDS ORDERED: FAMOTIDINE 20 MG/50 ML IVPB 20 MG/50 ML MG IVPB ONE ×2 (02:59→03:27)
[2023-01-25] MEDS ORDERED: MAG HYDROX/AL HYDROX/SIMETH 30 ML UNIT-DOSE CUP PO ONE (02:59)
[2023-01-25] MEDS ORDERED: ACETAMINOPHEN INJECTION 100 ML IVPB ONE (03:25)
[2023-01-25] MEDS ORDERED: ONDANSETRON 4 MG/2 ML VIAL ONE (03:26)
[2023-01-25] MEDS ORDERED: MAG HYDROX/AL HYDROX/SIMETH 30 ML UNIT-DOSE CUP ONE (03:28)
[2023-01-25 03:41] LABS: HEMATOCRIT 40.6 % (32.4-45.2); HEMOGLOBIN 13.5 GM/dL (10.7-15.3); MCH 28.7 pg (25.7-33.7); MCHC 33.2 g/dl (32.0-36.0); MEAN CELL VOLUME 86.3 fl (80-96); MEAN PLT VOLUME 9.8 fl (7.5-11.1); PLATELET COUNT 236 10^3/uL (134-434); RBC 4.71 M/mm3 (3.60-5.2); RDW 14.9 % (11.6-15.6); WHITE BLOOD COUNT 7.7 K/mm3 (4.0-10.0)
[2023-01-25 03:58] LABS: URINE APPEARANCE CLEAR; URINE BILIRUBIN NEGATIVE (NEGATIVE); URINE COLOR YELLOW; URINE GLUCOSE (UA) 3+ (NEGATIVE); URINE KETONE 3+ (NEGATIVE); URINE LEUK ESTERASE NEGATIVE (NEGATIVE); URINE NITRITE NEGATIVE (NEGATIVE); URINE PROTEIN NEGATIVE (NEGATIVE); URINE UROBILINOGEN 0.2 mg/dL (0.2-1.0)
[2023-01-25 04:07] LABS: CALCIUM 8.6 mg/dL (8.5-10.1)
[2023-01-25 04:08] LABS: ALBUMIN 3.5 g/dl (3.4-5.0); MAGNESIUM 1.8 mg/dL (1.8-2.4)
[2023-01-25 04:10] LABS: CREATININE 0.9 mg/dL (0.55-1.3)
[2023-01-25 04:12] LABS: BILIRUBIN,TOTAL 0.3 mg/dL (0.2-1); TOT PROT 7.2 g/dl (6.4-8.2)
[2023-01-25] MEDS ORDERED: LACTATED RINGERS SOLUTION 1000 ML INFUS.BAG IV ONE (06:16)
[2023-01-25] MEDS ORDERED: SIMETHICONE 80 MG TAB.CHEW (FP) PO ONE (06:24)
[2023-01-25] MEDS ORDERED: SIMETHICONE 80 MG TAB.CHEW (FP) ONE (06:31)
[2023-01-25 07:10] VITALS: BP 117/58; PULSE 88; TEMP 98.4
== END 2023-01-25 07:14 | disposition home or self-care (01) ==
LOC: JER 02:02
PROC: 3E033GC Introduction of Other Therapeutic Substance into Peripheral Vein, Percutaneous Approach (ICD-10-PCS; principal; 2023-01-25)
PROC: 3E033NZ Introduction of Analgesics, Hypnotics, Sedatives into Peripheral Vein, Percutaneous Approach (ICD-10-PCS; 2023-01-25)
PROC: 3E033GC Introduction of Other Therapeutic Substance into Peripheral Vein, Percutaneous Approach (ICD-10-PCS; 2023-01-25)
DX: R10.84 Generalized abdominal pain (principal); R19.7 Diarrhea, unspecified; Z20.822 Contact with and (suspected) exposure to COVID-19
CPT/HCPCS: 0241U-QW; 36415; 74177-TC; 80053; 81003; 83605; 83690; 83735; 85027; 87086; 93005; 93010; 96365; 96375; 99285-25; Q9967

== ENCOUNTER 2023-10-12 17:22 | Observation (INO) | payer OTHER ==
[2023-10-12] MEDS ORDERED: SODIUM CHLORIDE 0.9% 500 ML INFUS.BAG IV ONE ×2 (17:58→19:59)
[2023-10-12] MEDS ORDERED: ACETAMINOPHEN 1000 MG/100 ML BAG IVPB ONE (17:59)
[2023-10-12] MEDS ORDERED: METOCLOPRAMIDE HCL INJECTION 10 MG/2 ML VIAL IVPUSH ONE (17:59)
[2023-10-12] MEDS ORDERED: ACETAMINOPHEN INJECTION 100 ML IVPB ONE (18:06)
[2023-10-12] MEDS ORDERED: METOCLOPRAMIDE HCL INJECTION 10 MG/2 ML VIAL ONE (18:06)
[2023-10-12 18:30] LABS: BASO % 0.3 % (0-2.0); EOS % 0.2 % (0-4.5); HEMATOCRIT 40.3 % (32.4-45.2); HEMOGLOBIN 13.4 GM/dL (10.7-15.3); LYMPH % 6.7 % (8-40); MCH 28.4 pg (25.7-33.7); MCHC 33.3 g/dl (32.0-36.0); MEAN CELL VOLUME 85.4 fl (80-96); MEAN PLT VOLUME 10.1 fl (7.5-11.1); MONO % 9.2 % (3.8-10.2); NEUT % 83.6 % (42.8-82.8); PLATELET COUNT 213 10^3/uL (134-434); RBC 4.72 M/mm3 (3.60-5.2); RDW 14.1 % (11.6-15.6); WHITE BLOOD COUNT 10.2 K/mm3 (4.0-10.0)
[2023-10-12 18:38] LABS: INR 1.2 (0.83-1.09); PROTHROMBIN TIME (PATIENT) 13.9 SEC (9.7-13.0)
[2023-10-12 18:41] LABS: ACTIVATED PTT 29.9 SECONDS (25.2-36.5)
[2023-10-12 20:31] LABS: POTASSIUM 4.3 mmol/L (3.5-5.1)
[2023-10-12 20:33] LABS: ALBUMIN 3.4 g/dl (3.4-5.0); CALCIUM 8.7 mg/dL (8.5-10.1)
[2023-10-12 20:34] LABS: BLOOD UREA NITROGEN 11.3 mg/dL (7-18); MAGNESIUM 1.2 mg/dL (1.8-2.4)
[2023-10-12 20:36] LABS: CREATININE 0.8 mg/dL (0.55-1.3)
[2023-10-12 20:38] LABS: BILIRUBIN,TOTAL 0.3 mg/dL (0.2-1); TOT PROT 7.1 g/dl (6.4-8.2)
[2023-10-12 20:41] LABS: N-TERMINAL BNP 215.2 pg/ml (5-125)
[2023-10-12] MEDS ORDERED: KETOROLAC TROMETHAMINE 15 MG/ML VIAL IVPUSH ONE (20:43)
[2023-10-12] MEDS ORDERED: KETOROLAC TROMETHAMINE 15 MG/ML VIAL ONE (20:45)
[2023-10-12] MEDS ORDERED: MAGNESIUM SULF 50% (8.12 MEQ/2 ML-1 GM VIAL) IVPB ONE ×2 (21:01→22:37)
[2023-10-12] MEDS ORDERED: MAGNESIUM SULFATE IN WATER 2 GM/50 ML IVPB IVPB ONE ×2 (21:10→23:19)
[2023-10-12] MEDS ORDERED: SODIUM CHLORIDE NASAL SPRAY 44 ML BOTTLE NS PRN (23:40)
[2023-10-13] MEDS ORDERED: KETOROLAC TROMETHAMINE 30 MG/1 ML VIAL IVPUSH ONE
[2023-10-13] MEDS ORDERED: OSELTAMIVIR PHOSPHATE 75 MG CAPSULE ONE (00:09)
[2023-10-13] MEDS ORDERED: KETOROLAC TROMETHAMINE 30 MG/1 ML VIAL ONE (00:09)
[2023-10-13] MEDS ORDERED: GABAPENTIN 400 MG CAPSULE ONE (00:09)
[2023-10-13] MEDS: GABAPENTIN 400 MG CAPSULE PO SCH ×4 (00:18→22:16)
[2023-10-13] MEDS: OSELTAMIVIR PHOSPHATE 75 MG CAPSULE PO SCH ×3 (00:18→22:16)
[2023-10-13 04:56] VITALS: BMI 31.4
[2023-10-13] MEDS: INSULIN SLIDING SCALE (NOVOLOG) 1 VIAL SQ SCH ×4 (06:40→22:22)
[2023-10-13 06:47] LABS: EPI CELLS 2 /uL (0-25.1); HYALINE CASTS 0 /uL (0-3.1); URINE APPEARANCE Error; URINE BACTERIA >9,000 /uL (0-1359); URINE BILIRUBIN NEGATIVE (NEGATIVE); URINE COLOR YELLOW; URINE GLUCOSE (UA) NEGATIVE (NEGATIVE); URINE KETONE 2+ (NEGATIVE); URINE LEUK ESTERASE NEGATIVE (NEGATIVE); URINE NITRITE POSITIVE (NEGATIVE); URINE PROTEIN NEGATIVE (NEGATIVE); URINE RBC 8 /uL (0-23.9); URINE UROBILINOGEN 0.2 mg/dL (0.2-1.0); URINE WBC 5 /uL (0-25.8)
[2023-10-13] MEDS: TOPIRAMATE 25 MG TABLET PO SCH (10:34)
[2023-10-13] MEDS: FAMOTIDINE 20 MG TABLET PO SCH (10:34)
[2023-10-13] MEDS: ASPIRIN 81 MG CHEWABLE TABLETS PO SCH (10:34)
[2023-10-13] MEDS: ENOXAPARIN NA (PORCINE) 40 MG/0.4 ML DISP.SYRIN SQ SCH (10:34)
[2023-10-13] MEDS: LACTOBACILLUS ACIDOPHILUS 1 TABLET PO SCH ×2 (10:34→22:16)
[2023-10-13] MEDS: LISINOPRIL 10 MG TABLET PO SCH (10:34)
[2023-10-13 10:53] LABS: HEMATOCRIT 37.5 % (32.4-45.2); HEMOGLOBIN 12.3 GM/dL (10.7-15.3); MCH 28.1 pg (25.7-33.7); MCHC 32.7 g/dl (32.0-36.0); MEAN CELL VOLUME 85.7 fl (80-96); PLATELET COUNT 181 10^3/uL (134-434); RBC 4.37 M/mm3 (3.60-5.2); RDW 14.2 % (11.6-15.6); WHITE BLOOD COUNT 6.7 K/mm3 (4.0-10.0)
[2023-10-13 11:15] LABS: CALCIUM 7.8 mg/dL (8.5-10.1)
[2023-10-13 11:16] LABS: MAGNESIUM 2.2 mg/dL (1.8-2.4)
[2023-10-13 11:19] LABS: CREATININE 0.7 mg/dL (0.55-1.3)
[2023-10-13] MEDS ORDERED: ACETAMINOPHEN 325 MG TABLET (FP) PO PRN (12:05)
[2023-10-13] MEDS: ACETAMINOPHEN 1000 MG/100 ML BAG IVPB PRN ×2 (12:32→22:14)
[2023-10-13] MEDS: LIDOCAINE 4% PATCH TP SCH (13:32)
[2023-10-13] MEDS: SODIUM CHLORIDE 1,000 ML IV SCH (13:32)
[2023-10-13] MEDS: ROSUVASTATIN CA 20 MG TABLET PO SCH (22:16)
[2023-10-13] MEDS: LIDOCAINE PATCH REMOVAL MC SCH (22:17)
[2023-10-14] MEDS: SODIUM CHLORIDE 1,000 ML IV SCH (01:26)
[2023-10-14] MEDS: GABAPENTIN 400 MG CAPSULE PO SCH ×3 (06:13→21:52)
[2023-10-14] MEDS: INSULIN SLIDING SCALE (NOVOLOG) 1 VIAL SQ SCH ×4 (06:26→22:01)
[2023-10-14 08:44] LABS: BASO % 0.4 % (0-2.0); EOS % 0.5 % (0-4.5); HEMATOCRIT 35.8 % (32.4-45.2); HEMOGLOBIN 11.8 GM/dL (10.7-15.3); LYMPH % 16.6 % (8-40); MCH 28.6 pg (25.7-33.7); MEAN CELL VOLUME 86.6 fl (80-96); MEAN PLT VOLUME 9.7 fl (7.5-11.1); NEUT % 72.5 % (42.8-82.8); PLATELET COUNT 178 10^3/uL (134-434); RBC 4.13 M/mm3 (3.60-5.2); RDW 14.2 % (11.6-15.6)
[2023-10-14 09:10] LABS: CALCIUM 7.7 mg/dL (8.5-10.1)
[2023-10-14 09:11] LABS: BLOOD UREA NITROGEN 13.9 mg/dL (7-18); MAGNESIUM 1.8 mg/dL (1.8-2.4)
[2023-10-14 09:14] LABS: BILIRUBIN,TOTAL 0.4 mg/dL (0.2-1); CREATININE 0.7 mg/dL (0.55-1.3); TOT PROT 5.9 g/dl (6.4-8.2)
[2023-10-14 09:19] LABS: ALBUMIN 2.8 g/dl (3.4-5.0)
[2023-10-14] MEDS: LISINOPRIL 10 MG TABLET PO SCH (09:26)
[2023-10-14] MEDS: FAMOTIDINE 20 MG TABLET PO SCH (09:26)
[2023-10-14] MEDS: TOPIRAMATE 25 MG TABLET PO SCH (09:27)
[2023-10-14] MEDS: ENOXAPARIN NA (PORCINE) 40 MG/0.4 ML DISP.SYRIN SQ SCH (09:27)
[2023-10-14] MEDS: OSELTAMIVIR PHOSPHATE 75 MG CAPSULE PO SCH ×2 (09:27→21:52)
[2023-10-14] MEDS: ASPIRIN 81 MG CHEWABLE TABLETS PO SCH (09:27)
[2023-10-14] MEDS: LIDOCAINE 4% PATCH TP SCH (09:27)
[2023-10-14] MEDS: LACTOBACILLUS ACIDOPHILUS 1 TABLET PO SCH ×2 (10:28→21:52)
[2023-10-14] MEDS ORDERED: INSULIN (NOVOLOG) ASPART 100 UNITS/ML 10ML VIAL ONE ×3 (11:30→21:48)
[2023-10-14 12:06] VITALS: RESP 20
[2023-10-14] MEDS ORDERED: predniSONE 20 MG TABLET (UD) PO ONE (12:16)
[2023-10-14] MEDS ORDERED: CEFTRIAXONE 1 GM in DEXTROSE 5%-WATER - 50 ML IVPB ONE (12:34)
[2023-10-14] MEDS: BANATROL PLUS POWDER PACKET PO SCH ×2 (13:44→21:52)
[2023-10-14] MEDS ORDERED: CARBAMIDE PEROXIDE 6.5% OTIC 15 ML BOTTLE AD ONE (14:17)
[2023-10-14] MEDS: ROSUVASTATIN CA 20 MG TABLET PO SCH (21:52)
[2023-10-14] MEDS: MOMETASONE FUROATE 220 MCG/IH INHALER IH SCH (21:53)
[2023-10-14] MEDS ORDERED: MONTELUKAST NA 10 MG TABLET PO SCH (22:00)
[2023-10-14] MEDS: LIDOCAINE PATCH REMOVAL MC SCH (22:10)
[2023-10-15] MEDS: GABAPENTIN 400 MG CAPSULE PO SCH ×2 (05:43→13:57)
[2023-10-15] MEDS: BANATROL PLUS POWDER PACKET PO SCH ×2 (05:43→13:57)
[2023-10-15] MEDS: INSULIN SLIDING SCALE (NOVOLOG) 1 VIAL SQ SCH ×2 (06:06→11:30)
[2023-10-15] MEDS ORDERED: INSULIN (NOVOLOG) ASPART 100 UNITS/ML 10ML VIAL ONE ×2 (06:07→11:30)
[2023-10-15] MEDS: ASPIRIN 81 MG CHEWABLE TABLETS PO SCH (09:39)
[2023-10-15] MEDS: OSELTAMIVIR PHOSPHATE 75 MG CAPSULE PO SCH (09:39)
[2023-10-15] MEDS: TOPIRAMATE 25 MG TABLET PO SCH (09:39)
[2023-10-15] MEDS: LACTOBACILLUS ACIDOPHILUS 1 TABLET PO SCH (09:39)
[2023-10-15] MEDS: FAMOTIDINE 20 MG TABLET PO SCH (09:39)
[2023-10-15] MEDS: LISINOPRIL 10 MG TABLET PO SCH (09:40)
[2023-10-15] MEDS: LIDOCAINE 4% PATCH TP SCH (09:40)
[2023-10-15] MEDS: ENOXAPARIN NA (PORCINE) 40 MG/0.4 ML DISP.SYRIN SQ SCH (09:40)
[2023-10-15] MEDS: MOMETASONE FUROATE 220 MCG/IH INHALER IH SCH (09:47)
[2023-10-15] MEDS ORDERED: predniSONE 20 MG TABLET (UD) PO SCH (10:00)
[2023-10-15 10:34] LABS: BASO % 0.4 % (0-2.0); EOS % 0.5 % (0-4.5); HEMATOCRIT 37.1 % (32.4-45.2); HEMOGLOBIN 12.4 GM/dL (10.7-15.3); MCH 28.4 pg (25.7-33.7); MCHC 33.3 g/dl (32.0-36.0); MEAN CELL VOLUME 85.5 fl (80-96); MEAN PLT VOLUME 9.5 fl (7.5-11.1); MONO % 9.4 % (3.8-10.2); NEUT % 62.7 % (42.8-82.8); PLATELET COUNT 209 10^3/uL (134-434); RBC 4.35 M/mm3 (3.60-5.2); RDW 14.2 % (11.6-15.6)
[2023-10-15 11:13] LABS: CALCIUM 8.4 mg/dL (8.5-10.1)
[2023-10-15 11:14] LABS: ALBUMIN 2.8 g/dl (3.4-5.0); BLOOD UREA NITROGEN 12.5 mg/dL (7-18); MAGNESIUM 1.8 mg/dL (1.8-2.4)
[2023-10-15 11:17] LABS: CREATININE 0.8 mg/dL (0.55-1.3)
[2023-10-15 11:18] LABS: BILIRUBIN,TOTAL 0.7 mg/dL (0.2-1); TOT PROT 6.3 g/dl (6.4-8.2)
[2023-10-15 14:41] VITALS: BP 147/83; PULSE 73; TEMP 97.9
== END 2023-10-15 15:38 | disposition home or self-care (01) ==
LOC: JER 17:22 → UNDOADMOB 21:03 → JERBED 21:03 → OBSVTOIN 22:38 → INTOOBSV 22:38 → JERBED 10-13 04:46 → J8W 10-13 04:46 → JERBED 10-14 14:19 → J8W 10-14 14:19
PROVIDERS: ADMIT Internal Medicine; ATTEND Nurse Practitioner Family
PROC: 3E033NZ Introduction of Analgesics, Hypnotics, Sedatives into Peripheral Vein, Percutaneous Approach (ICD-10-PCS; principal; 2023-10-14)
PROC: 3E03329 Introduction of Other Anti-infective into Peripheral Vein, Percutaneous Approach (ICD-10-PCS; 2023-10-14)
PROC: 3E023GC Introduction of Other Therapeutic Substance into Muscle, Percutaneous Approach (ICD-10-PCS; 2023-10-14)
PROC: 3E013VG Introduction of Insulin into Subcutaneous Tissue, Percutaneous Approach (ICD-10-PCS; 2023-10-14)
PROC: 3E0333Z Introduction of Anti-inflammatory into Peripheral Vein, Percutaneous Approach (ICD-10-PCS; 2023-10-14)
PROC: 3E0337Z Introduction of Electrolytic and Water Balance Substance into Peripheral Vein, Percutaneous Approach (ICD-10-PCS; 2023-10-14)
DX: J09.X2 Influenza due to identified novel influenza A virus with other respiratory manifestations (principal); E83.42 Hypomagnesemia; E78.00 Pure hypercholesterolemia, unspecified; E11.9 Type 2 diabetes mellitus without complications; Z90.49 Acquired absence of other specified parts of digestive tract; K21.9 Gastro-esophageal reflux disease without esophagitis; R51.9 Headache, unspecified; N39.0 Urinary tract infection, site not specified; Z29.89 Encounter for other specified prophylactic measures; Z87.891 Personal history of nicotine dependence
CPT/HCPCS: 0241U-QW; 36415; 71045-TC-FY; 80048; 80053; 81003; 82962; 83605; 83690; 83735; 83880; 84484; 85025; 85027; 85610; 85730; 86850; 86900; 86901; 87086; 87186; 93005; 93010; 96361; 96365; 96372; 96375; 96376; 97116-GP; 97161-GP; 99285-25; G0378

== ENCOUNTER 2023-11-28 17:22 | Emergency (ER) | payer OTHER ==
[2023-11-28 17:28] VITALS: BP 151/70; PULSE 94; RESP 18; TEMP 97.6; BMI 30.7
[2023-11-28] MEDS ORDERED: ACETAMINOPHEN 500 MG TABLET (FP) PO ONE (17:52)
[2023-11-28] MEDS ORDERED: ACETAMINOPHEN 325 MG TABLET (FP) ONE (18:00)
[2023-11-28] MEDS ORDERED: FAMOTIDINE 20 MG TABLET PO ONE (20:29)
[2023-11-28] MEDS ORDERED: MAG HYDROX/AL HYDROX/SIMETH 30 ML UNIT-DOSE CUP PO ONE (20:29)
[2023-11-28] MEDS ORDERED: MAG HYDROX/AL HYDROX/SIMETH 30 ML UNIT-DOSE CUP ONE (20:29)
[2023-11-28] MEDS ORDERED: FAMOTIDINE 20 MG TABLET ONE (20:29)
[2023-11-28 20:38] LABS: BASO % 0.7 % (0-2.0); EOS % 1.7 % (0-4.5); HEMATOCRIT 39.9 % (32.4-45.2); HEMOGLOBIN 13.1 GM/dL (10.7-15.3); LYMPH % 30.4 % (8-40); MCH 28.2 pg (25.7-33.7); MCHC 32.7 g/dl (32.0-36.0); MEAN CELL VOLUME 86.2 fl (80-96); MEAN PLT VOLUME 10.1 fl (7.5-11.1); MONO % 8.9 % (3.8-10.2); NEUT % 58.3 % (42.8-82.8); PLATELET COUNT 242 10^3/uL (134-434); RBC 4.63 M/mm3 (3.60-5.2); RDW 14.7 % (11.6-15.6); WHITE BLOOD COUNT 10.7 K/mm3 (4.0-10.0)
[2023-11-28 20:45] LABS: INR 1.06 (0.83-1.09); PROTHROMBIN TIME (PATIENT) 12.3 SEC (9.7-13.0)
[2023-11-28 20:57] LABS: CALCIUM 9.4 mg/dL (8.5-10.1)
[2023-11-28 20:58] LABS: ALBUMIN 3.3 g/dl (3.4-5.0); BLOOD UREA NITROGEN 17.4 mg/dL (7-18)
[2023-11-28 21:02] LABS: TOT PROT 6.9 g/dl (6.4-8.2)
[2023-11-28 21:03] LABS: BILIRUBIN,TOTAL 0.2 mg/dL (0.2-1)
== END 2023-11-28 23:31 | disposition home or self-care (01) ==
LOC: JER 17:22
DX: M25.512 Pain in left shoulder (principal); M54.2 Cervicalgia; M79.602 Pain in left arm; R20.0 Anesthesia of skin; F43.20 Adjustment disorder, unspecified; Z20.822 Contact with and (suspected) exposure to COVID-19
CPT/HCPCS: 0241U-QW; 36415; 71046-TC-FY; 80053; 84484; 85025; 85610; 85730; 93005; 93010; 99285-25

== ENCOUNTER 2025-05-25 22:47 | Emergency (ER) | payer OTHER ==
[~2025-05-25 22:47] MED LIST: LIDOCAINE PATCH REMOVAL MC SCH
[2025-05-25 22:56] VITALS: RESP 19; TEMP 98.1; BMI 29.0
[2025-05-25] MEDS ORDERED: KETOROLAC TROMETHAMINE 30 MG/1 ML VIAL ONE (23:17)
[2025-05-25] MEDS ORDERED: LIDOCAINE 5% TOPICAL PATCH ONE (23:17)
[2025-05-25] MEDS ORDERED: ACETAMINOPHEN 325 MG TABLET (FP) ONE (23:17)
[2025-05-25] MEDS: LIDOCAINE 5% TOPICAL PATCH TP ONE (23:26)
[2025-05-25] MEDS: ACETAMINOPHEN 500 MG TABLET (FP) PO ONE (23:27)
[2025-05-25] MEDS: KETOROLAC TROMETHAMINE 30 MG/1 ML VIAL IM ONE (23:27)
[2025-05-26 02:02] VITALS: BP 145/60; PULSE 65
== END 2025-05-26 02:02 | disposition home or self-care (01) ==
LOC: JER 22:47
PROC: 3E0233Z Introduction of Anti-inflammatory into Muscle, Percutaneous Approach (ICD-10-PCS; principal; 2025-05-25)
DX: M54.50 Low back pain, unspecified (principal); X50.9XXA Other and unspecified overexertion or strenuous movements or postures, initial encounter
CPT/HCPCS: 96372; 99284-25